=== PATIENT | male | born 1930 | race Caucasian/White ===

== ENCOUNTER → 2016-11-04 | Outpatient (CLI) | payer MEDICARE, OTHER ==
--- NOTE | 2016-11-04 10:57 | CT ---
EXAM DESCRIPTION: CT HEAD ANGIOGRAPHY WITH IV CONTRAST; CT HEAD WITHOUT IV CONTRAST CLINICAL HISTORY: 86 y/o M, Cerebral atherosclerosis; [facility] COMPARISON: None TECHNIQUE: Volumetric non contrasted CT of head was performed. Data was reconstructed for interpretation. Volumetric CT angiogram of the head was performed. The data was reconstructed into 3D rotational MIP images of the intracranial arterial structures. FINDINGS: CT head: There is considerable cerebral atrophy on today's study with prominent extra-axial spaces. No evidence of subdural hematoma. The ventricles are midline and unremarkable. Periventricular white matter disease noted. Old left frontal lobe encephalomalacia from prior infarct. 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 No acute intracranial blood on today's study. The orbits and the globes are unremarkable. Air-fluid levels noted within bilateral maxillary sinuses which can be compatible with acute sinusitis. CT angiogram of the head: No abrupt vascular occlusion on today's exam. Scattered luminal regularity is compatible with mild atherosclerotic disease. This is most pronounced within bilateral cavernous internal carotid arteries. No aneurysm greater than 3- 4 mm on today's exam. The left vertebral artery is dominant. The internal cerebral veins, cortical veins and dural venous sinuses are patent on today's study. 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 No evidence of severe stenosis or abrupt occlusion on today's study. No evidence of aneurysm greater than 3-4 mm in size. Electronically signed by: Travon Nieves MD 11/04/2016 10:55
== END ==
LOC: CT 09:31
PROVIDERS: ATTEND Psychiatry & Neurology Neurology
DX: G20 Parkinson's disease (principal); I67.2 Cerebral atherosclerosis; Z01.812 Encounter for preprocedural laboratory examination

== ENCOUNTER → 2017-09-06 | Outpatient (CLI) | payer MEDICARE, OTHER | END | disposition home or self-care (01) | LOC: GMAH 13:14 | PROVIDERS: ATTEND Family Medicine | DX: Z12.5 Encounter for screening for malignant neoplasm of prostate (principal); E78.2 Mixed hyperlipidemia | CPT/HCPCS: 84443; 84550; G0103 ==

== ENCOUNTER 2018-02-08 16:20 | Inpatient (IN) | payer MEDICARE, OTHER ==
--- NOTE | 2018-02-08 16:35 | HP ---
SUPERVISING PHYSICIAN: Tim Perry MD CHIEF COMPLAINT: Lower extremity swelling. HISTORY OF PRESENT ILLNESS: This is an 87-year-old male patient who came to see his primary care physician, Dr. Bob, today. He has had some swelling in his lower legs. His actually went out of time for several weeks and it is uncertain as the patient's compliance while she was gone, but the lower extremity edema has been going on for several days. He had some shortness of breath associated with it. He was in clinic today. He was a previous patient of Dr. Welch, manager nursing in [place], and no longer sees him. In January, he saw Dr. Mckeon for the first time. His last available echocardiogram was in 2010 and he an ejection fraction at that time of 65%. He had mild left ventricular hypertrophy and left atrial enlargement with underlying atrial flutter. His chest x-ray showed some vascular congestion and pulmonary edema and I was called for admission to the hospital. Past medical history and review of systems is limited due to the patient's inability to answer questions appropriately and there was no family available. Most information was taken from the EMR. PAST MEDICAL HISTORY: 1. Hyperlipidemia. 2. Gastroesophageal reflux disease. 3. Gout. 4. Hypertension. 5. Seasonal allergies. 6. Right knee pain. 7. Atrial fibrillation. 8. Coronary artery disease. 9. Hypothyroidism. 10. Hyperlipidemia. 11. Obstructive sleep apnea. 12. Congestive heart failure of unknown etiology with his last echocardiogram showing an ejection fraction of 65% in 2010. PAST SURGICAL HISTORY: 1. Appendectomy. 2. Pacemaker placement. 3. Coronary artery bypass graft. 4. Right total knee arthroplasty. 5. Left carotid endarterectomy. OUTPATIENT MEDICATIONS: Awaiting verification. ALLERGIES: NO KNOWN DRUG ALLERGIES. SOCIAL HISTORY: He denies tobacco or illicit drug use. He quit smoking in 1965. He drinks approximately 2 drinks of Scotch per day. REVIEW OF SYSTEMS: Limited except as per history of present illness due to the patient's mental status. PHYSICAL EXAMINATION: VITAL SIGNS: Afebrile. Heart rate 62. Blood pressure 164/92. Respiratory rate 20. O2 saturation 96% on room air. GENERAL: This is an 87-year-old male patient who is sitting up in his hospital bed. He has his CPAP in place. HEENT: Normocephalic, atraumatic. Pupils are equal and reactive. Oropharynx is clear. NECK: Supple without mass. There is no discernible jugular venous distention. RESPIRATORY: Bilateral crackles throughout. CHEST: There is equal rise and fall of the chest with inspiration and expiration. CARDIOVASCULAR: Regular rate and rhythm. There is a mild systolic murmur. GASTROINTESTINAL: Abdomen is soft, nondistended, nontender. Bowel sounds are positive. EXTREMITIES: He does have some pitting edema from just below the knee bilaterally extending distally to the feet. Pedal pulses are palpable at +1 to 2. NEUROLOGIC: Awake, alert and he answers some simple yes/no questions easily, but is easily confused. LABORATORY: WBCs 5.3, hemoglobin 10.6, hematocrit 32.1 PT 24.3, INR 2.1, PT-T 36.3. Sodium 131, potassium 4, chloride 97, carbon dioxide 26, BUN 21, creatinine 1.45. Glucose 106, serum osmolality 266, total bilirubin 1.3. Liver enzymes are within normal limits. BNP 716. Urinalysis shows moderate amount of urine blood and 30 to 40 urine RBCs. Chest x-ray shows vascular congestion. All other labs and films have been reviewed via the EMR. ASSESSMENT: 1. Exacerbation of congestive heart failure of unknown etiology. His last echocardiogram was in 2010 and his ejection fraction was 65%. 2. Electrolyte disturbance. 3. Hematuria. 4. Chronic renal insufficiency. 5. Gastroesophageal reflux disease. 6. Coronary artery disease. 7. Obstructive sleep apnea. 8. History of atrial fibrillation. PLAN: We will admit the patient to the hospital. I have initiated congestive heart failure guidelines. I will give him an extra dose of Lasix tonight. I will repeat his lab as well as chest x-ray in the morning. We will need to clarify his home medications as there are several duplicates on the list that we have and those will need to be clarified. We will also monitor the patient closely and follow as needed. Dr. Perry is the collaborating physician and available for consultation. #[id number] [facility]
[2018-02-08] MEDS ORDERED: NITROGLYCERIN 0.4 MG 25 EA TAB SL PRN (17:44)
[2018-02-08] MEDS ORDERED: MORPHINE SULFATE INJ 10 MG/ML VIAL IV PRN (17:44)
[2018-02-08] MEDS ORDERED: ENOXAPARIN SODIUM 40 MG/0.4 ML SYG SUBCU SCH (18:00)
[2018-02-08] MEDS ORDERED: IV SET AND CAP CHANGE INJ INJ SCH (18:00)
[2018-02-08] MEDS ORDERED: PANTOPRAZOLE SODIUM IV 40 MG VIAL IV SCH (18:00)
[2018-02-08] MEDS: FUROSEMIDE INJ 40 MG/4 ML VIAL IV SCH (18:46)
[2018-02-08] MEDS: SODIUM CHLORIDE 0.9% (FLUSH) 10 ML SYG IV PRN (18:47)
[2018-02-08] MEDS: SODIUM CHLORIDE 0.9% (FLUSH) 10 ML SYG IV SCH (20:37)
--- NOTE | 2018-02-09 07:26 | RAD ---
Examination: XR CHEST 2 VIEWS dated 02/09/2018 5:00 AM CDT History: chf Comparison: None Technique: 2 views of the chest Findings: Mild prominence of interstitial markings bilaterally without focal airspace consolidation. No pneumothorax or pleural effusion. Left chest wall cardiac pacer. Mild cardiomegaly. Prior CABG. Impression: Mild pulmonary vascular congestion. Electronically signed by: Thanh Benson MD 02/09/2018 7:25 AM CDT
[2018-02-09] MEDS: FUROSEMIDE INJ 40 MG/4 ML VIAL IV SCH ×2 (08:45→17:19)
[2018-02-09] MEDS: SODIUM CHLORIDE 0.9% (FLUSH) 10 ML SYG IV SCH ×2 (08:46→20:48)
[2018-02-09] MEDS ORDERED: ZOLPIDEM TARTRATE 10 MG TAB PO PRN (13:03)
[2018-02-09] MEDS ORDERED: POTASSIUM CHLORIDE 20 MEQ TAB PO ONE (13:07)
--- NOTE | 2018-02-09 14:50 | PN ---
SUPERVISING PHYSICIAN: Tim Perry MD DATE: 02/09/18 SUBJECTIVE: The patient is sitting up in his hospital bed. He continues complaints of swelling in his lower legs, but is much improved. He is also not as fatigued or short of breath as yesterday. He denies chest pain, nausea, vomiting, diarrhea. OBJECTIVE: VITAL SIGNS: Afebrile. Heart rate 60. Blood pressure 142/76. Respiratory rate 18. O2 saturation 90% on 2 liters nasal cannula. Intake 560 mL, output 3200 mL for a negative output of 2,640 mL. RESPIRATORY: A few scattered crackles across the apices, but much improved since yesterday. Somewhat diminished at the bases. CARDIAC: Regular rate and rhythm. Systolic murmur is noted. GASTROINTESTINAL: Abdomen is soft, nondistended, nontender. Bowel sounds are positive. EXTREMITIES: He has +2 edema from just below the knees down to the feet bilaterally. Skin is not as tight as yesterday. It has improved. NEUROLOGIC: Awake, alert. He does get easily confused with some simple questioning. LABORATORY: WBCs 5, hemoglobin 10.2, hematocrit 32.3. Sodium 133, potassium 3.5, chloride 96, BUN 20, creatinine 1.43, serum osmolality 269.6, magnesium 1.9. Urine culture pending. Chest x-ray shows mild pulmonary vascular congestion. All other labs and films have been reviewed via the EMR. ASSESSMENT: 1. Exacerbation of congestive heart failure of unknown etiology. His last echocardiogram was in 2010 and his ejection fraction was 65%. 2. Electrolyte disturbance. 3. Hematuria. 4. Chronic renal insufficiency. 5. Gastroesophageal reflux disease. 6. Coronary artery disease. 7. Obstructive sleep apnea. 8. History of atrial fibrillation. PLAN: We will continue present supportive care. I have ordered routine lab for in the morning. We will hold on a chest x-ray until later. Encouraged good pulmonary toilet including incentive spirometry. Continue his home medications. He will need an echocardiogram and is presently on a beta helen as well as an ARB and KERVIN. He needs to get up in the chair and ambulate at least 4 times a day. He will sees Dr. Mckeon and I will have the nurses call Dr. Mckeon' office to see the patient in the hospital tomorrow when Dr. Mckeon is in clinic. Hopefully we can government affairs director to p.o. Lasix tomorrow. Otherwise, we will continue to monitor the patient closely and follow as needed. #[id number] [facility]
[2018-02-09] MEDS: PANTOPRAZOLE SODIUM TAB 40 MG PO SCH (17:18)
[2018-02-09] MEDS: SODIUM CHLORIDE 0.9% (FLUSH) 10 ML SYG IV PRN (17:19)
[2018-02-09] MEDS: AMIODARONE HCL 200 MG TAB PO SCH (20:45)
[2018-02-09] MEDS: ALFUZOSIN HCL 10 MG PO SCH (20:45)
[2018-02-09] MEDS: IRBESARTAN 300 MG PO SCH (20:45)
[2018-02-09] MEDS: APIXABAN 2.5 MG TAB PO SCH (20:45)
[2018-02-09] MEDS: PRAMIPEXOLE 0.25 MG TAB PO SCH (20:46)
[2018-02-09] MEDS: MEMANTINE 10 MG TAB PO SCH (20:47)
[2018-02-09] MEDS: FINASTERIDE 5 MG TAB PO SCH (20:47)
[2018-02-09] MEDS: LEVOTHYROXINE SODIUM 0.1 MG TAB PO SCH (20:47)
[2018-02-09] MEDS: DETROL PO SCH (20:49)
[2018-02-09] MEDS: METOPROLOL SUCCINATE XL 50 MG TAB PO SCH (20:52)
[2018-02-09] MEDS ORDERED: ENOXAPARIN SODIUM 40 MG/0.4 ML SYG SUBCU SCH (21:00)
[2018-02-10] MEDS: PANTOPRAZOLE SODIUM TAB 40 MG PO SCH (06:18)
[2018-02-10] MEDS: PRAMIPEXOLE 0.25 MG TAB PO SCH ×2 (08:33→20:26)
[2018-02-10] MEDS: LORATADINE 10 MG TAB PO SCH (08:33)
[2018-02-10] MEDS: LISINOPRIL 10 MG TAB PO SCH (08:34)
[2018-02-10] MEDS: MEMANTINE 10 MG TAB PO SCH ×2 (08:34→20:27)
[2018-02-10] MEDS: POTASSIUM CHLORIDE 20 MEQ TAB PO SCH (08:34)
[2018-02-10] MEDS: APIXABAN 2.5 MG TAB PO SCH ×2 (08:34→20:26)
[2018-02-10] MEDS: ASPIRIN EC 81 MG TAB PO SCH (08:34)
[2018-02-10] MEDS: FUROSEMIDE INJ 40 MG/4 ML VIAL IV SCH (08:35)
[2018-02-10] MEDS: SODIUM CHLORIDE 0.9% (FLUSH) 10 ML SYG IV SCH ×2 (08:36→20:27)
[2018-02-10] MEDS: RIVASTIGMINE TARTRATE 4.5 MG PO SCH (08:42)
[2018-02-10] MEDS ORDERED: FEXOFENADINE HCL 180 MG PO SCH (09:00)
--- NOTE | 2018-02-10 18:45 | PN ---
SUPERVISING PHYSICIAN: Tim Perry MD DATE: 02/10/18 SUBJECTIVE: The patient is sitting up in his chair in his hospital room. He feels much better than he has. He has no shortness of breath. He also feels like his swelling has gone down substantially, especially in his face and his arms. He saw Dr. Mckeon in clinic today and we discussed Dr. Mckeon' findings. OBJECTIVE: VITAL SIGNS: Afebrile. Pulse rate 60. Blood pressure 129/72. Respiratory rate 20. O2 saturation 97% on room air. RESPIRATORY: Essentially clear to auscultation bilaterally. He is diminished at the bases. There is an occasional fine crackle in the apices. CARDIAC: Regular rate and rhythm. EXTREMITIES: He does have some +1 edema to his lower legs. There is +2 pedal edema to his bilateral feet. It is much improved since yesterday. Bilateral pedal pulses are palpable at +2. NEUROLOGIC: Awake, alert and oriented times three. LABORATORY: Sodium 131, potassium 3.8, chloride 96, BUN 20. Creatinine is improved to 1.3. Magnesium 1.9, total bilirubin 1.3. WBCs 5.7, hemoglobin 10.4 , hematocrit 31.6. Preliminary urine culture shows no growth after 24 hours. All other labs and films have been reviewed via the EMR. ASSESSMENT: 1. Exacerbation of congestive heart failure. The patient had an echocardiogram done today at Dr. Mckeon' office. His ejection fraction is 60%. He has some grade 3 to grade 4 diastolic dysfunction. 2. Electrolyte disturbance. 3. Hematuria. 4. Chronic renal insufficiency. 5. Gastroesophageal reflux disease. 6. Coronary artery disease. 7. Obstructive sleep apnea. 8. History of atrial fibrillation. PLAN: We will continue present supportive care. I discussed the patient's condition at length with Dr. Mckeon. He is to continue his present medications. There was a question if he was actually on Norvasc and his Norvasc had not been re-started here in the hospital, so he recommended we not continue the Norvasc. He is to continue on the amiodarone, metoprolol, Avapro, Lasix and Eliquis along with his other medications. He has an appointment with Dr. Mckeon in followup next Tuesday. At this point, I have held his NSAIDs due to his kidney function. That may be a question for Dr. Bob if he resumes those after discharge. I have ordered chest x-ray and lab for in the morning. We will continue to monitor the patient closely and follow as needed. Dr. Perry is the collaborating physician and available for consultation. #[id number] [facility]
[2018-02-10] MEDS: DETROL PO SCH (20:23)
[2018-02-10] MEDS: IRBESARTAN 300 MG PO SCH (20:25)
[2018-02-10] MEDS: GLYCOPYRROLATE PO SCH (20:25)
[2018-02-10] MEDS: ALFUZOSIN HCL 10 MG PO SCH (20:25)
[2018-02-10] MEDS: AMIODARONE HCL 200 MG TAB PO SCH (20:26)
[2018-02-10] MEDS: FINASTERIDE 5 MG TAB PO SCH (20:27)
[2018-02-10] MEDS: LEVOTHYROXINE SODIUM 0.1 MG TAB PO SCH (20:27)
[2018-02-10] MEDS: METOPROLOL SUCCINATE XL 50 MG TAB PO SCH (20:27)
[2018-02-10] MEDS ORDERED: ATORVASTATIN 20 MG TAB PO SCH (21:00)
[2018-02-11] MEDS: PANTOPRAZOLE SODIUM TAB 40 MG PO SCH (06:10)
--- NOTE | 2018-02-11 06:39 | RAD ---
EXAM DESCRIPTION: Chest,2 Views CLINICAL HISTORY: chf COMPARISON: 02/09/2018 FINDINGS: Frontal and lateral views of the chest. Median sternotomy. Atherosclerotic calcification aortic arch. Cardiomegaly. Left-sided pacemaker. Low lung volumes. No acute pneumonic process. Pulmonary vascular congestion. No large effusion. Degenerative change of the spine. No acute osseous abnormalities Upper abdominal soft tissues are unremarkable. IMPRESSION: 1. No significant interval change. Electronically signed by: Ranjan Cleveland 02/11/2018 6:38 AM CDT
[2018-02-11] MEDS: POTASSIUM CHLORIDE 20 MEQ TAB PO SCH (08:16)
[2018-02-11] MEDS ORDERED: FUROSEMIDE 40 MG TAB PO SCH (09:00)
[2018-02-11] MEDS: LISINOPRIL 10 MG TAB PO SCH (09:13)
[2018-02-11] MEDS: MEMANTINE 10 MG TAB PO SCH (09:13)
[2018-02-11] MEDS: ASPIRIN EC 81 MG TAB PO SCH (09:13)
[2018-02-11] MEDS: LORATADINE 10 MG TAB PO SCH (09:14)
[2018-02-11] MEDS: PRAMIPEXOLE 0.25 MG TAB PO SCH (09:14)
[2018-02-11] MEDS: APIXABAN 2.5 MG TAB PO SCH (09:14)
[2018-02-11] MEDS: SODIUM CHLORIDE 0.9% (FLUSH) 10 ML SYG IV SCH (09:15)
[2018-02-11] MEDS: RIVASTIGMINE TARTRATE 4.5 MG PO SCH (09:15)
[2018-02-11] MEDS: GLYCOPYRROLATE PO SCH (09:17)
[2018-02-11 11:51] VITALS: BP 134/78; TEMP 97.4; O2SAT 99
--- NOTE | 2018-02-13 11:51 | DS ---
SUPERVISING PHYSICIAN: Tim Perry MD DISCHARGE DIAGNOSES: 1. Exacerbation of congestive heart failure with an echocardiogram on current admission by Dr. Mckeon' office showing ejection fraction of 60% with a grade 3 to grade grade 4 diastolic dysfunction. 2. Electrolyte imbalance to include hypokalemia and hyponatremia. 3. Hematuria requiring close followup in outpatient setting. 4. Chronic renal insufficiency. 5. Gastroesophageal reflux disease. 6. Coronary artery disease. 7. Obstructive sleep apnea. 8. History of atrial fibrillation.with a controlled ventricular rate on current \ admission. REASON FOR HOSPITALIZATION: Mr. Farrar is an 87 year-old male patient who was seen in the office of Dr. Bob on date of admission with some lower leg swelling. His actually went out of town for several weeks and is not certain the patient was compliant with his medications while she was gone. The lower extremity edema has been going on for several days. He had some shortness of breath associated with it. He was in the clinic and seen previously by Dr. Welch, scientist in [place] who he no longer sees. In January he saw Dr. Mckeon for the first time and his last echocardiogram was in 2010 in which he had an ejection fraction at that time of 65% with a mild left ventricular hypertrophy and left atrial enlargement with underlying atrial flutter. His chest x-ray on admission showed vascular congestion and pulmonary edema. At that point, he was admitted to the hospital directly for exacerbation of congestive heart failure. LABORATORY STUDIES: CBC on admission showed a white count of 5,300, discharge 4 ,800. Hemoglobin and hematocrit were stable at 10.1 and 30.0. RBCs were within normal limits. Platelet count normal at 154,000. Differential showed to be without a left shift. Coagulation studies showed PT of 24.2, INR 2.1 with the patient on Eliquis. PTT was normal. Chemistries showed a hyponatremia initially with sodium of 131, potassium 4.0, BUN 21, creatinine 1.45, calcium 8.9, magnesium 1.9, bilirubin slightly elevated at 1.3. AST, ALT , alkaline phosphatase all within normal limits. BNP was elevated. After treatment and prior to discharge, electrolytes were still showing a significant hyponatremia but improved at 134, potassium was down to 3.3, BUN 20, creatinine 1.26. His osmolality had gone from 266 to 271, calcium 8.6. MICROBIOLOGY: Urine culture showed no growth at 48 hours.] RADIOLOGY: 2-view chest x-ray on the morning after admission and per radiology interpretation showed mild vascular congestion with followup with an additional chest x-ray on 02/11/18 prior to discharge and per radiology interpretation showed no significant interval changes. Please refer to those x-rays for full details. HOSPITAL COURSE: Mr. Farrar is admitted on 02/08 for exacerbation of congestive heart failure. He was put on fluid restriction and diureses with IV Lasix which he had good response to. I&O indicated that he had a negative balance prior to discharge and had dropped his weight initially from 110.1 kg to 106.6 kg. Vital signs showed to be stable with temperature 97.4, pulse 62, blood pressure 134/78, respirations 16, saturation 99% on room air. On admission his 02 saturations were showing 92% on room air. He had some desaturations with some aggressive effort down into the low 90s. He had no clinical complaints, had no chest pains and his edema had resolved down to a trace prior to discharge and he was felt clinically stable enough to continue with outpatient treatment management. He was seen in consultation by Dr. Mckeon who did an echocardiogram as noted above with an ejection fraction of 60 % with a grade 3 to 4 diastolic dysfunction. His medications will continue as previous except there was indication a some point he was on Norvasc and he was told to not take the Norvasc which could be exacerbating his lower extremity edema as well as given his worsening kidney function, Dr. Mckeon decreased his Eliquis dosing from 5 mg twice a day to 2.5 mg twice a day. PLAN: Mr. Farrar was discharged on 02/11/18 to have close clinical followup with his primary care physician, Dr. Bob. He was to call Dr. Bob's office on Tuesday and he also had a followup appointment with Dr. Mckeon on Tuesday after discharge. He was told to stop NSAIDS including Aleve, Advil, ibuprofen until he sees Dr. Bob. He is also to lower his dose of Eliquis from 5 b..i.d. to 2.5 mg. He is to resume all his medications as instructed and return to the hospital should he have any worsening symptoms. Discharge diet was low-salt diet, fluid restrictions, activity to increase as tolerated. Discharge medications: Eliquis 2.5 mg, #30. All new medications resume as previous. Condition on discharge was stable and improved. [id number] [facility]
== END 2018-02-11 15:06 | disposition home or self-care (01) | DRG 291 ==
LOC: MS 16:20
PROVIDERS: ADMIT Nurse Practitioner Acute Care; ATTEND Nurse Practitioner Family
DX: I13.0 Hypertensive heart and chronic kidney disease with heart failure and stage 1 through stage 4 chronic kidney disease, or unspecified chronic kidney disease (principal); I50.33 Acute on chronic diastolic (congestive) heart failure; E87.1 Hypo-osmolality and hyponatremia; E87.6 Hypokalemia; R31.9 Hematuria, unspecified; N18.9 Chronic kidney disease, unspecified; K21.9 Gastro-esophageal reflux disease without esophagitis; I25.10 Atherosclerotic heart disease of native coronary artery without angina pectoris; G47.33 Obstructive sleep apnea (adult) (pediatric); I48.91 Unspecified atrial fibrillation; E78.5 Hyperlipidemia, unspecified; M10.9 Gout, unspecified; J30.9 Allergic rhinitis, unspecified; E03.9 Hypothyroidism, unspecified; Z91.14 Patient's other noncompliance with medication regimen; Z95.1 Presence of aortocoronary bypass graft; Z95.0 Presence of cardiac pacemaker; Z96.651 Presence of right artificial knee joint; Z79.02 Long term (current) use of antithrombotics/antiplatelets; Z87.891 Personal history of nicotine dependence; Z79.899 Other long term (current) drug therapy

== ENCOUNTER → 2018-07-18 | Outpatient (CLI) | payer MEDICARE, OTHER | LOC: GMAH 14:46 | PROVIDERS: ATTEND Family Medicine | DX: I50.9 Heart failure, unspecified (principal) ==

== ENCOUNTER 2019-03-09 09:59 | Observation (INO) | payer MEDICARE, OTHER ==
--- NOTE | 2019-03-09 10:24 | ED.PDOC ---
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 - History of Present Illness Timing/Duration: 1 week Severity: moderate Improving Factors: nothing Worsening Factors: nothing Associated Symptoms: denies symptoms Allergies/Adverse Reactions: Allergies NO KNOWN ALLERGY Allergy (Verified 02/08/18 20:14) Home Medications: Ambulatory Orders Amiodarone HCl [Pacerone] 200 mg PO BEDTIME 06/24/16 Aspirin [Aspirin EC] 81 mg PO DAILY 06/24/16 Finasteride [Proscar] 5 mg PO BEDTIME 06/24/16 Furosemide [Lasix] 20 mg PO DAILY 06/24/16 Ibuprofen 800 mg PO Q8HRS PRN 06/24/16 Metoprolol Succinate [Metoprolol Succinate ER] 50 mg PO BEDTIME 06/24/16 Multiple Vitamins W/ Minerals [Multi For Him 50+] 1 tab PO DAILY 06/24/16 Potassium Chloride [K-Tab] 20 meq PO DAILY 06/24/16 Tolterodine Tartrate ER [Detrol LA] 2 mg PO BEDTIME 06/24/16 Zolpidem Tartrate [Ambien] 10 mg PO BEDTIME PRN 06/24/16 Levothyroxine Sodium [Synthroid] 100 mcg PO BEDTIME 06/29/16 Atorvastatin Calcium [Lipitor] 20 mg PO DAILY 02/08/18 Memantine HCl [Namenda] 10 mg PO DAILY 02/08/18 Pantoprazole Tablet [Protonix] 40 mg PO DAILY 02/08/18 Rivastigmine Tartrate 4.5 mg PO BID 02/08/18 Apixaban [Eliquis] 2.5 mg PO BID #30 tab 02/11/18 Alfuzosin HCl [Uroxatral] 10 mg PO DAILY 03/09/19 Losartan Potassium 100 mg PO DAILY 03/09/19 Meloxicam [Mobic] 7.5 mg PO DAILY 03/09/19 Metolazone 2.5 mg PO DAILY 03/09/19 Sacubitril-Valsartan [Entresto 24-26 mg] 1 tab PO BID 03/09/19 Review of Systems - Review of Systems Constitutional: States: weakness EENTM: States: no symptoms reported Respiratory: States: no symptoms reported Cardiology: States: no symptoms reported Gastrointestinal/Abdominal: States: constipation Genitourinary: States: no symptoms reported Musculoskeletal: States: no symptoms reported Skin: States: no symptoms reported Neurological: States: no symptoms reported Endocrine: States: no symptoms reported Hematologic/Lymphatic: States: no symptoms reported Past Medical History (General) - Patient Medical History Hx Stroke: No Hx Dementia: Yes Hx Asthma: No Hx of COPD: No Hx Congestive Heart Failure: No Hx Pacemaker: Yes Hx Hypertension: Yes Hx Diabetes: No Hx MRSA: No Surgical History: pacemaker - Social History Hx Alcohol Use: - drinks 2 scotch/night Family Medical History - Family History Father Family History: Unknown Physical Exam - Physical Exam General Appearance: Alert, Lethargic Ears, Nose, Throat: hearing grossly normal, normal ENT inspection, normal pharynx Neck: non-tender, full range of motion, supple Respiratory: chest non-tender, lungs clear, normal breath sounds Cardiovascular/Chest: normal peripheral pulses, regular rate, rhythm, no edema Gastrointestinal/Abdominal: normal bowel sounds, non tender, soft, no organomegaly, distended Rectal Exam: normal exam, normal rectal tone Back Exam: normal inspection, no CVA tenderness Extremity: normal range of motion, non-tender, normal inspection, no pedal edema Neurologic: strategy manager II-XII nml as tested, no motor/sensory deficits, alert, normal mood/affect, oriented x 3 Skin Exam: normal color Lymphatic: no adenopathy Progress - Results/Orders Results/Orders: Laboratory Tests 03/09/19 03/09/19 03/09/19 10:00 10:05 10:21 WBC RBC Hgb Hct MCV MCH MCHC RDW Plt Count MPV Absolute Neuts (auto) Absolute Lymphs (auto) Absolute Monos (auto) Absolute Eos (auto) Absolute Basos (auto) Neutrophils % Lymphocytes % Monocytes % Eosinophils % Basophils % PT 15.8 H INR 1.59 H PTT (SP) 32.8 H Sodium Potassium Chloride Carbon Dioxide Anion Gap BUN Creatinine BUN/Creatinine Ratio Random Glucose Serum Osmolality Calcium Total Bilirubin AST ALT Alkaline Phosphatase Serum Total Protein Albumin Globulin Albumin/Globulin Ratio Urine Color Yellow Urine Appearance Clear Urine pH 7.0 Ur Specific [place] 1.015 Urine Protein Negative Urine Glucose (UA) Negative Urine Ketones Negative Urine Blood Negative Urine Nitrite Negative Urine Bilirubin Negative Urine Urobilinogen 1.0 Ur Leukocyte Esterase Negative Urine RBC 0-1 Urine WBC 0-1 Ur Epithelial Cells 0-1 Urine Bacteria 0 Stool Occult Blood Positive 03/09/19 03/09/19 10:26 10:26 WBC 6.4 RBC 3.58 L Hgb 11.0 L Hct 32.8 L MCV 91.5 MCH 30.8 MCHC 33.6 RDW 14.8 H Plt Count 155 MPV 7.3 L Absolute Neuts (auto) 4.10 Absolute Lymphs (auto) 1.30 Absolute Monos (auto) 0.80 Absolute Eos (auto) 0.10 Absolute Basos (auto) 0.00 Neutrophils % 64.0 Lymphocytes % 20.9 Monocytes % 12.8 H Eosinophils % 1.7 Basophils % 0.6 PT INR PTT (SP) Sodium 124 L Potassium 3.4 L Chloride 89 L Carbon Dioxide 24 Anion Gap 14.4 BUN 35 H Creatinine 1.59 H BUN/Creatinine Ratio 22.0 H Random Glucose 112 H Serum Osmolality 258.4 L Calcium 8.8 Total Bilirubin 1.4 H AST 62 H ALT 52 Alkaline Phosphatase 57 Serum Total Protein 6.9 Albumin 3.8 Globulin 3.1 Albumin/Globulin Ratio 1.2 Urine Color Urine Appearance Urine pH Ur Specific [place] Urine Protein Urine Glucose (UA) Urine Ketones Urine Blood Urine Nitrite Urine Bilirubin Urine Urobilinogen Ur Leukocyte Esterase Urine RBC Urine WBC Ur Epithelial Cells Urine Bacteria Stool Occult Blood Departure - Departure Clinical Impression: Acute urinary retention, Occult GI bleeding, CAD (coronary artery disease), Chronic atrial fibrillation, Hyponatremia, Acute kidney injury Time of Disposition: 12:20 Disposition: Admit Patient Condition: Good Departure Forms: ED Discharge - Pt. Copy, Patient Portal Self Enrollment Referrals: Brock Bob MD [Primary Care Provider] - 1-2 Weeks Home Medications: Ambulatory Orders Amiodarone HCl [Pacerone] 200 mg PO BEDTIME 06/24/16 Aspirin [Aspirin EC] 81 mg PO DAILY 06/24/16 Finasteride [Proscar] 5 mg PO BEDTIME 06/24/16 Furosemide [Lasix] 20 mg PO DAILY 06/24/16 Ibuprofen 800 mg PO Q8HRS PRN 06/24/16 Metoprolol Succinate [Metoprolol Succinate ER] 50 mg PO BEDTIME 06/24/16 Multiple Vitamins W/ Minerals [Multi For Him 50+] 1 tab PO DAILY 06/24/16 Potassium Chloride [K-Tab] 20 meq PO DAILY 06/24/16 Tolterodine Tartrate ER [Detrol LA] 2 mg PO BEDTIME 06/24/16 Zolpidem Tartrate [Ambien] 10 mg PO BEDTIME PRN 06/24/16 Levothyroxine Sodium [Synthroid] 100 mcg PO BEDTIME 06/29/16 Atorvastatin Calcium [Lipitor] 20 mg PO DAILY 02/08/18 Memantine HCl [Namenda] 10 mg PO DAILY 02/08/18 Pantoprazole Tablet [Protonix] 40 mg PO DAILY 02/08/18 Rivastigmine Tartrate 4.5 mg PO BID 02/08/18 Apixaban [Eliquis] 2.5 mg PO BID #30 tab 02/11/18 Alfuzosin HCl [Uroxatral] 10 mg PO DAILY 03/09/19 Losartan Potassium 100 mg PO DAILY 03/09/19 Meloxicam [Mobic] 7.5 mg PO DAILY 03/09/19 Metolazone 2.5 mg PO DAILY 03/09/19 Sacubitril-Valsartan [Entresto 24-26 mg] 1 tab PO BID 03/09/19 Comments: DISCUSSED WITH DR ASENCIO WHO WILL TAKE OVER THE MANAGEMENT OF THE PATIENT IN HOSPITAL
--- NOTE | 2019-03-09 10:53 | RAD ---
EXAM: Chest,1 View CLINICAL HISTORY: Congestive heart failure COMPARISON STUDY: February 11, 2018 FINDINGS: Single view of the chest demonstrates an enlarged cardiac silhouette. There is no overt edema or visible central vascular congestion. No large effusion is identified. There is no consolidation. Sternotomy wires are present. The pacemaker stable. IMPRESSION: CARDIOMEGALY WITHOUT ACUTE ABNORMALITY. Electronically signed by: Graham Dominguez MD 03/09/2019 10:51 AM CDT
[2019-03-09] MEDS ORDERED: SODIUM CHLORIDE 0.9% 500ML 500 ML IVS ONE (11:39)
--- NOTE | 2019-03-09 11:41 | CT ---
EXAM DESCRIPTION: Head CLINICAL HISTORY: AMS COMPARISON: Previous CT head November 04, 2016 TECHNIQUE: Noncontrast head CT was performed with routine protocol. FINDINGS: Normal lang-white matter differentiation. Ventricles and sulci are prominent consistent with age-related cerebral volume loss. Prominent extra-axial CSF spaces around the cerebral hemispheres. CSF spaces prominent around the cerebellar hemispheres with cystic area along the posterior superior aspect of the left cerebellar hemisphere measuring 3.6 x 8.1 cm consistent with arachnoid cyst. This previously measured 3.6 x 8.3 cm. No interval growth. No high density hemorrhage, focal edema or shift of the midline. No sulcal effacement. Normal orbital contents. Basilar cisterns appear clear. Intact calvarium with no fracture or lytic lesion. Arteriosclerotic calcification of the intracranial internal carotid arteries and left middle cerebral artery as progressed. Normal aeration of tympanic cavities and mastoid air cells. No fluid levels in the paranasal sinuses. Skull base appears intact. Symmetrical internal auditory canals. Coronal and sagittal reformatted images confirm the findings. IMPRESSION: No acute intracranial pathologic process. This exam was performed according to our departmental dose-optimization program, which includes automated exposure control, adjustment of the mA and/or kV according to patient size and/or use of iterative reconstruction technique. Total DLP equals 967.47 mGycm. Electronically signed by: Bhavesh Valentin MD 03/09/2019 11:39 AM CDT
[2019-03-09] MEDS ORDERED: SODIUM CHLORIDE 0.9% 1000ML 1,000 ML IVS ONE (11:42)
--- NOTE | 2019-03-09 11:44 | CT ---
EXAM DESCRIPTION: Abdomen/Pelvis w/Contrast CLINICAL HISTORY: 88 years Male, ABD DISTENSION NAD PAIN COMPARISON: 24 September 2009 TECHNIQUE: Transaxial images were obtained with intravenous contrast medium without oral contrast media. Sagittal and coronal reconstruction was performed.This exam was performed according to our departmental dose-optimization program, which includes automated exposure control, adjustment of the mA and/or kV according to patient size and/or use of iterative reconstruction technique. FINDINGS: The lung bases are clear. A pacemaker is observed in the heart. The liver and spleen are unremarkable. A gallstone is observed in the gallbladder. No adrenal masses are detected. The pancreas is normal in appearance. Calcific atherosclerotic changes observed in the abdominal aorta without evidence of aneurysmal dilatation. Imaging of the kidneys reveals no evidence of hydronephrosis mass cyst or calcification. Small accessory spleen is observed. Diverticulosis of the colon is observed without evidence of diverticulitis. Marked distention of urinary bladder is observed. No inguinal region abnormality is seen. Degenerative changes are observed in the lumbar spine. IMPRESSION: 1. Cholelithiasis. 2. Uncomplicated diverticulosis of colon. 3. Marked distention of urinary bladder is observed suggesting bladder outlet obstruction. Electronically signed by: Jose Piedra MD 03/09/2019 11:42 AM CDT
--- NOTE | 2019-03-09 12:35 | HP ---
HISTORY OF PRESENT ILLNESS: The patient is an 88-year-old gentleman who lives at home with his who was brought to the clinic early this morning with slightly decreasing mentation over a couple of weeks along with very profound increase in shortness of breath and weakness with minimal exertion. At the clinic visit, the also commented that several times over the last couple of weeks there was a minor amount of blood seen in his underwear and on his sheets while changing. Otherwise, she states he has been about the same as far as his mentation goes, but just is a little bit more quiet in social situations than normal. He was sent to the Emergency Room after that for evaluation for fecal impaction and assessment of rectal bleeding and mentation decline. In the Emergency Room, he was found to be slightly hyponatremic with a minor elevation of BUN and creatinine from his baseline. He was found to be Hemoccult positive on digital rectal examination without any savana blood appreciated. Abdominopelvic CT also noted some diverticulosis without infection. Also noted was moderate bladder distention significant for bladder outlet obstruction. The Emergency Room physician was able to catheterize the patient and retrieve 1800 mL of urine. Urinalysis was clean with no sign of infection. Hospitalist was called for potential admission for observation given the above problems. REVIEW OF SYSTEMS: GENERAL: The patient is lying in bed asleep, but easy to arouse, baseline in mentation. RESPIRATORY: No cough or shortness of breath while resting. CARDIAC: Denies any chest pain or palpitations, does have baseline pedal edema bilaterally. GASTROINTESTINAL: Denies abdominal pain, slight constipation per the . NEUROLOGICAL: Near baseline regarding mentation per the , he denies any headache at this time. SKIN: Nurse noted reddening and skin thinning in bilateral inguinal creases, the was unaware. PAST MEDICAL HISTORY: 1. Congestive heart failure of unknown type. 2. Coronary artery disease. 3. Chronic atrial fibrillation on anticoagulation. 4. Status post pacemaker placement. 5. Hypothyroidism. PAST SURGICAL HISTORY: 1. Pacemaker placement. 2. Right knee arthroplasty. 3. Appendectomy. MEDICATIONS: 1. Amiodarone. 2. Aspirin. 3. Finasteride. 4. Lasix. 5. Metoprolol. 6. Levothyroxine. 7. Atorvastatin. 8. Namenda. 9. Eliquis. 10. Rivastigmine. 11. Metolazone. For remainder of medications, please see the chart. SOCIAL HISTORY: He denies illicit drug use or tobacco use, does drink scotch and club soda, very diluted, a couple of times per week. PHYSICAL EXAMINATION: VITAL SIGNS: Temperature 97.1. Pulse paced rhythm at 60 beats per minute. Blood pressure 120/80. Respiratory rate 16. O2 saturation 97% on room air. GENERAL: The patient is lying in bed sleeping, but easily arouses, no acute distress and in good spirits. RESPIRATORY: Lungs clear to auscultation without bibasilar crackles, no wheezing. CARDIOVASCULAR: Normal rate and rhythm, II/ holosystolic murmur, pulses equal in all extremities at 2+. GASTROINTESTINAL: Soft, nontender to palpation, no masses. SKIN: Reddening of skin in bilateral inguinal areas with skin thinning and satellite lesion indicative of infection, slight moist discharge in the creases from infection with odor. NEUROLOGIC: Alert and oriented to person and place, no focal deficits. LABORATORY: WBC 6.4, hemoglobin 11, hematocrit 32.8, platelet count 155. PT 15.8, INR 1.59, PTT 32.8. Sodium 124, potassium 3.4, chloride 89, CO2 24, BUN 35, creatinine 1.59. Total bilirubin 1.4, AST 62. All others within normal limits. Urinalysis negative for infection. Stool occult blood positive. RADIOLOGY: Abdominopelvic CT with contrast 03/09/19 shows 1) Cholelithiasis, 2) Uncomplicated diverticulosis of colon, 3) Marked distention of urinary bladder suggesting bladder outlet obstruction. Head CT without contrast 03/09/19 shows no acute intracranial process. Chest x-ray 03/09/19 shows cardiomegaly without acute abnormality. ASSESSMENT: 1. Hyponatremia. 2. Hypochloremia. 3. Normocytic anemia. 4. Diverticulosis. 5. Hemoccult stool positive. 6. Diffuse weakness. 7. Constipation versus fecal impaction. 8. Unspecified congestive heart failure. 9. Coronary artery disease. 10. Chronic atrial fibrillation on anticoagulation. 11. Status post pacemaker placement. 12. Chronic hypothyroidism. 13. Chronic hypertension. PLAN: The patient's admission is multifactorial, but I suspect rapid improvement. We will address his hyponatremia and electrolyte abnormalities with normal saline at maintenance rate, given his ability to adequate p.o. intake per the and the patient. Given his complaint of rectal bleeding and very minimal normocytic anemia, I am going to run hemoglobin and hematocrit q.8h. until tomorrow to assess any decline in hemoglobin. After that time, he may be able to undergo a simple enema. In the meantime, we will continue MiraLAX, but dose that medicine b.i.d. He has physical therapy arranged his home health company, [employer]. We will get physical therapy evaluation while here and ask for help in disposition assistance. We will follow his labs in the following days to make sure his electrolyte abnormalities normalize. I assume he will be here for at least one, possibly two midnights. The patient's primary care physician is Dr. Bob. Plan discussed in detail with the patient, and daughter of the patient, all in agreement. #[id number] MTDD
[2019-03-09] MEDS ORDERED: SODIUM CHLORIDE 0.9% (FLUSH) 10 ML SYG IV PRN (13:05)
[2019-03-09] MEDS ORDERED: ALFUZOSIN HCL 10 MG PO SCH (13:15)
[2019-03-09] MEDS ORDERED: metOLazone 2.5 MG TAB PO SCH (13:30)
[2019-03-09] MEDS ORDERED: LOSARTAN POTASSIUM 100 MG TAB PO SCH (13:30)
[2019-03-09] MEDS: MEMANTINE 10 MG TAB PO SCH (15:22)
[2019-03-09] MEDS: APIXABAN 2.5 MG TAB PO SCH ×2 (15:23→20:42)
[2019-03-09] MEDS: SODIUM CHLORIDE 0.9% 1000ML 1,000 ML IVS PRN (16:21)
[2019-03-09] MEDS: ALFUZOSIN HCL 10 MG PO SCH (20:39)
[2019-03-09] MEDS: AMIODARONE HCL 200 MG TAB PO SCH (20:41)
[2019-03-09] MEDS: GLYCOPYRROLATE 2 MG PO SCH (20:43)
[2019-03-09] MEDS: POLYETHYLENE GLYCOL 3350 17 GM PCKT PO SCH (20:44)
[2019-03-09] MEDS: NYSTATIN POWDER 15GM BTTL TOP SCH (20:44)
[2019-03-09] MEDS: FINASTERIDE 5 MG TAB PO SCH (20:45)
[2019-03-09] MEDS: RIVASTIGMINE TARTRATE 4.5 MG PO SCH (20:45)
[2019-03-09] MEDS: SACUBITRIL VALSARTAN PO SCH (20:45)
[2019-03-09] MEDS: METOPROLOL SUCCINATE XL 50 MG TAB PO SCH (20:49)
[2019-03-09] MEDS: LEVOTHYROXINE SODIUM 0.1 MG TAB PO SCH (20:52)
[2019-03-09] MEDS ORDERED: TOLTERODINE TARTRATE ER 4 MG CAP PO SCH (21:00)
[2019-03-10] MEDS: SODIUM CHLORIDE 0.9% 1000ML 1,000 ML IVS PRN ×3 (00:05→21:38)
[2019-03-10] MEDS: IV SET AND CAP CHANGE INJ INJ SCH (06:07)
[2019-03-10] MEDS: metOLazone 2.5 MG TAB PO SCH (06:09)
[2019-03-10] MEDS ORDERED: POTASSIUM CHLORIDE 20 MEQ TAB PO ONE (06:40)
[2019-03-10] MEDS: ASPIRIN (ENTERIC COATED) 81 MG TAB PO SCH (10:39)
[2019-03-10] MEDS: POTASSIUM CHLORIDE 20 MEQ TAB PO SCH (10:39)
[2019-03-10] MEDS: ATORVASTATIN 20 MG TAB PO SCH (10:39)
[2019-03-10] MEDS: PANTOPRAZOLE SODIUM TAB 40 MG PO SCH (10:39)
[2019-03-10] MEDS: MEMANTINE 10 MG TAB PO SCH (10:39)
[2019-03-10] MEDS: APIXABAN 2.5 MG TAB PO SCH ×2 (10:39→20:46)
[2019-03-10] MEDS: FUROSEMIDE 40 MG TAB PO SCH (10:40)
[2019-03-10] MEDS: RIVASTIGMINE TARTRATE 4.5 MG PO SCH (10:41)
[2019-03-10] MEDS: SACUBITRIL VALSARTAN PO SCH ×2 (10:42→20:49)
[2019-03-10] MEDS: GLYCOPYRROLATE 2 MG PO SCH ×2 (10:47→20:45)
[2019-03-10] MEDS: POLYETHYLENE GLYCOL 3350 17 GM PCKT PO SCH (10:48)
[2019-03-10] MEDS: NYSTATIN POWDER 15GM BTTL TOP SCH ×4 (10:48→20:47)
--- NOTE | 2019-03-10 19:38 | PN ---
DATE: 03/10/19 SUPERVISING PHYSICIAN: Jonathan Nichole M.D. SUBJECTIVE: The patient is resting in the bedside chair. Appears to be comfortable. He is still having some intermittent urges to have bowel movements but is not having any real good results. Discussed that I feel like maybe that he is constipated, especially with some large amount of stool in his rectum that is possibly resulting in his urinary retention. I did discuss with him and his that we would work to relieve his constipation and work to get his Adams out. They are in agreement with that. We also did discuss that the does want the patient if he is a good candidate to go to outpatient rehab through [facility]. OBJECTIVE: VITAL SIGNS: Temperature 97.4, pulse 59, blood pressure 96/58, respirations 18, satting 97% on room air. I's and O's show a negative balance of 5862. Weight 103.0 kg. GENERAL: The patient is resting comfortably. Appears to be in no acute distress. CHEST: Lung sounds are clear to auscultation. HEART: Regular rate and rhythm. ABDOMEN: Obese but soft, non- tender. Positive bowel sounds. GENITOURINARY: Adams catheter remains in place with clear yellow urine in the Adams bag with no signs of complications. EXTREMITIES: Without any edema. NEUROLOGIC: He is alert and oriented times three. LABORATORY: White count 5, 600, hemoglobin showing to be stable through the every 8 hours cycle of H&Hs and now is at 10.2 and 30.5, platelet count 130,000. Differential shows to be without a left shift. Chemistries: Sodium is improving slightly, it is up to 128. Potassium is down to 2.9, chloride 94, BUN 29, creatinine 1.3 which is improved from yesterday. ASSESSMENT: 1. Electrolyte imbalance with hyponatremia, hypochloremia and hypokalemia secondary to diuresis with Lasix and Zaroxolyn showing some slight improvement with fluids. 2. Normocytic anemia, but showing to be stable. 3. Diverticulosis without any evidence of diverticulitis. 4. Hemoccult stool positive with stable H&H likely due to constipation. 5. Diffuse weakness exacerbated by #1 showing some slight improvement with therapy and fluids. 6. Constipation versus fecal impaction likely resulting in some mechanical urinary retention from bladder outlet obstruction requiring more aggressive management with laxatives and mechanical disimpaction. 7. Congestive heart failure of unknown etiology, likely a diastolic combined systolic, but showing to be stable with no exacerbation noted. 8. Coronary artery disease. 9. Chronic atrial fibrillation showing to have a controlled ventricular rate on chronic anticoagulation. 10. Status post pacemaker placement. 11. Chronic hypothyroidism on supplementation. 12. Chronic hypertension showing to be stable. PLAN: Will work to remove the large amount of stool seen in his rectum on CT study. Will start with a soap suds enema. If we have good results with this, then will utilize MiraLAX and Milk of Magnesia. Will leave the Adams in for right now until we can get him cleaned out. Once he is showing good bowel movements will remove the Adams and see if he does have any additional retention of urine. Will continue with physical therapy. Will consult with [facility] on Tuesday for rehabilitation efforts. Anticipate the patient will discharge at least on Tuesday or Tuesday. Until then will continue to monitor and treat as needed. #[id number] [facility]
[2019-03-10] MEDS: ALFUZOSIN HCL 10 MG PO SCH (20:45)
[2019-03-10] MEDS: TOLTERODINE TARTRATE ER 4 MG CAP PO SCH (20:46)
[2019-03-10] MEDS: METOPROLOL SUCCINATE XL 50 MG TAB PO SCH (20:46)
[2019-03-10] MEDS: AMIODARONE HCL 200 MG TAB PO SCH (20:46)
[2019-03-10] MEDS: LEVOTHYROXINE SODIUM 0.1 MG TAB PO SCH (20:47)
[2019-03-10] MEDS: FINASTERIDE 5 MG TAB PO SCH (20:49)
[2019-03-11] MEDS ORDERED: ALPRAZolam 0.25 MG TAB PO ONE (00:44)
[2019-03-11] MEDS: metOLazone 2.5 MG TAB PO SCH (06:24)
[2019-03-11] MEDS: SODIUM CHLORIDE 0.9% 1000ML 1,000 ML IVS PRN (06:27)
[2019-03-11] MEDS: MEMANTINE 10 MG TAB PO SCH (09:57)
[2019-03-11] MEDS: MAGNESIUM HYDROXIDE 30 ML UD PO SCH (09:57)
[2019-03-11] MEDS: PANTOPRAZOLE SODIUM TAB 40 MG PO SCH (09:57)
[2019-03-11] MEDS: APIXABAN 2.5 MG TAB PO SCH ×2 (09:57→20:48)
[2019-03-11] MEDS: POTASSIUM CHLORIDE 20 MEQ TAB PO SCH (09:57)
[2019-03-11] MEDS: ATORVASTATIN 20 MG TAB PO SCH (09:57)
[2019-03-11] MEDS: ASPIRIN (ENTERIC COATED) 81 MG TAB PO SCH (09:57)
[2019-03-11] MEDS: SACUBITRIL VALSARTAN PO SCH ×2 (09:58→20:40)
[2019-03-11] MEDS: RIVASTIGMINE TARTRATE 4.5 MG PO SCH (09:58)
[2019-03-11] MEDS: FUROSEMIDE 40 MG TAB PO SCH (09:59)
[2019-03-11] MEDS: GLYCOPYRROLATE 2 MG PO SCH ×2 (09:59→20:41)
[2019-03-11] MEDS: NYSTATIN POWDER 15GM BTTL TOP SCH ×4 (10:00→20:54)
[2019-03-11] MEDS: BISACODYL TAB 5 MG TAB PO SCH (13:01)
--- NOTE | 2019-03-11 13:12 | PN ---
DATE: 03/11/19 SUPERVISING PHYSICIAN: Jonathan Nichole M.D. SUBJECTIVE: The patient has just finished breakfast. He had a little bit of restlessness through the night but did well with just a very tiny dose of Xanax. He actually does not have any recall of being restless and confused through the night. He did have several bowel movements yesterday after the enema and stool softeners. I discussed with him this morning that we will remove his Adams as this seems to be irritating him. He has not had any shortness of breath, chest pains and he remains afebrile. He is in agreement that he wants to go to [facility] for rehab which we will pursue tomorrow. OBJECTIVE: VITAL SIGNS: Temperature 97.9, pulse 60, blood pressure 114/67, respirations 18, satting 97% on room air. I's and O's show a positive balance of 1610 with 4660 in, 3050 out. Weight is 102.6 kg. GENERAL: The patients is sitting in the bedside chair, just finished breakfast. Appears to be in no acute distress. He is alert. CHEST: Sounds are clear to auscultation bilaterally. HEART: Regular rate and rhythm. ABDOMEN: Obese but soft, non- tender. Positive bowel sounds. EXTREMITIES: Without any edema. NEUROLOGIC: He is alert and oriented times three. LABORATORY: Chemistries show sodium 131, potassium 3.3, chloride 97, creatinine is now normalized to 1.24. MICROBIOLOGY: No microbiology specimens. RADIOLOGY: No additional radiographic studies. ASSESSMENT: 1. Constipation versus fecal impaction likely resulting in some mechanical urinary retention from bladder outlet obstruction requiring more aggressive management with laxatives and mechanical disimpaction. Patient having good response to treatment. 2. Electrolyte imbalance with hyponatremia, hypochloremia and hypokalemia secondary to diuresis with Lasix and Zaroxolyn showing some slight improvement with fluids with the patient showing returning to baseline levels with fluids. 3. Normocytic anemia, but showing to be stable. 4. Diverticulosis without any evidence of diverticulitis. 5. Hemoccult stool positive with stable H&H likely due to constipation. 6. Diffuse weakness exacerbated by #1 showing some slight improvement with therapy and fluids. The patient does require ongoing physical therapy and would benefit from inpatient rehab. 7. Congestive heart failure of unknown etiology, likely a diastolic combined systolic, but showing to be stable with no exacerbation noted. 8. Coronary artery disease. 9. Chronic atrial fibrillation showing to have a controlled ventricular rate on chronic anticoagulation. 10. Status post pacemaker placement. 11. Chronic hypothyroidism on supplementation. 12. Chronic hypertension showing to be stable. PLAN: Will go ahead and pull his Adams today as this has just been irritating and see if this improves his need for multiple bowel movements. He has had some success with the laxatives, Milk of Magnesia and MiraLAX. Will watch his output closely and should he show that he is again retaining, will replace the Adams and he will need a followup with urology. Given that he does have CHF and his electrolytes are returning to baseline levels, will go ahead and saline lock him as he is having adequate oral intake. I did discuss with his and himself that he would benefit from aggressive inpatient rehab. They are in agreement to go into [facility]. Will plan to get a consultation in the morning and anticipate discharge possibly later tomorrow afternoon. Until then will continue to monitor and treat as needed. #[id number] [facility]ENTER[facility]mar[facility]it
[2019-03-11] MEDS: SODIUM CHLORIDE 0.9% (FLUSH) 10 ML SYG IV SCH ×2 (13:13→20:53)
[2019-03-11] MEDS ORDERED: FLUCONAZOLE 150 MG TAB PO ONE (16:57)
[2019-03-11] MEDS: TOLTERODINE TARTRATE ER 4 MG CAP PO SCH (20:39)
[2019-03-11] MEDS: ALFUZOSIN HCL 10 MG PO SCH (20:40)
[2019-03-11] MEDS: AMIODARONE HCL 200 MG TAB PO SCH (20:48)
[2019-03-11] MEDS: LEVOTHYROXINE SODIUM 0.1 MG TAB PO SCH (20:48)
[2019-03-11] MEDS: METOPROLOL SUCCINATE XL 50 MG TAB PO SCH (20:48)
[2019-03-11] MEDS: KETOCONAZOLE CREAM 15 GM TUBE TOP SCH (20:48)
[2019-03-11] MEDS: FINASTERIDE 5 MG TAB PO SCH (20:48)
[2019-03-12] MEDS: metOLazone 2.5 MG TAB PO SCH (06:24)
[2019-03-12] MEDS: BISACODYL TAB 5 MG TAB PO SCH (08:13)
[2019-03-12] MEDS: ATORVASTATIN 20 MG TAB PO SCH (08:14)
[2019-03-12] MEDS: FUROSEMIDE 40 MG TAB PO SCH (08:14)
[2019-03-12] MEDS: ASPIRIN (ENTERIC COATED) 81 MG TAB PO SCH (08:14)
[2019-03-12] MEDS: POTASSIUM CHLORIDE 20 MEQ TAB PO SCH (08:15)
[2019-03-12] MEDS: APIXABAN 2.5 MG TAB PO SCH (08:15)
[2019-03-12] MEDS: SODIUM CHLORIDE 0.9% (FLUSH) 10 ML SYG IV SCH (08:15)
[2019-03-12] MEDS: PANTOPRAZOLE SODIUM TAB 40 MG PO SCH (08:15)
[2019-03-12] MEDS: MEMANTINE 10 MG TAB PO SCH (08:15)
[2019-03-12] MEDS: MAGNESIUM HYDROXIDE 30 ML UD PO SCH (08:16)
[2019-03-12] MEDS: RIVASTIGMINE TARTRATE 4.5 MG PO SCH (08:21)
[2019-03-12] MEDS: SACUBITRIL VALSARTAN PO SCH (08:21)
[2019-03-12] MEDS: GLYCOPYRROLATE 2 MG PO SCH (08:22)
[2019-03-12] MEDS: NYSTATIN POWDER 15GM BTTL TOP SCH ×2 (08:27→14:39)
[2019-03-12] MEDS: KETOCONAZOLE CREAM 15 GM TUBE TOP SCH (09:07)
[2019-03-12] MEDS: IV SET AND CAP CHANGE INJ INJ SCH (13:41)
[2019-03-12 14:55] VITALS: BP 122/73; TEMP 97.5; O2SAT 99
--- NOTE | 2019-03-12 15:20 | PN ---
SUPERVISING PHYSICIAN: Thanh Leon MD DATE: 03/12/19 SUBJECTIVE: The patient is relaxing in his bed this morning. He notes he had a good night. He has had good response and no problems with his bladder since he has had the Adams catheter removed. He has had several more bowel movements and has no further complaints. Cherrie Goetz is here for arranged transfer to inpatient facility for rehab. OBJECTIVE: VITAL SIGNS: He remains afebrile. Temperature 96. Pulse 60. Blood pressure 120/73. Respirations 16. Saturation 98% on room air. I&Os show positive balance of 489 with 1490 in, 1001 out. Weight 103.7 kg. GENERAL: The patient is comfortable. He appears to be in no acute distress. He is alert. CHEST: Lungs clear to auscultation. HEART: Regular rate and rhythm. ABDOMEN: Soft, nontender. Positive bowel sounds. EXTREMITIES: Without any edema. NEUROLOGIC: He is alert and oriented times three. LABORATORY: No additional laboratory studies were completed. ASSESSMENT: 1. Constipation versus fecal impaction likely resulting in some mechanical urinary retention from bladder outlet obstruction requiring more aggressive management with laxatives and mechanical disimpaction. Patient having good response to treatment. 2. Electrolyte imbalance with hyponatremia, hypochloremia and hypokalemia, returning to baseline levels with chronic hyponatremia secondary to Lasix and Zaroxolyn, but stable. 3. Normocytic anemia, stable. 4. Diverticulosis without any evidence of diverticulitis. 5. Hemoccult stool positive with stable hemoglobin and hematocrit, likely due to constipation. 6. Diffuse weakness exacerbated by #1, showing some slight improvement with therapy and fluids. The patient does require ongoing physical therapy and would benefit from inpatient rehab. 7. Congestive heart failure of unknown etiology, likely a diastolic combined systolic, but stable with no exacerbation noted. 8. Coronary artery disease. 9. Chronic atrial fibrillation showing to have a controlled ventricular rate on chronic anticoagulation. 10. Status post pacemaker placement. 11. Chronic hypothyroidism on supplementation. 12. Chronic hypertension, stable. PLAN: We will continue with current plan of care today, which is physical therapy until he can be transferred to [facility]. If he does not go today, I will plan to give him another dose of Milk of Magnesia overnight to further attempt to clean out his colon and decrease his constipation as I believe this was the result of his urinary retention. He remains on an oral diet and saline locked. He is doing well with that. His is in agreement with the plan of care. As soon as we do have arrangements, we will be transferred to [facility] via their transport vehicle. Until then, we will continue to monitor and treat as needed. #[id number] MTDD
--- NOTE | 2019-03-13 19:33 | DS ---
SUPERVISING PHYSICIAN: Thanh Leon M.D. ADMISSION DIAGNOSIS: 1. Hyponatremia. 2. Hypochloremia. 3. Normocytic anemia. 4. Diverticulosis. 5. Hemoccult stool positive. 6. Diffuse weakness. 7. Constipation versus fecal impaction. 8. Unspecified congestive heart failure. 9. Coronary artery disease. 10. Chronic atrial fibrillation on anticoagulation. 11. Status post pacemaker placement. 12. Chronic hypothyroidism. 13. Chronic hypertension. DISCHARGE DIAGNOSIS: 1. Constipation versus fecal impaction likely resulting in some mechanical urinary retention from bladder outlet obstruction requiring more aggressive management with laxatives and mechanical disimpaction. Patient having good response to treatment. 2. Electrolyte imbalance with hyponatremia, hypochloremia and hypokalemia, returning to baseline levels with chronic hyponatremia secondary to Lasix and Zaroxolyn, but stable. 3. Normocytic anemia, stable. 4. Diverticulosis without any evidence of diverticulitis. 5. Hemoccult stool positive with stable hemoglobin and hematocrit, likely due to constipation. 6. Diffuse weakness exacerbated by #1, showing some slight improvement with therapy and fluids. The patient does require ongoing physical therapy and would benefit from inpatient rehab. 7. Congestive heart failure of unknown etiology, likely a diastolic combined systolic, but stable with no exacerbation noted. 8. Coronary artery disease. 9. Chronic atrial fibrillation showing to have a controlled ventricular rate on chronic anticoagulation. 10. Status post pacemaker placement. 11. Chronic hypothyroidism on supplementation. 12. Chronic hypertension, stable. REASON FOR HOSPITALIZATION: The patient is an 88-year-old gentleman who lives at home with his who was brought to the clinic early this morning with slightly decreasing mentation over a couple of weeks along with very profound increase in shortness of breath and weakness with minimal exertion. At the clinic visit, the also commented that several times over the last couple of weeks there was a minor amount of blood seen in his underwear and on his sheets while changing. Otherwise, she states he has been about the same as far as his mentation goes, but just is a little bit more quiet in social situations than normal. He was sent to the Emergency Room after that for evaluation for fecal impaction and assessment of rectal bleeding and mentation decline. In the Emergency Room, he was found to be slightly hyponatremic with a minor elevation of BUN and creatinine from his baseline. He was found to be Hemoccult positive on digital rectal examination without any savana blood appreciated. Abdominopelvic CT also noted some diverticulosis without infection. Also noted was moderate bladder distention significant for bladder outlet obstruction. The Emergency Room physician was able to catheterize the patient and retrieve 1800 mL of urine. Urinalysis was clean with no sign of infection. Hospitalist was called for potential admission for observation given the above problems. LABORATORY: White count on admission was 6,400, at discharge was 5,600. He had serial H&Hs drawn, initially was 11.0 and 32.8 respectively and it remained stable. The last one done on 03/10/19 was at 10.2 and 30.5. Platelet counts were within normal limits at 138,000. Differential showed to be without a left shift. Coagulation studies showed a PT of 15.8, PTT of 32.8. Chemistries did show hyponatremia at 124 initially on admission, the last one prior to discharge was showing to be at 131. Potassium 3.3 and carbon dioxide was normal at 26. BUN initially was 35, at discharge was 22. Initial creatinine was 1.59, at discharge was 1.24. Calciums were within normal limits at 8.8. Total bilirubin was slightly elevated at 1.4. AST was slightly elevated at 62. Urinalysis was within normal limits. He did have 1 occult blood that was positive. MICROBIOLOGY: No microbiology specimens were submitted. RADIOLOGY: He had an abdominal/pelvis CT in the E. R. prior to admission which showed cholelithiasis, complicated diverticulosis of the colon and marked distention of the urinary bladder was observed suggesting bladder outlet obstruction. He had a chest x-ray in the E. R. prior to admission and per radiology interpretation showed cardiomegaly without acute abnormalities. He had a CT of the head without contrast and per radiology interpretation showed no acute intracranial pathological processes. HOSPITAL COURSE: Mr. Farrar was admitted initially for urinary retention and concerns for possible GI bleed as he does take Eliquis. He had serial H&Hs drawn which remained stable. In the E. R. initially he had a urinary catheter placed with well over 1800 mL out. After further examination and clinical course, the patient was showing to be severely constipated with a large burden of stool in his rectum. This was relieved with enemas and stool softeners and laxatives. He did have good response to those treatments and after which his catheter was removed after bladder training. In 24 hours he had not had any signs of urinary retention. He was having some extremity weakness, significantly deconditioned, therefore consultation was secured through [facility] for inpatient rehab. On the day of discharge, he was showing to be stable with his hemoglobin and hematocrit, and having bowel movements and no urinary retention, and then was accepted to [facility] for continuation of his rehabilitation efforts. PLAN: Mr. Farrar was discharged on 03/12/19 to go as an inpatient to [facility] in [place]. He was to be transported by the facility's van. He was instructed to see Dr. Bob in 7 to 10 days or as needed and directed. He was to resume a usual diet as tolerated. Activity is as per Physical Therapy. Prescriptions provided at discharge included: 1. Dulcolax 10 mg tablet daily. 2. Ketoconazole cream twice daily to areas of rash. 3. Nystatin powder as needed. All other medications prior to hospitalization were continued. DISPOSITION: The patient was discharged to transfer to [facility] and transported by van. Discharge condition was stable and improving. #[id number] [facility]
== END 2019-03-12 17:19 ==
LOC: ER 09:59 → MS 12:33 → INTOOBSV 12:33
PROVIDERS: ADMIT Family Medicine; ATTEND Nurse Practitioner Family
DX: E87.1 Hypo-osmolality and hyponatremia (principal); E87.8 Other disorders of electrolyte and fluid balance, not elsewhere classified; E87.6 Hypokalemia; R33.8 Other retention of urine; D64.9 Anemia, unspecified; K57.30 Diverticulosis of large intestine without perforation or abscess without bleeding; K92.1 Melena; R53.1 Weakness; I11.0 Hypertensive heart disease with heart failure; I50.9 Heart failure, unspecified; I25.10 Atherosclerotic heart disease of native coronary artery without angina pectoris; I48.2 Chronic atrial fibrillation; E03.9 Hypothyroidism, unspecified; N17.9 Acute kidney failure, unspecified; K80.20 Calculus of gallbladder without cholecystitis without obstruction; Z95.0 Presence of cardiac pacemaker; Z79.01 Long term (current) use of anticoagulants; Z79.82 Long term (current) use of aspirin; Z79.899 Other long term (current) drug therapy
CPT/HCPCS: 96360; 96361 ×2; J7030 ×6; 80048 ×2; 82270; 80053; 85014 ×2; 85018 ×2; 36415 ×3; 81001; 85025 ×2; 85730; 85610; 71045; 70450; 74177; 94760 ×6; 97116 ×3; G8978; G8979; 97162; 99285; G0378

== ENCOUNTER 2019-03-29 00:34 | Inpatient (IN) | payer MEDICARE, OTHER ==
--- NOTE | 2019-03-29 00:56 | ED.PDOC ---
History of Present Illness - General Chief Complaint: Back Pain or Injury Stated Complaint: left arm pain x5 days, increasing Time Seen by Provider: 03/29/19 00:35 Source: patient, family Exam Limitations: clinical condition - dementia - History of Present Illness Initial Comments: Patient presents with left arm and shoulder pain for 5 days. The says that it has progressively gotten worse. Upon arrival, the patient denies any pain in the arm. 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 No other history is available from the patient. According to medical records, he has CAD with a ventricular pacemakers as well as extensive OA. Timing/Duration: other - 5 days Severity: moderate Improving Factors: nothing Worsening Factors: nothing Associated Symptoms: denies symptoms Allergies/Adverse Reactions: Allergies NO KNOWN ALLERGY Allergy (Verified 03/29/19 01:46) Home Medications: Ambulatory Orders Amiodarone HCl [Pacerone] 200 mg PO BEDTIME 06/24/16 Aspirin [Aspirin EC] 81 mg PO DAILY 06/24/16 Finasteride [Proscar] 5 mg PO BEDTIME 06/24/16 Furosemide [Lasix] 20 mg PO DAILY 06/24/16 Metoprolol Succinate [Metoprolol Succinate ER] 50 mg PO BEDTIME 06/24/16 Multiple Vitamins W/ Minerals [Multi For Him 50+] 1 tab PO DAILY 06/24/16 Potassium Chloride [K-Tab] 20 meq PO DAILY 06/24/16 Levothyroxine Sodium [Synthroid] 100 mcg PO BEDTIME 06/29/16 Atorvastatin Calcium [Lipitor] 20 mg PO DAILY 02/08/18 Memantine HCl [Namenda] 10 mg PO DAILY 02/08/18 Pantoprazole Tablet [Protonix] 40 mg PO DAILY 02/08/18 Rivastigmine Tartrate 4.5 mg PO DAILY 02/08/18 Apixaban [Eliquis] 2.5 mg PO BID #30 tab 02/11/18 Glycopyrrolate 2 mg PO BID 03/09/19 Meloxicam [Mobic] 7.5 mg PO DAILY 03/09/19 Metolazone 2.5 mg PO DAILY 03/09/19 Sacubitril-Valsartan [Entresto 24-26 mg] 1 tab PO BID 03/09/19 Bisacodyl [Dulcolax Tab] 10 mg PO DAILY tab 03/12/19 Ketoconazole Cream [Nizoral Cream] 1 applic TOP BID appli 03/12/19 Nystatin Powder 1 applic TOP QID appli 03/12/19 Acetaminophen [Tylenol] 650 mg PO .Q4H PRN 03/29/19 Balsam [place] Oil [Venelex] 1 oin EX BID 03/29/19 Belladonna Alkaloids & Opium [Belladonna/Opium 16.2-30 mg] 1 sup HI BID PRN 03/29/19 Bisacodyl [Dulcolax] 10 mg HI DAILY 03/29/19 Fluticasone Prop 0.05% Nasal [Flonase Nasal [place]] 100 mcg NA DAILY 03/29/19 Lidocaine 2% Gel [Xylocaine 2% GEL] 2 % TOP .Q6H PRN 03/29/19 Loratadine [Claritin] 10 mg PO DAILY 03/29/19 Modafinil [Provigil] 200 mg PO ACBK 03/29/19 Pantoprazole Tablet [Protonix] 40 mg PO ACBK 03/29/19 Polyethylene Glycol 3350 [Miralax] 17 gm PO DAILY 03/29/19 Saline [Nasal Moist] 0.65 % NA .Q3H PRN 03/29/19 Senna/Docusate Tab [Senokot-S] 2 ea PO BID 03/29/19 Senna/Docusate Tab [Senokot-S] 2 ea PO PRN 03/29/19 Simethicone 80 mg PO PRN PRN 03/29/19 Tamsulosin 0.4 mg PO BID 03/29/19 Review of Systems - Review of Systems Constitutional: States: no symptoms reported EENTM: States: no symptoms reported Respiratory: States: no symptoms reported Cardiology: States: no symptoms reported Gastrointestinal/Abdominal: States: no symptoms reported Genitourinary: States: no symptoms reported Musculoskeletal: States: see HPI Skin: States: no symptoms reported Neurological: States: no symptoms reported Endocrine: States: no symptoms reported Hematologic/Lymphatic: States: no symptoms reported Past Medical History (General) - Patient Medical History Hx Seizures: No Hx Stroke: Yes - adrian [id number] Hx Dementia: Yes Hx Asthma: No Hx of COPD: Yes Hx Congestive Heart Failure: No - fatiques easily Hx Pacemaker: Yes Hx Hypertension: Yes Hx Diabetes: No Hx MRSA: No - Social History Hx Alcohol Use: - drinks 2 scotch/night Family Medical History - Family History Father Family History: Unknown Physical Exam - Physical Exam General Appearance: Alert Eye Exam: bilateral normal Ears, Nose, Throat: normal ENT inspection Neck: non-tender, full range of motion, supple Respiratory: lungs clear, normal breath sounds Cardiovascular/Chest: normal peripheral pulses, regular rate, rhythm Gastrointestinal/Abdominal: normal bowel sounds, non tender, soft Back Exam: normal inspection, no CVA tenderness Extremity: normal range of motion, non-tender, normal inspection Neurologic: shipper/receiver II-XII nml as tested, no motor/sensory deficits, alert, normal mood/affect Skin Exam: other - decubitus ulcers on buttocks Lymphatic: no adenopathy Progress - Progress Progress: 03/29/19 01:59 Laboratory Tests 03/29/19 03/29/19 03/29/19 00:52 00:52 00:52 WBC 8.3 RBC 3.64 L Hgb 11.1 L Hct 32.7 L MCV 90.1 MCH 30.6 MCHC 34.0 RDW 15.4 H Plt Count 297 MPV 6.8 L Absolute Neuts (auto) 6.10 Absolute Lymphs (auto) 1.30 Absolute Monos (auto) 0.70 Absolute Eos (auto) 0.10 Absolute Basos (auto) 0.10 Neutrophils % 73.0 Lymphocytes % 16.1 L Monocytes % 8.3 Eosinophils % 1.3 Basophils % 1.3 PT 14.3 H INR 1.44 H PTT (SP) Sodium 120 L Potassium 3.5 L Chloride 90 L Carbon Dioxide 22 Anion Gap 11.5 L BUN 20 H Random Glucose 110 H Serum Osmolality 245.5 L* Calcium 7.8 L Magnesium 1.3 L Total Bilirubin 0.9 AST 168 H ALT 156 H Alkaline Phosphatase 118 Creatine Kinase 52 CK-MB (CK-2) 2.2 CK-MB (CK-2) % Not Reportable Troponin I < 0.02 B-Natriuretic Peptide 442.0 H* Serum Total Protein 6.7 Albumin 3.0 L Globulin 3.7 H Albumin/Globulin Ratio 0.8 L 03/29/19 00:53 WBC RBC Hgb Hct MCV MCH MCHC RDW Plt Count MPV Absolute Neuts (auto) Absolute Lymphs (auto) Absolute Monos (auto) Absolute Eos (auto) Absolute Basos (auto) Neutrophils % Lymphocytes % Monocytes % Eosinophils % Basophils % PT INR PTT (SP) 36.2 H Sodium Potassium Chloride Carbon Dioxide Anion Gap BUN Random Glucose Serum Osmolality Calcium Magnesium Total Bilirubin AST ALT Alkaline Phosphatase Creatine Kinase CK-MB (CK-2) CK-MB (CK-2) % Troponin I B-Natriuretic Peptide Serum Total Protein Albumin Globulin Albumin/Globulin Ratio CXR showed mild edematous infiltrates diffusely. wbc wnl. No fever. Unlikely to be infectious. Probably cardiogenic edema. Troponin negative. EKG showed ventricular paced rhythm. Sodium 120. Mildly elevated LFTs. Patient admitted for hyponatremia and elevated LFTs. Was given Tylenol #3 po x one in the E.D. due to the pain of the decubitus ulcers. Departure - Departure Clinical Impression: Hyponatremia, Elevated LFTs Disposition: Admit Patient Condition: Fair Departure Forms: ED Discharge - Pt. Copy, Patient Portal Self Enrollment Diet: other - as per hospitalist Activity: as per physical therapy Referrals: Brock Bob MD [Primary Care Provider] - 1-2 Weeks Home Medications: Ambulatory Orders Amiodarone HCl [Pacerone] 200 mg PO BEDTIME 06/24/16 Aspirin [Aspirin EC] 81 mg PO DAILY 06/24/16 Finasteride [Proscar] 5 mg PO BEDTIME 06/24/16 Furosemide [Lasix] 20 mg PO DAILY 06/24/16 Metoprolol Succinate [Metoprolol Succinate ER] 50 mg PO BEDTIME 06/24/16 Multiple Vitamins W/ Minerals [Multi For Him 50+] 1 tab PO DAILY 06/24/16 Potassium Chloride [K-Tab] 20 meq PO DAILY 06/24/16 Levothyroxine Sodium [Synthroid] 100 mcg PO BEDTIME 06/29/16 Atorvastatin Calcium [Lipitor] 20 mg PO DAILY 02/08/18 Memantine HCl [Namenda] 10 mg PO DAILY 02/08/18 Pantoprazole Tablet [Protonix] 40 mg PO DAILY 02/08/18 Rivastigmine Tartrate 4.5 mg PO DAILY 02/08/18 Apixaban [Eliquis] 2.5 mg PO BID #30 tab 02/11/18 Glycopyrrolate 2 mg PO BID 03/09/19 Meloxicam [Mobic] 7.5 mg PO DAILY 03/09/19 Metolazone 2.5 mg PO DAILY 03/09/19 Sacubitril-Valsartan [Entresto 24-26 mg] 1 tab PO BID 03/09/19 Bisacodyl [Dulcolax Tab] 10 mg PO DAILY tab 03/12/19 Ketoconazole Cream [Nizoral Cream] 1 applic TOP BID appli 03/12/19 Nystatin Powder 1 applic TOP QID appli 03/12/19 Acetaminophen [Tylenol] 650 mg PO .Q4H PRN 03/29/19 Balsam [place] Oil [Venelex] 1 oin EX BID 03/29/19 Belladonna Alkaloids & Opium [Belladonna/Opium 16.2-30 mg] 1 sup HI BID PRN 03/29/19 Bisacodyl [Dulcolax] 10 mg HI DAILY 03/29/19 Fluticasone Prop 0.05% Nasal [Flonase Nasal [place]] 100 mcg NA DAILY 03/29/19 Lidocaine 2% Gel [Xylocaine 2% GEL] 2 % TOP .Q6H PRN 03/29/19 Loratadine [Claritin] 10 mg PO DAILY 03/29/19 Modafinil [Provigil] 200 mg PO ACBK 03/29/19 Pantoprazole Tablet [Protonix] 40 mg PO ACBK 03/29/19 Polyethylene Glycol 3350 [Miralax] 17 gm PO DAILY 03/29/19 Saline [Nasal Moist] 0.65 % NA .Q3H PRN 03/29/19 Senna/Docusate Tab [Senokot-S] 2 ea PO BID 03/29/19 Senna/Docusate Tab [Senokot-S] 2 ea PO PRN 03/29/19 Simethicone 80 mg PO PRN PRN 03/29/19 Tamsulosin 0.4 mg PO BID 03/29/19 Critical Care Note - Critical Care Note Total Time (mins): 100
--- NOTE | 2019-03-29 01:22 | RAD ---
EXAM: XR Left Shoulder Complete, 2 or More Views CLINICAL HISTORY: The patient is 88 years old and is Male; shoulder pain TECHNIQUE: Two or more views of the left shoulder. COMPARISON: No relevant prior studies available. FINDINGS: BONES/JOINTS: Degenerative change of the acromioclavicular joint with joint space narrowing and spurring is present. The glenohumeral joint is intact. There is no acute fracture. No dislocation. SOFT TISSUES: Unremarkable. IMPRESSION: No acute findings. Electronically signed by: Stephany Sanchez MD 03/29/2019 1:20 AM CDT
--- NOTE | 2019-03-29 01:22 | RAD ---
EXAM: XR Chest, 1 View CLINICAL HISTORY: The patient is 88 years old and is Male; shoulder pain TECHNIQUE: Frontal view of the chest. COMPARISON: Chest radiograph March 09, 2019. FINDINGS: LUNGS: Mild diffuse interstitial opacities are present. There are slightly low lung volumes. PLEURAL SPACE: Unremarkable. No pneumothorax. HEART: The cardiac silhouette is enlarged. MEDIASTINUM: Unremarkable. BONES/JOINTS: Median sternotomy wires and vascular clips are present. TUBES, LINES AND DEVICES: Left-sided pacemaker is present. IMPRESSION: Cardiomegaly with findings suggestive of mild edematous, infectious, or inflammatory process. No lobar consolidation. Electronically signed by: Stephany Sanchez MD 03/29/2019 1:20 AM CDT
[2019-03-29] MEDS ORDERED: SODIUM CHLORIDE 0.9% 1000ML 1,000 ML IVS PRN (01:57)
[2019-03-29] MEDS ORDERED: ACETAMINOPHEN W/COD #3 TAB 1 EA TAB PO ONE (01:57)
[2019-03-29] MEDS ORDERED: NITROGLYCERIN 0.4 MG 25 EA TAB SL PRN (02:02)
[2019-03-29] MEDS ORDERED: SODIUM CHLORIDE 0.9% (FLUSH) 10 ML SYG IV PRN (02:02)
[2019-03-29] MEDS ORDERED: MAGNESIUM SULFATE PREMIX 2GM 2 GM in PREMIX BAG 1 BAG IVPB ONE ×2 (02:07→19:53)
--- NOTE | 2019-03-29 02:11 | HP ---
SUPERVISING PHYSICIAN: Ranjan Chau M.D. CHIEF COMPLAINT: Left arm pain. HISTORY OF PRESENT ILLNESS: Mr. Farrar is an 88 year-old male patient who presented to the Emergency Room earlier this morning for left arm and shoulder pain. The noted that the pain has worsened. He also has chronic pain from decubitus ulcers on his buttocks. He just got out of [facility] this past Tuesday and his reports that he has not been able to sleep or get any position in comfort due to the pain associated with his decubitus on his buttocks. She also notes that he is severely declining in his strength since discharge. Laboratory studies in the E. R. showed he had hyponatremia with sodium 120, osmolality was 245, magnesium 1.3, creatinine 1.17. BNP was elevated at 442. Troponin on initial presentation was less than 0.02 and 6 hours post admission was 0.02. X-ray of his left shoulder showed no acute findings. He had a chest x-ray as well and per radiology interpretation showed cardiomegaly with findings suggestive of mild edematous, infectious or inflammatory process but no lobar consolidation. Given his advanced age, decline in his strength and significant hyponatremia, the patient is going to be admitted now for further treatment and evaluation. He was admitted in stable condition. PAST MEDICAL HISTORY: 1. Congestive heart failure of unknown type. 2. Coronary artery disease. 3. Chronic atrial fibrillation on anticoagulation. 4. Status post pacemaker placement. 5. Hypothyroidism. PAST SURGICAL HISTORY: 1. Pacemaker placement. 2. Right knee arthroplasty. 3. Appendectomy. HOME MEDICATIONS: 1. Flomax 0.4 mg b.i.d. 2. Simethicone 80 mg p.r.n. 3. Senokot S 2 tablets b.i.d. as needed. 4. Entresto 24-26 mg 1 tablet b.i.d. 5. Rivastigmine tartrate 20 mg daily. 6. Potassium chloride 20 mEq daily. 7. MiraLAX 17 grams daily. 8. Protonix 40 mg b.i.d. 9. Nystatin powder as needed topically. 10. Multivitamin 1 tablet daily. 11. Metoprolol succinate 50 mg at bedtime. 12. Metolazone 2.5 mg daily. 13. Namenda 10 mg daily. 14. Meloxicam 7.5 mg daily. 15. Claritin 10 mg daily. 16. Lidocaine gel topically 2% as needed. 17. Synthroid 100 mcg daily. 18. Ketoconazole cream 1 application topically as needed b.i.d. 19. Glycopyrrolate 2 mg b.i.d. 20. Lasix 20 mg daily. 21. Flonase 100 mcg daily. 22. Proscar 5 mg at bedtime. 23. Dulcolax 10 mg daily and as needed. 24. Belladonna/Opium 16.2-30 mg 1 suppository b.i.d. 25. Venelex externally b.i.d. 26. Lipitor 20 mg daily. 27. Aspirin 81 mg daily. 28. Eliquis 2.5 mg b.i.d. 29. Pacerone 200 mg at bedtime. 30. Tylenol 650 mg every 4 hours as needed. ALLERGIES: NO KNOWN DRUG ALLERGIES. FAMILY HISTORY: Noncontributory. SOCIAL HISTORY: The patient denies any illicit drug use or tobacco. He does drink scotch and club soda a couple of times a week. He is retired from the [employer]. Lives in [place] with his . REVIEW OF SYSTEMS: CONSTITUTIONAL: Noted for general malaise, increasing weakness. Denies any fever or chills. Weight loss of almost 20 pounds in the last 2 weeks. HEENT: Negative for any sore throat, ear aches, nasal congestion, vision changes. RESPIRATORY: Negative for coughing, shortness of breath, wheezing. CARDIOVASCULAR: Negative for chest pains, palpitations, tachycardia. GASTROINTESTINAL: Negative for nausea, vomiting, diarrhea, abdominal pains or constipation. GENITOURINARY: Denies any dysuria, hematuria or polyuria, but does have a Adams catheter in place. MUSCULOSKELETAL: As noted in history of present illness, increasing weakness. SKIN: Positive for decubitus to coccyx area as noted in History of Present Illness. PHYSICAL EXAMINATION: VITAL SIGNS: Temperature 98.7, pulse 89, blood pressure 134/78, respirations 18, satting 96% on room air. Admission weight 95.3 kg, that is down from 17 days previously when he weighed 103.7 kg. GENERAL: The patient is alert, resting comfortably. Appears to be in no acute distress. HEENT: Tympanic membranes are clear bilaterally. Oropharynx is pink and moist without any lesions. NECK: Supple, non-tender. Full range of motion. CHEST: Lungs are clear to auscultation, just diminished towards the bases. CARDIOVASCULAR: Regular rate and rhythm with no appreciable murmurs, gallops, or rubs. ABDOMEN: Obese but soft, non-tender. Positive bowel sounds. BACK: Atraumatic with normal inspection, but no CVA tenderness. EXTREMITIES: No clubbing, cyanosis or edema. NEUROLOGIC: Cranial nerves II-XII are grossly intact. He was alert and oriented to date of , but not current date, time or place. SKIN: Stage 2 decubitus to the coccyx area extending with a stage 1 bilaterally to both buttocks with some green drainage noted in the coccyx area. No other lesions or rashes are noted. LABORATORY: White count 8,300, hemoglobin 11.1, hematocrit 32.7, platelet count 297,000. Differential showed to be without a left shift. Coagulation studies showed a PT 14.3, INR 1.44, PTT 36.2, however the patient is on Eliquis. Urinalysis is pending. Chemistries showed sodium 120, potassium 3.5, chloride 90, anion gap 11.5, BUN 20, creatinine 1.17, glucose 110, serum osmolality 245, calcium 7.8, magnesium 1.3. Liver functions showed elevation in AST at 168, ALT of 156. Bilirubin was normal at 0.9. He had 2 sets of troponin at less than 0.02. Normal CK levels at 52 and 56 respectively with BNP elevated at 442. MICROBIOLOGY: Wound culture of the decubitus is pending. RADIOLOGY: X-ray of left shoulder was without any acute findings per radiology interpretation. Chest x-ray showed cardiomegaly with findings suggestive of mild edematous, infectious or inflammatory process but no lobar consolidation per radiology interpretation. 12-lead EKG shows 100% paced rhythm. ASSESSMENT: 1. Severe hyponatremia possibly related to excessive water intake. 2. Congestive heart failure, uncertain etiology, with no echocardiogram available for review with some exacerbation noted with elevated BNP on admission. 3. Stage 2 and stage 1 decubitus to coccyx area buttocks. 4. Urinary infection with long-term indwelling Adams catheter placed prior to hospital admission; cultures pending. 5. Normocytic anemia, chronic. 6. Chronic diverticulosis without any signs or symptoms of diverticulitis. 7. History of coronary artery disease. 8. History of chronic atrial fibrillation on anticoagulation with Eliquis, but currently with a pacemaker with rhythm showing 100% paced. 9. Chronic hypothyroidism. 10. Chronic hypertension. PLAN: Mr. Farrar is going to be admitted for treatment of his hyponatremia. At this point it is unsure if he actually is just suffering from some mild water intoxication or is developing some SIADH. Will go ahead and check a sodium level of the urine. Will put him on normal saline at 75 an hour. Will continue Lasix at 20 mg IV b.i.d. In regards to his congestive heart failure, again with treat with Lasix diuretics and fluid restriction. He will be on DVT prophylaxis per protocol. He is already on Eliquis. Will resume his home medications as appropriate once those have been updated and verified. Will get a physical therapy consultation in the morning. In regards to the decubitus, will do ahead and do wound management and utilize Medihoney at least twice a day with wound care. Instruct nurses to keep the patient rotated every 2 hours to be off his backside throughout. Cultures were collected from the decubitus as well as urine. Will await those results of the decubitus to further target antibiotic therapy. Until then will go ahead and keep him on antibiotics with Rocephin and vancomycin given the patient's age and location of decubitus. Will anticipate his length of stay to be 2 to 3 days. Until he can transition back to outpatient management will continue to monitor and treat as needed. #[id number] [facility]
[2019-03-29] MEDS ORDERED: MAGNESIUM SULFATE PREMIX 2GM 50 ML IVPB ONE ×2 (02:30→20:04)
[2019-03-29] MEDS: KCL 20 MEQ/NS 1,000 ML IVS PRN ×2 (02:36→17:10)
[2019-03-29] MEDS: IV SET AND CAP CHANGE INJ INJ SCH (02:37)
[2019-03-29] MEDS: FUROSEMIDE INJ 20 MG/2 ML VIAL IV SCH ×2 (06:00→17:10)
[2019-03-29] MEDS: ACETAMINOPHEN 325 MG TAB PO PRN (06:49)
[2019-03-29] MEDS: traMADol HCL 50 MG TAB PO PRN (07:37)
[2019-03-29] MEDS: POTASSIUM CHLORIDE 20 MEQ TAB PO SCH ×2 (07:37→17:10)
[2019-03-29] MEDS: SODIUM CHLORIDE 0.9% (FLUSH) 10 ML SYG IV SCH ×2 (08:43→20:37)
[2019-03-29] MEDS ORDERED: MORPHINE SULFATE INJ 10 MG/ML VIAL IV PRN (11:02)
[2019-03-29] MEDS ORDERED: MORPHINE SULFATE INJ 10 MG/ML VIAL IV ONE (11:02)
[2019-03-29] MEDS ORDERED: MELOXICAM 7.5 MG TAB ONE (11:13)
[2019-03-29] MEDS ORDERED: cefTRIAXone SODIUM 1 GM VIAL ONE (11:14)
[2019-03-29] MEDS ORDERED: SODIUM CHL 0.9% 50ML MIN-BAG+ 50 ML IVPB ONE (11:14)
[2019-03-29] MEDS: MELOXICAM 7.5 MG TAB PO SCH (11:16)
[2019-03-29] MEDS: cefTRIAXone SODIUM 1 GM in SODIUM CHL 0.9% 50ML MIN-BAG+ 50 ML IVPB SCH (11:20)
[2019-03-29] MEDS ORDERED: VANCOMYCIN PER PHARMACY INJ SCH (11:30)
[2019-03-29] MEDS ORDERED: VANCOMYCIN HCL INJ 500 MG VIAL ONE (11:36)
[2019-03-29] MEDS ORDERED: VANCOMYCIN HCL INJ 1,000 MG VIAL IVPB ONE (11:36)
[2019-03-29] MEDS ORDERED: SODIUM CHLORIDE 0.9% 250ML 250 ML ONE (11:36)
[2019-03-29] MEDS: VANCOMYCIN HCL INJ 1,000 MG, VANCOMYCIN HCL INJ 500 MG in SODIUM CHLORIDE 0.9% 250ML 25... IVPB SCH (12:06)
[2019-03-29] MEDS ORDERED: PANTOPRAZOLE SODIUM TAB 40 MG PO ONE (19:45)
[2019-03-29] MEDS: SACUBITRIL VALSARTAN PO SCH (20:36)
[2019-03-29] MEDS: METOPROLOL SUCCINATE XL 50 MG TAB PO SCH (20:37)
[2019-03-29] MEDS: AMIODARONE HCL 200 MG TAB PO SCH (20:37)
[2019-03-29] MEDS: FINASTERIDE 5 MG TAB PO SCH (20:37)
[2019-03-29] MEDS: APIXABAN 2.5 MG TAB PO SCH (20:37)
[2019-03-29] MEDS: TAMSULOSIN 0.4 MG CAP PO SCH (20:37)
[2019-03-29] MEDS: LEVOTHYROXINE SODIUM 0.1 MG TAB PO SCH (20:39)
[2019-03-30] MEDS: FUROSEMIDE INJ 20 MG/2 ML VIAL IV SCH ×2 (06:29→17:52)
[2019-03-30] MEDS: PANTOPRAZOLE SODIUM TAB 40 MG PO SCH (06:30)
[2019-03-30] MEDS ORDERED: MODAFINIL 200 MG PO SCH (07:00)
[2019-03-30] MEDS: POTASSIUM CHLORIDE 20 MEQ TAB PO SCH (07:48)
[2019-03-30] MEDS: POLYETHYLENE GLYCOL 3350 17 GM PCKT PO SCH (08:57)
[2019-03-30] MEDS: MULTIPLE VITAMINS W/ MINERALS 1 EA TAB PO SCH (08:58)
[2019-03-30] MEDS: MEMANTINE 10 MG TAB PO SCH (08:58)
[2019-03-30] MEDS: APIXABAN 2.5 MG TAB PO SCH ×2 (08:58→20:30)
[2019-03-30] MEDS: TAMSULOSIN 0.4 MG CAP PO SCH ×2 (08:58→20:30)
[2019-03-30] MEDS: LORATADINE 10 MG TAB PO SCH (08:58)
[2019-03-30] MEDS ORDERED: PANTOPRAZOLE SODIUM TAB 40 MG PO SCH (09:00)
[2019-03-30] MEDS ORDERED: POTASSIUM CHLORIDE 20 MEQ TAB PO SCH (09:00)
[2019-03-30] MEDS: BISACODYL TAB 5 MG TAB PO SCH (09:02)
[2019-03-30] MEDS: ASPIRIN (ENTERIC COATED) 81 MG TAB PO SCH (09:03)
[2019-03-30] MEDS: FLUTICASONE PROP 0.05% NASAL 16 GM BTTL BNAS SCH (09:03)
[2019-03-30] MEDS: MELOXICAM 7.5 MG TAB PO SCH (09:03)
[2019-03-30] MEDS: SODIUM CHLORIDE 0.9% (FLUSH) 10 ML SYG IV SCH ×2 (09:03→20:31)
[2019-03-30] MEDS: SACUBITRIL VALSARTAN PO SCH ×2 (09:04→20:29)
[2019-03-30] MEDS: RIVASTIGMINE TARTRATE 4.5 MG PO SCH (09:04)
[2019-03-30] MEDS: KCL 20 MEQ/NS 1,000 ML IVS PRN (09:59)
[2019-03-30] MEDS ORDERED: cefTRIAXone SODIUM 1 GM VIAL ONE (12:35)
[2019-03-30] MEDS ORDERED: SODIUM CHL 0.9% 50ML MIN-BAG+ 50 ML IVPB ONE (12:35)
[2019-03-30] MEDS: cefTRIAXone SODIUM 1 GM in SODIUM CHL 0.9% 50ML MIN-BAG+ 50 ML IVPB SCH (12:41)
[2019-03-30] MEDS ORDERED: SODIUM CHLORIDE 0.9% 250ML 250 ML ONE (13:19)
[2019-03-30] MEDS ORDERED: VANCOMYCIN HCL INJ 500 MG VIAL ONE (13:19)
[2019-03-30] MEDS ORDERED: VANCOMYCIN HCL INJ 1,000 MG VIAL IVPB ONE (13:19)
[2019-03-30] MEDS: VANCOMYCIN HCL INJ 1,000 MG, VANCOMYCIN HCL INJ 500 MG in SODIUM CHLORIDE 0.9% 250ML 25... IVPB SCH (13:21)
[2019-03-30] MEDS: traMADol HCL 50 MG TAB PO PRN (20:29)
[2019-03-30] MEDS: FINASTERIDE 5 MG TAB PO SCH (20:29)
[2019-03-30] MEDS: LEVOTHYROXINE SODIUM 0.1 MG TAB PO SCH (20:30)
[2019-03-30] MEDS: AMIODARONE HCL 200 MG TAB PO SCH (20:30)
[2019-03-30] MEDS: METOPROLOL SUCCINATE XL 50 MG TAB PO SCH (20:30)
--- NOTE | 2019-03-30 22:35 | PN ---
DATE: 03/30/19 SUPERVISING PHYSICIAN: Ranjan Chau M.D. SUBJECTIVE: The patient actually is out of bed today. He looks much better. He is still having quite a bit of pain in his coccyx area from the decubitus. He has been afebrile. He has had no further complaints. OBJECTIVE: VITAL SIGNS: Temperature 91, pulse 59, blood pressure 108/64, respirations 16, satting 98% on room air. I's and O's show a negative balance of 2070 with 2780 in, 4850 out. Weight 92.9 kg which is down from 95.3 on admission. GENERAL: The patient is resting comfortably in the bedside chair. He is alert. Appears to be in no acute distress. CHEST: Lung sounds are much improved today with increased aeration to both lungs, especially to the bases. No rhonchi or wheezing. HEART: Regular rate and rhythm. ABDOMEN: Obese but soft, non-tender. Positive bowel sounds. EXTREMITIES: Show to be without any edema. NEUROLOGIC: He is alert and oriented times three. LABORATORY: Chemistries show improving sodium, it is up to 127 this morning. Potassium 4.1, creatinine 1.11, magnesium is up to 1.8 from admission of 1.3. MICROBIOLOGY: Urine culture is pending. Decubitus wound culture is pending. RADIOLOGY: No additional radiographic studies today. ASSESSMENT: 1. Severe hyponatremia likely related to excessive water intake, improving with fluid restrictions and general diuresis. 2. Congestive heart failure, uncertain etiology, with no echocardiogram available for review with some exacerbation noted with elevated BNP on admission with the patient showing to be stable. 3. Stage 2 and stage 1 decubitus to coccyx area buttocks with the patient showing improvement with wound management with Medihoney. 4. Urinary infection with long-term indwelling Adams catheter placed prior to hospital admission; cultures pending. 5. Normocytic anemia, chronic. 6. Chronic diverticulosis without any signs or symptoms of diverticulitis. 7. History of coronary artery disease. 8. History of chronic atrial fibrillation on anticoagulation with Eliquis, but currently with a pacemaker with rhythm showing 100% paced. 9. Chronic hypothyroidism. 10. Chronic hypertension. PLAN: Will continue current plan of care at this point with antibiotic coverage with Rocephin and vancomycin. His sodium is responding well to treatment. Will continue with IV fluids and then saline lock him later this afternoon. Plan to restart his medications in the morning, including the Zaroxolyn and follow his labs closely. Will continue with wound management with Barbara and ensure that he is off of his coccyx as much as possible. Will await wound and urine cultures. He is in the process of being accepted to [facility] which should be ready to go by Tuesday. I did discuss plan of care with the patient and the patient's who are both in agreement. Until he can transition back to outpatient management will continue to monitor and treat as needed. #[id number] MTDD
[2019-03-31] MEDS: PANTOPRAZOLE SODIUM TAB 40 MG PO SCH (06:15)
[2019-03-31] MEDS: ASPIRIN (ENTERIC COATED) 81 MG TAB PO SCH (09:18)
[2019-03-31] MEDS: MULTIPLE VITAMINS W/ MINERALS 1 EA TAB PO SCH (09:18)
[2019-03-31] MEDS: MEMANTINE 10 MG TAB PO SCH (09:18)
[2019-03-31] MEDS: LORATADINE 10 MG TAB PO SCH (09:18)
[2019-03-31] MEDS: POLYETHYLENE GLYCOL 3350 17 GM PCKT PO SCH (09:18)
[2019-03-31] MEDS: traMADol HCL 50 MG TAB PO PRN ×3 (09:18→21:55)
[2019-03-31] MEDS: TAMSULOSIN 0.4 MG CAP PO SCH ×2 (09:18→20:42)
[2019-03-31] MEDS: metOLazone 2.5 MG TAB PO SCH (09:18)
[2019-03-31] MEDS: FLUTICASONE PROP 0.05% NASAL 16 GM BTTL BNAS SCH (09:19)
[2019-03-31] MEDS: BISACODYL TAB 5 MG TAB PO SCH (09:19)
[2019-03-31] MEDS: FUROSEMIDE 40 MG TAB PO SCH (09:20)
[2019-03-31] MEDS: POTASSIUM CHLORIDE 20 MEQ TAB PO SCH (09:20)
[2019-03-31] MEDS: RIVASTIGMINE TARTRATE 4.5 MG PO SCH (09:21)
[2019-03-31] MEDS: SACUBITRIL VALSARTAN PO SCH ×2 (09:21→20:42)
[2019-03-31] MEDS: MELOXICAM 7.5 MG TAB PO SCH (09:30)
[2019-03-31] MEDS: APIXABAN 2.5 MG TAB PO SCH ×2 (09:31→20:42)
[2019-03-31] MEDS: SODIUM CHLORIDE 0.9% (FLUSH) 10 ML SYG IV SCH ×2 (09:31→20:42)
[2019-03-31] MEDS ORDERED: cefTRIAXone SODIUM 1 GM VIAL ONE (11:12)
[2019-03-31] MEDS ORDERED: SODIUM CHL 0.9% 50ML MIN-BAG+ 50 ML IVPB ONE (11:12)
[2019-03-31] MEDS: cefTRIAXone SODIUM 1 GM in SODIUM CHL 0.9% 50ML MIN-BAG+ 50 ML IVPB SCH (11:32)
[2019-03-31] MEDS ORDERED: VANCOMYCIN HCL INJ 500 MG VIAL ONE (11:53)
[2019-03-31] MEDS ORDERED: VANCOMYCIN HCL INJ 1,000 MG VIAL IVPB ONE (11:54)
[2019-03-31] MEDS ORDERED: SODIUM CHLORIDE 0.9% 250ML 250 ML ONE (11:54)
[2019-03-31] MEDS: VANCOMYCIN HCL INJ 1,000 MG, VANCOMYCIN HCL INJ 500 MG in SODIUM CHLORIDE 0.9% 250ML 25... IVPB SCH (12:02)
--- NOTE | 2019-03-31 19:40 | PN ---
DATE: 03/31/19 SUPERVISING PHYSICIAN: Ranjan Chau M.D. SUBJECTIVE: The patient actually is feeling fairly well today. He does note that his rear end is still hurting and I have offered him some pain medicine other than Tramadol, but he is having a birthday constitution party so he wanted to hold off on any additional pain medications until after that point. He has been saline locked and he is having adequate intake, and has no further complaints. He has not had any diarrhea, constipation, shortness of breath or chest pains. OBJECTIVE: VITAL SIGNS: Temperature 98.3, pulse 86, blood pressure 111/69, respirations 16, satting 96% on room air. I's and O's show a negative balance of -1220 with 2230 in and 3550 out. Weight is 91.5 kg. GENERAL: The patient appears to be comfortable with no acute distress. He is alert. CHEST: Lung sounds are clear today bilaterally without any rhonchi, wheezing or rales. HEART: Regular rate and rhythm. ABDOMEN: Obese but soft, non-tender. Positive bowel sounds. EXTREMITIES: Without any edema. NEUROLOGIC: He is alert and oriented times three. LABORATORY STUDIES: Chemistries show still improving sodium but hyponatremic at 128 compared to admission of 120. Potassium is normalized at 3.7. All other electrolytes remain in normal limits. BUN 18, creatinine 1.08. MICROBIOLOGY: Urine culture is pending. Wound culture showed a Staph species but is still pending for final sensitivity and identification. RADIOLOGY: No additional radiographic studies today. ASSESSMENT: 1. Severe hyponatremia likely related to excessive water intake, improving with fluid restrictions and general diuresis. 2. Congestive heart failure, uncertain etiology, with no echocardiogram available for review with some exacerbation noted with elevated BNP on admission with the patient showing to be stable. 3. Stage 2 and stage 1 decubitus to coccyx area buttocks with the patient showing improvement with wound management with Medihoney. 4. Urinary infection with long-term indwelling Adams catheter placed prior to hospital admission; cultures pending. 5. Normocytic anemia, chronic. 6. Chronic diverticulosis without any signs or symptoms of diverticulitis. 7. History of coronary artery disease. 8. History of chronic atrial fibrillation on anticoagulation with Eliquis, but currently with a pacemaker with rhythm showing 100% paced. 9. Chronic hypothyroidism. 10. Chronic hypertension. PLAN: I have saline locked him now for 24 hours. He is on his regular medications including his Lasix and his Zaroxolyn and potassium. Will continue with Rocephin and vancomycin until we get final culture back which we should tomorrow or Tuesday. I will recheck a UA in the AM and if still indicating bacteria or WBCs will have his Adams catheter exchanged. I have encouraged him to get up to the chair as much as possible and when he is in bed that he needs to be off of his rear end to prevent any worsening of his decubitus on his buttocks and coccyx area. Again, he has been accepted to [facility] which he should be able to discharge by Tuesday. Until then will continue to monitor and treat as needed. #[id number] MTDD
[2019-03-31] MEDS: FINASTERIDE 5 MG TAB PO SCH (20:42)
[2019-03-31] MEDS: METOPROLOL SUCCINATE XL 50 MG TAB PO SCH (20:42)
[2019-03-31] MEDS: LEVOTHYROXINE SODIUM 0.1 MG TAB PO SCH (20:42)
[2019-03-31] MEDS: AMIODARONE HCL 200 MG TAB PO SCH (20:42)
[2019-03-31] MEDS: ACETAMINOPHEN 325 MG TAB PO PRN (23:57)
[2019-04-01] MEDS: IV SET AND CAP CHANGE INJ INJ SCH (02:26)
[2019-04-01] MEDS: traMADol HCL 50 MG TAB PO PRN (04:15)
[2019-04-01] MEDS: PANTOPRAZOLE SODIUM TAB 40 MG PO SCH (06:05)
[2019-04-01] MEDS: metOLazone 2.5 MG TAB PO SCH (08:58)
[2019-04-01] MEDS: POLYETHYLENE GLYCOL 3350 17 GM PCKT PO SCH (09:59)
[2019-04-01] MEDS: POTASSIUM CHLORIDE 20 MEQ TAB PO SCH (10:00)
[2019-04-01] MEDS: ASPIRIN (ENTERIC COATED) 81 MG TAB PO SCH (10:00)
[2019-04-01] MEDS: MELOXICAM 7.5 MG TAB PO SCH (10:00)
[2019-04-01] MEDS: TAMSULOSIN 0.4 MG CAP PO SCH ×2 (10:00→20:04)
[2019-04-01] MEDS: MULTIPLE VITAMINS W/ MINERALS 1 EA TAB PO SCH (10:00)
[2019-04-01] MEDS: BISACODYL TAB 5 MG TAB PO SCH (10:00)
[2019-04-01] MEDS: MEMANTINE 10 MG TAB PO SCH (10:01)
[2019-04-01] MEDS: FUROSEMIDE 40 MG TAB PO SCH (10:01)
[2019-04-01] MEDS: LORATADINE 10 MG TAB PO SCH (10:01)
[2019-04-01] MEDS: SODIUM CHLORIDE 0.9% (FLUSH) 10 ML SYG IV SCH ×2 (10:03→20:04)
[2019-04-01] MEDS: FLUTICASONE PROP 0.05% NASAL 16 GM BTTL BNAS SCH (10:08)
[2019-04-01] MEDS: RIVASTIGMINE TARTRATE 4.5 MG PO SCH (10:10)
[2019-04-01] MEDS: APIXABAN 2.5 MG TAB PO SCH ×2 (10:10→20:04)
[2019-04-01] MEDS: SACUBITRIL VALSARTAN PO SCH ×2 (10:11→20:04)
[2019-04-01] MEDS ORDERED: VANCOMYCIN HCL INJ 500 MG VIAL ONE (12:29)
[2019-04-01] MEDS ORDERED: SODIUM CHLORIDE 0.9% 250ML 250 ML ONE (12:29)
[2019-04-01] MEDS ORDERED: SODIUM CHL 0.9% 50ML MIN-BAG+ 50 ML IVPB ONE (12:29)
[2019-04-01] MEDS ORDERED: cefTRIAXone SODIUM 1 GM VIAL ONE (12:29)
[2019-04-01] MEDS ORDERED: VANCOMYCIN HCL INJ 1,000 MG VIAL IVPB ONE (12:30)
[2019-04-01] MEDS: VANCOMYCIN HCL INJ 1,000 MG, VANCOMYCIN HCL INJ 500 MG in SODIUM CHLORIDE 0.9% 250ML 25... IVPB SCH (12:32)
[2019-04-01] MEDS: cefTRIAXone SODIUM 1 GM in SODIUM CHL 0.9% 50ML MIN-BAG+ 50 ML IVPB SCH (12:32)
--- NOTE | 2019-04-01 12:59 | PN ---
DATE: 04/01/19 SUPERVISING PHYSICIAN: Ranjan Chau M.D. SUBJECTIVE: The patient notes that he is feeling much better today. He was able to actually celebrate his birthday yesterday and had numerous guests throughout the day. He reports that he is sleeping better now. He has had no chest pains, shortness of breath, diarrhea or constipation issues. He does continue to have some pain associated with the decubitus, but notes that it is improving a little bit. OBJECTIVE: VITAL SIGNS: Temperature 97.7, pulse 91, blood pressure 106/70, respirations 16, satting 97% on room air. I's and O's show a negative balance of 650 with 1100 in, 1750 out. Weight is 91.2 kg. GENERAL: The patient is eating breakfast. Appears to be in no acute distress. He is alert. CHEST: Lung sounds were clear throughout bilaterally. HEART: Regular rate and rhythm. ABDOMEN: Obese but soft. EXTREMITIES: Without any edema. NEUROLOGIC: He is alert and oriented times three. LABORATORY: Chemistries today show a stable sodium although on the low end but improved from admission from 120 to 128. BUN 19, creatinine 0.96, calcium 8.6. Repeat urine today showed no bacteria. No epithelial cells. No WBCs. No RBCs. The dipstick was all negative. MICROBIOLOGY: Urine culture is pending. Final culture of wound for sensitivity is pending showing a Staph species awaiting final culture results. ASSESSMENT: 1. Severe hyponatremia likely related to excessive water intake, improving with fluid restrictions and general diuresis. Patient showing good response to his normal medications and diuretics. 2. Congestive heart failure, uncertain etiology, with no echocardiogram available for review with some exacerbation noted with elevated BNP on admission with the patient showing to be stable. 3. Stage 2 and stage 1 decubitus to coccyx area buttocks with the patient showing improvement with wound management with Medihoney. 4. Urinary infection with repeat urinalysis showing urine to be clean. Possibly initial sample was contaminated from collection from urinary bag, but will continue with antibiotic coverage. 5. Normocytic anemia, chronic. 6. Chronic diverticulosis without any signs or symptoms of diverticulitis. 7. History of coronary artery disease. 8. History of chronic atrial fibrillation on anticoagulation with Eliquis, but currently with a pacemaker with rhythm showing 100% paced. 9. Chronic hypothyroidism. 10. Chronic hypertension. PLAN: Will continue with current plan of care with vancomycin and Rocephin, awaiting final culture results. I did get a urine on him that is clean. I do not see any reason to exchange his Adams. I think the specimen initially was collected from the bag, but those cultures are still pending. There is a wound culture from the decubitus that is pending which did show Staph aureus, I believe, but I do not have the sensitivity completed on that yet. Once those come back certainly we can deescalate his antibiotic coverage. He is continuing to go from bed to chair. He is having some good results of healing of the decubitus with Medihoney and staying off the rear as much as possible, and rotating the patient in the bed every 2 hours when he is lying down. He has been accepted to [facility]. The is aware of the current plan of care and anticipating that he will discharge to [facility] in the morning. Until then will continue to monitor and treat as needed. #[id number] [facility]
[2019-04-01] MEDS: MAGNESIUM HYDROXIDE 30 ML UD PO SCH ×2 (20:00→23:08)
[2019-04-01] MEDS: FINASTERIDE 5 MG TAB PO SCH (20:04)
[2019-04-01] MEDS: METOPROLOL SUCCINATE XL 50 MG TAB PO SCH (20:04)
[2019-04-01] MEDS: AMIODARONE HCL 200 MG TAB PO SCH (20:04)
[2019-04-01] MEDS: LEVOTHYROXINE SODIUM 0.1 MG TAB PO SCH (20:04)
[2019-04-02 06:30] VITALS: BP 101/69; TEMP 97.8; O2SAT 99
[2019-04-02] MEDS: PANTOPRAZOLE SODIUM TAB 40 MG PO SCH (07:08)
[2019-04-02] MEDS: metOLazone 2.5 MG TAB PO SCH (08:25)
[2019-04-02] MEDS: LORATADINE 10 MG TAB PO SCH (08:49)
[2019-04-02] MEDS: ASPIRIN (ENTERIC COATED) 81 MG TAB PO SCH (08:49)
[2019-04-02] MEDS: BISACODYL TAB 5 MG TAB PO SCH (08:49)
[2019-04-02] MEDS: FUROSEMIDE 40 MG TAB PO SCH (08:50)
[2019-04-02] MEDS: APIXABAN 2.5 MG TAB PO SCH (08:50)
[2019-04-02] MEDS: TAMSULOSIN 0.4 MG CAP PO SCH (08:51)
[2019-04-02] MEDS: POTASSIUM CHLORIDE 20 MEQ TAB PO SCH (08:52)
[2019-04-02] MEDS: FLUTICASONE PROP 0.05% NASAL 16 GM BTTL BNAS SCH (08:52)
[2019-04-02] MEDS: POLYETHYLENE GLYCOL 3350 17 GM PCKT PO SCH (09:15)
[2019-04-02] MEDS: MELOXICAM 7.5 MG TAB PO SCH (09:15)
[2019-04-02] MEDS: MULTIPLE VITAMINS W/ MINERALS 1 EA TAB PO SCH (09:18)
[2019-04-02] MEDS: SACUBITRIL VALSARTAN PO SCH (09:19)
[2019-04-02] MEDS: MEMANTINE 10 MG TAB PO SCH (09:19)
[2019-04-02] MEDS: RIVASTIGMINE TARTRATE 4.5 MG PO SCH (09:19)
--- NOTE | 2019-04-05 21:04 | DS ---
SUPERVISING PHYSICIAN: Thanh Leon M.D. DISCHARGE DIAGNOSIS: 1. Severe hyponatremia likely related to excessive water intake, improving with fluid restrictions and general diuresis. Patient showing good response to his normal medications and diuretics. 2. Congestive heart failure, uncertain etiology, with no echocardiogram available for review with some exacerbation noted with elevated BNP on admission with the patient showing to be stable. 3. Stage 2 and stage 1 decubitus to coccyx area buttocks with the patient showing improvement with wound management with Medihoney. 4. Urinary infection with repeat urinalysis showing urine to be clean. Possibly initial sample was contaminated from collection from urinary bag, but will continue with antibiotic coverage. 5. Normocytic anemia, chronic. 6. Chronic diverticulosis without any signs or symptoms of diverticulitis. 7. History of coronary artery disease. 8. History of chronic atrial fibrillation on anticoagulation with Eliquis, but currently with a pacemaker with rhythm showing 100% paced. 9. Chronic hypothyroidism. 10. Chronic hypertension. HISTORY OF PRESENT ILLNESS: This is an 89 year-old male patient came to the Emergency Room on the morning of admission for left arm and shoulder pain. His noted that his pain has worsened over the last 2 days. He also has chronic pain from his decubitus ulcer on his buttocks. He just got out of [facility] the prior Tuesday. His said that he has not been able to sleep or get into any position of comfort due to the pain associated with his decubitus on his buttocks. He has been severely declining in his strength since discharge. His initial vital signs showed temperature 96.5, heart rate 93, blood pressure 157/93, respiratory rate 20, O2 sat 94% on room air. Laboratory studies showed hyponatremia with sodium 120, osmolality was 245, magnesium 1.3, creatinine 1.17. BNP was elevated at 442. Troponin was 0.02 and 6 hours post admission was 0.02. X-ray of his left shoulder showed no acute findings. He had a chest x-ray as well and it showed cardiomegaly with suggestion of mild edematous, infectious or inflammatory process but no lobar consolidation. Given his advanced age, decline in his strength and significant hyponatremia, the patient was admitted for further treatment and evaluation. HOSPITAL COURSE: Initially there were some concerns if he was suffering from some mild water intoxication, but his sodium level on his urine was checked. He was also on some normal saline as well as Lasix IV. He was treated with diuretics as well as fluid restriction. He was on DVT prophylaxis per his Eliquis that he was on as a home medication. His home medications were restarted. Wound care was done to the decubitus ulcer twice daily as well as frequent turning. Cultures on the decubitus were done as well as his urine. He was started on Rocephin and vancomycin. He showed slow improvement each day. Physical Therapy was consulted. He actually started getting out of bed. He continued to have quite a bit of pain in his coccyx area. He did have a Adams catheter and an additional urinalysis was obtained and it was within normal limits. His sodium slowly improved. His IV fluids were discontinued. His labs were followed closely. His wound was treated with Medihoney. He was given Tramadol for pain. The initial wound culture showed a Staph species and urine culture initially showed a Strep species. His family decided that he would be discharged to [facility] upon completion of his Acute Care stay. He continued on Rocephin and vancomycin. He received 5 days of vancomycin therapy and he can be discharged today in stable condition to [facility]. LABORATORY: CBC was mostly unremarkable except he did show a slight anemia with hemoglobin 11.1 and hematocrit 32.7. Coagulation studies were unremarkable. Initial sodium was 120 and today it was 128. Potassium remained stable between 3.8 and 4.1. Chloride remains slightly low but it is 94 today. BUN 18, creatinine improved to 0.96, serum osmolality was 259.3, magnesium 1.8. Wound culture showed a light growth of Staphylococcus aureus. It was sensitive to vancomycin as well as Bactrim. Urine culture showed Strep species with urine culture still pending. RADIOLOGY: Reported as per the History of Present Illness. DISCHARGE PLAN: The patient will be discharged to [facility] in stable condition. He is to resume his usual diet and increase his activity as tolerated. He will have Physical Therapy consult at [facility]. Wound care is to be continued twice daily with Medihoney as previously started. He is to resume his home medications with the addition of Cefdinir for 7 days and Bactrim for 7 days. I will also send him home on some Tramadol for pain. He will need a followup with his primary care provider, Dr. Bob, within 1 to 2 weeks. At that time it is recommended to review his urine culture. He did have a second UA which was negative. The original urine culture may have been a contaminant from the Adams bag. It is recommended that the urine culture be followed. He is to return to the hospital or call Dr. Bob's office for any problems or complications. DISCHARGE MEDICATIONS: 1. Amiodarone. 2. Aspirin. 3. Multivitamin. 4. Potassium chloride. 5. Crestor. 6. Metoprolol. 7. Furosemide. 8. Levothyroxine. 9. Pantoprazole. 10. Namenda. 11. Atorvastatin. 12. Rivastigmine. 13. Eliquis. 14. Metolazone. 15. Entresto. 16. Mobic. 17. Glycopyrrolate. 18. Dulcolax. 19. Nizoral cream. 20. Nystatin powder. 21. Saline nasal spray. 22. Simethicone. 23. MiraLAX. 24. Provigil. 25. Loratadine. 26. Lidocaine gel. 27. Bisacodyl. 28. Fluticasone nasal. 29. Senokot. 30. Belladonna/opium. 31. Balsam [place]. 32. Acetaminophen. 33. Tamsulosin. 34. Cefdinir. 35. Sulfa. 36. Bactrim. 37. Tramadol. #[id number] MTDD
== END 2019-04-02 10:05 | DRG 641 ==
LOC: ER 00:34 → MS 02:10 → OBSVTOIN 02:10
PROVIDERS: ADMIT Nurse Practitioner Family; ATTEND Nurse Practitioner Acute Care
DX: E87.1 Hypo-osmolality and hyponatremia (principal); N39.0 Urinary tract infection, site not specified; L89.152 Pressure ulcer of sacral region, stage 2; B95.61 Methicillin susceptible Staphylococcus aureus infection as the cause of diseases classified elsewhere; I11.0 Hypertensive heart disease with heart failure; I50.9 Heart failure, unspecified; G89.29 Other chronic pain; D64.9 Anemia, unspecified; K57.30 Diverticulosis of large intestine without perforation or abscess without bleeding; I48.2 Chronic atrial fibrillation; E03.9 Hypothyroidism, unspecified; I25.10 Atherosclerotic heart disease of native coronary artery without angina pectoris; E66.9 Obesity, unspecified; Z95.0 Presence of cardiac pacemaker; Z79.02 Long term (current) use of antithrombotics/antiplatelets; Z96.651 Presence of right artificial knee joint; Z79.1 Long term (current) use of non-steroidal anti-inflammatories (NSAID); Z79.82 Long term (current) use of aspirin; Z79.899 Other long term (current) drug therapy; Z86.73 Personal history of transient ischemic attack (TIA), and cerebral infarction without residual deficits; Z68.31 Body mass index [BMI] 31.0-31.9, adult

== ENCOUNTER 2019-04-29 10:36 | Observation (INO) | payer MEDICARE, OTHER ==
--- NOTE | 2019-04-29 11:22 | RAD ---
EXAM: XR Chest, 1 View CLINICAL HISTORY: 89 years old and is Male; AMS TECHNIQUE: Frontal view of the chest. COMPARISON: 03/29/2019. FINDINGS: Limitations: None. Lungs: Interstitial changes have almost completely resolved. Pleural space: Unremarkable. No pneumothorax. Heart: Stable cardiomegaly. Mediastinum: Unremarkable. Bones/joints: Unremarkable. Tubes, lines and devices: Cardiac pacing wires unchanged. IMPRESSION: Interstitial changes have almost completely resolved. Electronically signed by: Maryjo Cantu MD 04/29/2019 11:20 AM CDT
[2019-04-29] MEDS ORDERED: SODIUM CHLORIDE 0.9% 1000ML 1,000 ML IVS ONE (11:26)
--- NOTE | 2019-04-29 11:26 | ED.PDOC ---
History of Present Illness - General Chief Complaint: General Stated Complaint: Change in mental status Time Seen by Provider: 04/29/19 10:55 Source: patient, family Exam Limitations: other - dementia - History of Present Illness Initial Comments: Patient presents from [place] with AMS. He has been restless and confused more than his baseline. He has a history of a CABG but his family says that he never has had an AMI. The patient does not offer any particular complaints and jokingly says that he is here to "play softball". Timing/Duration: 24 hours Severity: moderate Improving Factors: nothing Worsening Factors: nothing Associated Symptoms: other - as in HPI Allergies/Adverse Reactions: Allergies NO KNOWN ALLERGY Allergy (Verified 03/29/19 01:46) Home Medications: Ambulatory Orders Amiodarone HCl [Pacerone] 200 mg PO BEDTIME 06/24/16 Aspirin [Aspirin EC] 81 mg PO DAILY 06/24/16 Finasteride [Proscar] 5 mg PO BEDTIME 06/24/16 Furosemide [Lasix] 20 mg PO DAILY 06/24/16 Metoprolol Succinate [Metoprolol Succinate ER] 50 mg PO BEDTIME 06/24/16 Multiple Vitamins W/ Minerals [Multi For Him 50+] 1 tab PO DAILY 06/24/16 Potassium Chloride [K-Tab] 20 meq PO DAILY 06/24/16 Levothyroxine Sodium [Synthroid] 100 mcg PO BEDTIME 06/29/16 Atorvastatin Calcium [Lipitor] 20 mg PO DAILY 02/08/18 Memantine HCl [Namenda] 10 mg PO DAILY 02/08/18 Pantoprazole Tablet [Protonix] 40 mg PO DAILY 02/08/18 Rivastigmine Tartrate 4.5 mg PO DAILY 02/08/18 Apixaban [Eliquis] 2.5 mg PO BID #30 tab 02/11/18 Glycopyrrolate 2 mg PO BID 03/09/19 Meloxicam [Mobic] 7.5 mg PO DAILY 03/09/19 Metolazone 2.5 mg PO DAILY 03/09/19 Sacubitril-Valsartan [Entresto 24-26 mg] 1 tab PO BID 03/09/19 Bisacodyl [Dulcolax Tab] 10 mg PO DAILY tab 03/12/19 Ketoconazole Cream [Nizoral Cream] 1 applic TOP BID appli 03/12/19 Nystatin Powder 1 applic TOP QID appli 03/12/19 Acetaminophen [Tylenol] 650 mg PO .Q4H PRN 03/29/19 Balsam Breanne-Baldwin Oil [Venelex] 1 oin EX BID 03/29/19 Belladonna Alkaloids & Opium [Belladonna/Opium 16.2-30 mg] 1 sup GA BID PRN 03/29/19 Bisacodyl [Dulcolax] 10 mg GA DAILY 03/29/19 Fluticasone Prop 0.05% Nasal [Flonase Nasal [place]] 100 mcg NA DAILY 03/29/19 Lidocaine 2% Gel [Xylocaine 2% GEL] 2 % TOP .Q6H PRN 03/29/19 Loratadine [Claritin] 10 mg PO DAILY 03/29/19 Modafinil [Provigil] 200 mg PO ACBK 03/29/19 Pantoprazole Tablet [Protonix] 40 mg PO ACBK 03/29/19 Polyethylene Glycol 3350 [Miralax] 17 gm PO DAILY 03/29/19 Saline [Nasal Moist] 0.65 % NA .Q3H PRN 03/29/19 Senna/Docusate Tab [Senokot-S] 2 ea PO BID 03/29/19 Senna/Docusate Tab [Senokot-S] 2 ea PO PRN 03/29/19 Simethicone 80 mg PO PRN PRN 03/29/19 Tamsulosin 0.4 mg PO BID 03/29/19 Cefdinir 300 mg PO BID #14 capsule 04/02/19 Sulfa/Trimeth 800/160 (Ds) Tab [Bactrim DS] 1 tablet PO BID #14 tab 04/02/19 Tramadol HCl 50 mg PO Q4H PRN #30 tab 04/02/19 Review of Systems - Review of Systems Constitutional: States: no symptoms reported EENTM: States: no symptoms reported Respiratory: States: no symptoms reported Past Medical History (General) - Patient Medical History Hx Seizures: No Hx Stroke: No Hx Dementia: Yes Hx Asthma: No Hx of COPD: Yes Hx Cardiac Disorders: Yes - A fib Hx Congestive Heart Failure: Yes Hx Pacemaker: Yes Hx Hypertension: Yes Hx Thyroid Disease: Yes Hx Diabetes: No Hx Gastroesophageal Reflux: Yes Hx MRSA: No Surgical History: appendectomy, coronary bypass surgery, pacemaker, other - Vaccination History Hx Tetanus, Diphtheria Vaccination: Yes Hx Influenza Vaccination: Yes - 2018 Hx Pneumococcal Vaccination: Yes - Social History Hx Tobacco Use: No Hx Alcohol Use: No - Activities of Daily Living Detention/Assisted Living (if applicable):: [facility] Family Medical History - Family History Father Family History: Unknown Physical Exam - Physical Exam General Appearance: Alert Eye Exam: bilateral normal Ears, Nose, Throat: normal ENT inspection Neck: non-tender, full range of motion, supple Respiratory: lungs clear, normal breath sounds Cardiovascular/Chest: regular rate, rhythm, other - 1+ non-pitting edema bilateral LE Gastrointestinal/Abdominal: normal bowel sounds, non tender, soft Back Exam: normal inspection, no CVA tenderness Extremity: normal range of motion, non-tender, normal inspection Neurologic: no motor/sensory deficits, other - alert to person only Skin Exam: normal color Lymphatic: no adenopathy Progress - Progress Progress: 04/29/19 14:54 Laboratory Tests 04/29/19 04/29/19 04/29/19 11:23 11:26 11:28 WBC RBC Hgb Hct MCV MCH MCHC RDW Plt Count MPV Absolute Neuts (auto) Absolute Lymphs (auto) Absolute Monos (auto) Absolute Eos (auto) Absolute Basos (auto) Neutrophils % Lymphocytes % Monocytes % Eosinophils % Basophils % Sodium Potassium Chloride Carbon Dioxide Anion Gap BUN Creatinine BUN/Creatinine Ratio Random Glucose Serum Osmolality Calcium Phosphorus Magnesium Total Bilirubin AST ALT Alkaline Phosphatase Creatine Kinase 84 CK-MB (CK-2) 1.5 CK-MB (CK-2) % Not Reportable Troponin I 0.04 B-Natriuretic Peptide 1330.0 H* Serum Total Protein Albumin Globulin Albumin/Globulin Ratio TSH Thyroxine (T4) Urine Color Yellow Urine Appearance Clear Urine pH 7.0 Ur Specific [place] 1.020 Urine Protein 30 Urine Glucose (UA) Negative Urine Ketones Negative Urine Blood Large H Urine Nitrite Negative Urine Bilirubin Negative Urine Urobilinogen 1.0 Ur Leukocyte Esterase Small H Urine RBC Tntc H Urine WBC 3-5 H Ur Epithelial Cells 0 Urine Bacteria 1+ 04/29/19 04/29/19 04/29/19 11:38 11:38 11:38 WBC 10.8 RBC 3.92 L Hgb 12.2 L Hct 36.4 L MCV 92.7 MCH 31.1 H MCHC 33.6 RDW 16.5 H Plt Count 201 MPV 7.2 L Absolute Neuts (auto) 7.80 H Absolute Lymphs (auto) 1.70 Absolute Monos (auto) 1.20 H Absolute Eos (auto) 0.00 Absolute Basos (auto) 0.10 Neutrophils % 72.1 Lymphocytes % 16.2 L Monocytes % 10.7 H Eosinophils % 0.3 L Basophils % 0.7 Sodium 133 L Potassium 2.8 L Chloride 95 L Carbon Dioxide 27 Anion Gap 13.8 BUN 23 H Creatinine 1.23 BUN/Creatinine Ratio 18.7 Random Glucose 109 H Serum Osmolality 270.6 L Calcium 8.8 Phosphorus 2.9 Magnesium 1.5 L Total Bilirubin 1.1 H AST 41 ALT 34 Alkaline Phosphatase 82 Creatine Kinase CK-MB (CK-2) CK-MB (CK-2) % Troponin I B-Natriuretic Peptide Serum Total Protein 7.3 Albumin 3.1 L Globulin 4.2 H Albumin/Globulin Ratio 0.7 L TSH Thyroxine (T4) Urine Color Urine Appearance Urine pH Ur Specific [place] Urine Protein Urine Glucose (UA) Urine Ketones Urine Blood Urine Nitrite Urine Bilirubin Urine Urobilinogen Ur Leukocyte Esterase Urine RBC Urine WBC Ur Epithelial Cells Urine Bacteria 04/29/19 13:12 WBC RBC Hgb Hct MCV MCH MCHC RDW Plt Count MPV Absolute Neuts (auto) Absolute Lymphs (auto) Absolute Monos (auto) Absolute Eos (auto) Absolute Basos (auto) Neutrophils % Lymphocytes % Monocytes % Eosinophils % Basophils % Sodium Potassium Chloride Carbon Dioxide Anion Gap BUN Creatinine BUN/Creatinine Ratio Random Glucose Serum Osmolality Calcium Phosphorus Magnesium Total Bilirubin AST ALT Alkaline Phosphatase Creatine Kinase CK-MB (CK-2) CK-MB (CK-2) % Troponin I B-Natriuretic Peptide Serum Total Protein Albumin Globulin Albumin/Globulin Ratio TSH 1.71 Thyroxine (T4) 11.30 Urine Color Urine Appearance Urine pH Ur Specific [place] Urine Protein Urine Glucose (UA) Urine Ketones Urine Blood Urine Nitrite Urine Bilirubin Urine Urobilinogen Ur Leukocyte Esterase Urine RBC Urine WBC Ur Epithelial Cells Urine Bacteria Rate was 121 with wide complexes. BNP 1330. I spoke with Dr. Welch who is from his cardiology group and it was suggested to try amiodarone 150 mg IV x one since this was probably an exacerbation of atrial flutter. This was done and the patient's HR went to 60, with electronic pacemaker. Dr. Welch called a pacemaker event crew technician to come evaluate the patient's pacemaker. Potassium was 2.8 so the patient was started on potassium chloride 40 meq IV in the E.D. Magnesium was 1.5 so he was given magnesium chloride 2 grams in the E.D. Patient was stable. He likely has acute delirium on chronic dementia or his dementia has simply worsened. There was hematuria but no evidence of UTI. Patient admitted for observation by Kalin Gilbert. Departure - Departure Clinical Impression: Dementia, CHF (congestive heart failure) Disposition: Admit Patient Condition: Good Departure Forms: ED Discharge - Pt. Copy, Patient Portal Self Enrollment Diet: other - as per hospitalist Activity: other - as per hospitalist Referrals: Brock Bob MD [Primary Care Provider] - 1-2 Weeks Home Medications: Ambulatory Orders Amiodarone HCl [Pacerone] 200 mg PO BEDTIME 06/24/16 Aspirin [Aspirin EC] 81 mg PO DAILY 06/24/16 Finasteride [Proscar] 5 mg PO BEDTIME 06/24/16 Furosemide [Lasix] 20 mg PO DAILY 06/24/16 Metoprolol Succinate [Metoprolol Succinate ER] 50 mg PO BEDTIME 06/24/16 Multiple Vitamins W/ Minerals [Multi For Him 50+] 1 tab PO DAILY 06/24/16 Potassium Chloride [K-Tab] 20 meq PO DAILY 06/24/16 Levothyroxine Sodium [Synthroid] 100 mcg PO BEDTIME 06/29/16 Atorvastatin Calcium [Lipitor] 20 mg PO DAILY 02/08/18 Memantine HCl [Namenda] 10 mg PO DAILY 02/08/18 Pantoprazole Tablet [Protonix] 40 mg PO DAILY 02/08/18 Rivastigmine Tartrate 4.5 mg PO DAILY 02/08/18 Apixaban [Eliquis] 2.5 mg PO BID #30 tab 02/11/18 Glycopyrrolate 2 mg PO BID 03/09/19 Meloxicam [Mobic] 7.5 mg PO DAILY 03/09/19 Metolazone 2.5 mg PO DAILY 03/09/19 Sacubitril-Valsartan [Entresto 24-26 mg] 1 tab PO BID 03/09/19 Bisacodyl [Dulcolax Tab] 10 mg PO DAILY tab 03/12/19 Ketoconazole Cream [Nizoral Cream] 1 applic TOP BID appli 03/12/19 Nystatin Powder 1 applic TOP QID appli 03/12/19 Acetaminophen [Tylenol] 650 mg PO .Q4H PRN 03/29/19 Balsam Breanne-Baldwin Oil [Venelex] 1 oin EX BID 03/29/19 Belladonna Alkaloids & Opium [Belladonna/Opium 16.2-30 mg] 1 sup GA BID PRN 03/29/19 Bisacodyl [Dulcolax] 10 mg GA DAILY 03/29/19 Fluticasone Prop 0.05% Nasal [Flonase Nasal [place]] 100 mcg NA DAILY 03/29/19 Lidocaine 2% Gel [Xylocaine 2% GEL] 2 % TOP .Q6H PRN 03/29/19 Loratadine [Claritin] 10 mg PO DAILY 03/29/19 Modafinil [Provigil] 200 mg PO ACBK 03/29/19 Pantoprazole Tablet [Protonix] 40 mg PO ACBK 03/29/19 Polyethylene Glycol 3350 [Miralax] 17 gm PO DAILY 03/29/19 Saline [Nasal Moist] 0.65 % NA .Q3H PRN 03/29/19 Senna/Docusate Tab [Senokot-S] 2 ea PO BID 03/29/19 Senna/Docusate Tab [Senokot-S] 2 ea PO PRN 03/29/19 Simethicone 80 mg PO PRN PRN 03/29/19 Tamsulosin 0.4 mg PO BID 03/29/19 Cefdinir 300 mg PO BID #14 capsule 04/02/19 Sulfa/Trimeth 800/160 (Ds) Tab [Bactrim DS] 1 tablet PO BID #14 tab 04/02/19 Tramadol HCl 50 mg PO Q4H PRN #30 tab 04/02/19 Critical Care Note - Critical Care Note Total Time (mins): 120
[2019-04-29] MEDS ORDERED: POTASSIUM CHLORIDE INJ 40 MEQ 40 MEQ in SODIUM CHLORIDE 0.9% 250ML 250 ML IVPB ONE (12:03)
[2019-04-29] MEDS ORDERED: SODIUM CHLORIDE 0.9% 250ML 250 ML ONE (12:05)
[2019-04-29] MEDS ORDERED: POTASSIUM CHLORIDE 40mEq 20ML VIAL ONE (12:05)
[2019-04-29] MEDS ORDERED: AMIODARONE IV (LOAD) 150 MG in DEXTROSE 5% 100ML 100 ML IVPB ONE (12:35)
[2019-04-29] MEDS ORDERED: AMIODARONE HCL 150 MG/3 ML VIAL IVPB ONE (12:49)
[2019-04-29] MEDS ORDERED: DEXTROSE 5% 100ML 100 ML IVPB ONE (12:49)
[2019-04-29] MEDS ORDERED: MAGNESIUM SULFATE PREMIX 2GM 2 GM in PREMIX BAG 1 BAG IVPB ONE (14:14)
[2019-04-29] MEDS ORDERED: MAGNESIUM SULFATE PREMIX 2GM 50 ML IVPB ONE (15:54)
--- NOTE | 2019-04-29 17:15 | HP ---
SUPERVISING PHYSICIAN: Jonathan Nichole MD CHIEF COMPLAINT: Acute mental status change. HISTORY OF PRESENT ILLNESS: Mr. Farrar is a resident of [facility], 89 years of age, male patient. He was referred to the Emergency Room today due to some restlessness and confused state which is reported more than his baseline. On admission to the Emergency Room, the patient was without any significant complaints other than he thought he was there to play some softball. 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 Initially in the Emergency Room, it was noted his heart rate was in the 120s, irregular with a blood pressure 89/65. Dr. Reddy called Dr. Welch, controls design engineer, and discussed the case who recommended the patient be given some amiodarone and a pacemaker check would be completed in the Emergency Room today. After administered of amiodarone, the patient's heart rate slowed into the 60s and became regular but paced. His laboratory studies showed a urinalysis with 1+ bacteria with 3 to 5 WBCs, large amount of blood, small amount of leukocyte esterase with chronic indwelling Adams catheter. It was also noted on labs that he had a significantly low potassium of 2.8 as well as magnesium of 1.5. He does have a history of chronic hyponatremia and has been in the hospital previously in the last several months for complications due to low sodium and does take Lasix. Sodium today was at 133. His reported that yesterday he was up well over 20 times complaining of he had to go to the bathroom to pee and was pulling on his Adams catheter. Urine culture was collected and after he was stabilized, Dr. Reddy requested the patient be admitted for ongoing treatment of hypokalemia, hypomagnesemia and underlying urinary tract infection resulting in some acute mental status changes. It was also noted that he did have an elevated BNP of 1330, but his chest x-ray per radiologic interpretation showed interstitial changes that had almost completely resolved compared to films done on 03/29/19. The patient was not in any acute respiratory distress. Lungs sounds were essentially clear. It was felt that possibly the BNP was related to his tachycardic event. He was given 2 grams of magnesium, 40 mEq of potassium and 1 liter of fluids in the Emergency Room. The patient was stable and to be placed in Observation for further evaluation and treatment of acute mental status change and urinary tract infection. PAST MEDICAL HISTORY: 1. Congestive heart failure of uncertain etiology. 2. Coronary artery disease. 3. Chronic atrial fibrillation on anticoagulation. 4. Status post pacemaker implantation. 5. Hypothyroidism. 6. Chronic coccyx decubitus ulcer, Stage 2. PAST SURGICAL HISTORY: 1. Pacemaker implantation. 2. Right knee arthroscopy. 3. Appendectomy. HOME MEDICATIONS: 1. Tramadol 50 mg q.4h. as needed for pain. 2. Flomax 0.4 mg b.i.d. 3. Bactrim 1 tablet b.i.d. 4. Simethicone 80 mg as needed. 5. Senokot-S 2 tablets b.i.d. and 2 tablets as needed p.r.n. 6. Saline Moist 0.65% inhaled both nostrils q.3h. as needed. 7. Entresto 24-26 1 tablet p.o. b.i.d. 8. Rivastigmine 4.5 mg daily. 9. Potassium 20 mEq daily. 10. MiraLAX 17 grams daily. 11. Protonix 40 mg before breakfast. 12. Nystatin as needed q.i.d. 13. Multivitamin 1 tablet daily. 14. Provigil 200 mg at breakfast. 15. Metoprolol succinate 50 mg at bedtime. 16. Metolazone 2.5 mg daily. 17. Namenda 2 mg daily. 18. Mobic 750 mg daily. 19. Claritin 10 mg daily. 20. Lidocaine gel as needed q.6h. 21. Synthroid 100 mcg at bedtime. 22. Nizoral cream 1 topically as needed b.i.d. 23. Glycopyrrolate 2 mg b.i.d. 24. Lasix 20 mg daily. 25. Flonase 100 mcg daily. 26. Proscar 5 mg at bedtime. 27. Dulcolax 10 mg daily. 28. Belladonna/opium 1.62-30 mg 1 suppository p.r.n. 29. Venelex as needed. 30. Lipitor 20 mg daily. 31. Aspirin 81 mg daily. 32. Eliquis 2.5 mg b.i.d. 33. Amiodarone 200 mg at bedtime. 34. Tylenol 650 mg q.6h. as needed. ALLERGIES: NO KNOWN DRUG ALLERGIES. FAMILY HISTORY: Noncontributory. SOCIAL HISTORY: The patient denies illicit drug use or tobacco. He does drink scotch and club soda previously in the past, usually a couple of times a week. He is retired from the [employer]. He lives in [place] with his , currently at [facility]. REVIEW OF SYSTEMS: CONSTITUTIONAL: Negative for any fevers, chills or general malaise. HEENT: Negative for sore throats, earaches, nasal congestion, headaches. RESPIRATORY: Denies any shortness of breath, wheezing, coughing, productive cough. CARDIOVASCULAR: Negative for chest pain, palpitations or syncopal episodes. GASTROINTESTINAL: Negative for nausea, vomiting, diarrhea, constipation or abdominal pain. GENITOURINARY: Chronic Adams in place. NEUROLOGIC: As noted in history of present illness, acute confusional state for the last 24 hours, questionable Sundowner's. No reported seizures, ataxia. SKIN: Chronic decubitus ulcer to the coccyx area. No other lesions or rashes reported. PHYSICAL EXAMINATION: VITAL SIGNS: In the Emergency Room initially, temperature 98.3, pulse 118 to 120, blood pressure 89/65, respirations 20, saturation 93% on room air. After treatment with medications, amiodarone, he had better controlled heart rate. Heart rate was down to 60, blood pressure 101/66, O2 saturation 93% on room air. GENERAL: On examination on the Medical/Surgical Floor, the patient is visiting with his and eating a sandwich. He appears to be in no acute distress. He was alert and not obviously confused and per , back to baseline metal status. HEENT: Tympanic membranes clear bilaterally. Oropharynx is pink, moist without any lesions. NECK: Supple, nontender with full range of motion. No jugular venous distention noted. RESPIRATORY: Lungs clear to auscultation bilaterally without any rhonchi, wheezes or rales. CARDIOVASCULAR: Regular rate and rhythm without any appreciable murmurs, gallops, or rubs. ABDOMEN: Obese, soft, nontender. Positive bowel sounds. EXTREMITIES: Trace edema bilaterally to lower extremities. No cyanosis or clubbing. BACK: Without any CVA or vertebral tenderness. SKIN: Stage 2 decubitus ulcer to the coccyx measuring 1 x 1 x 1 cm with no obvious drainage. NEUROLOGIC: The patient is alert and oriented to himself, his , but no location or time. Facial features are symmetrical. Extraocular movements are within normal limits. There is no nystagmus noted. Cranial nerves II-XII are grossly intact. SKIN: [place], warm and dry. LABORATORY: White count 10,800, hemoglobin 12.2, hematocrit 36.4, platelet count 201,000. Differential shows a slight left shift. Chemistries show electrolytes with sodium 133, potassium 3.8, BUN 23, creatinine 1.23, glucose 109, calcium 8.8, magnesium 1.5, phosphorous 2.9, bilirubin elevated at 1.8. All other liver functions were within normal limits. T4 and T3 were both normal. BNP elevated at 1330. Urinalysis from Adams catheter showed large amount of blood, small amount of leukocyte esterase, too numerous to count RBCs, 3 to 5 WBCs, 0 epithelials, 1+ bacteria. MICROBIOLOGY: Urine culture pending. RADIOLOGY: Chest x-ray in the Emergency Room, single-view, per radiologic interpretation showed interstitial changes almost resolved compared to images on 03/29/19. ASSESSMENT: 1. Acute on chronic congestive heart failure without current echocardiogram available for review with elevated BNP on admission, possibly exacerbated by underlying atrial fibrillation/atrial flutter. 2. Acute mental status change, probably due to underlying urinary tract infection. 3. Urinary tract infection secondary to chronic indwelling Adams catheter prior to admission, requiring Adams catheter replacement with cultures pending. 4. Electrolyte imbalance with hyponatremia, hypomagnesemia, probably contributing to #1, requiring parenteral replacement. 5. Chronic dementia. 6. 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 7. Coronary artery disease. 8. Chronic atrial fibrillation on anticoagulation. 9. Status post pacemaker implantation. 10. Hypothyroidism on supplementation with normal TSH. PLAN: The patient is going to be placed in Observation tonight with medications resumed once those have been updated and verified. We will start him on some Rocephin for the underlying urinary tract infection, replace his Adams catheter and await culture results. He is well-hydrated, so we will hold off on any IV fluids at this point. We will anticipate length of stay to be at least 1 to 2 days. He will be on DVT prophylaxis per protocol with Eliquis. We will plan to repeat labs in the morning and replace magnesium and potassium as needed. We will hopefully anticipate discharging back to [facility] later tomorrow or at least by Tuesday. Until the patient can transition to outpatient management, we will continue to monitor and treat as needed. #[id number] MTDD
[2019-04-29] MEDS ORDERED: ALUM & MAG HYDROX-SIMETHICONE 30 ML UD PO PRN (18:51)
[2019-04-29] MEDS ORDERED: ACETAMINOPHEN 325 MG TAB PO PRN (18:51)
[2019-04-29] MEDS ORDERED: ONDANSETRON INJ 4 MG/2 ML VIAL IV PRN (18:51)
[2019-04-29] MEDS ORDERED: MAGNESIUM HYDROXIDE 30 ML UD PO PRN (18:51)
[2019-04-29] MEDS ORDERED: SODIUM CHLORIDE 0.9% (FLUSH) 10 ML SYG IV PRN (18:51)
[2019-04-29] MEDS ORDERED: IV SET AND CAP CHANGE INJ INJ SCH (19:00)
[2019-04-29] MEDS ORDERED: TAMSULOSIN 0.4 MG CAP ONE (22:50)
[2019-04-29] MEDS: SENNA/DOCUSATE TAB 1 EA TAB PO SCH (22:54)
[2019-04-29] MEDS: TAMSULOSIN 0.4 MG PO SCH (22:54)
[2019-04-29] MEDS: SACUBITRIL VALSARTAN PO SCH (22:55)
[2019-04-29] MEDS: APIXABAN 2.5 MG TAB PO SCH (22:55)
[2019-04-30 06:44] VITALS: TEMP 98.5
[2019-04-30] MEDS ORDERED: METOPROLOL TARTRATE 25 MG TAB ONE (07:53)
[2019-04-30] MEDS ORDERED: SITagliptin 50 MG TAB PO ONE (07:53)
[2019-04-30] MEDS ORDERED: SODIUM CHL 0.9% 50ML MIN-BAG+ 50 ML IVPB ONE (07:53)
[2019-04-30] MEDS ORDERED: ENOXAPARIN SODIUM 40 MG/0.4 ML SYG SUBCU ONE (07:54)
[2019-04-30] MEDS ORDERED: cefTRIAXone SODIUM 1 GM VIAL ONE (07:54)
[2019-04-30] MEDS ORDERED: CALCIUM CARBONATE-VITAMIN D 500 MG TAB ONE (07:54)
[2019-04-30] MEDS ORDERED: amLODIPine BESYLATE 5 MG TAB ONE (07:54)
[2019-04-30 08:09] VITALS: O2SAT 98
[2019-04-30] MEDS: SENNA/DOCUSATE TAB 1 EA TAB PO SCH (08:27)
[2019-04-30] MEDS ORDERED: MELOXICAM 7.5 MG TAB PO SCH (09:00)
[2019-04-30] MEDS ORDERED: ASPIRIN (ENTERIC COATED) 81 MG TAB PO SCH (09:00)
[2019-04-30] MEDS ORDERED: PANTOPRAZOLE SODIUM TAB 40 MG PO SCH (09:00)
[2019-04-30] MEDS ORDERED: PRO STAT AWC PO SCH (09:00)
[2019-04-30] MEDS ORDERED: ATORVASTATIN 20 MG TAB PO SCH (09:00)
[2019-04-30] MEDS ORDERED: LORATADINE 10 MG TAB PO SCH (09:00)
[2019-04-30] MEDS ORDERED: ASCORBIC ACID 500 MG TAB PO SCH (09:00)
[2019-04-30] MEDS ORDERED: MULTIPLE VITAMINS W/ MINERALS 1 EA TAB PO SCH (09:00)
[2019-04-30] MEDS ORDERED: [UNRECOGNIZED DRUG - OTHER] TOP SCH (09:00)
[2019-04-30] MEDS ORDERED: LACTOBACILLUS 1 TAB PO SCH (09:00)
[2019-04-30] MEDS ORDERED: KETOCONAZOLE CREAM 15 GM TUBE TOP SCH (09:00)
[2019-04-30] MEDS ORDERED: ZINC 50 MG CAPSULE PO SCH (09:00)
[2019-04-30] MEDS ORDERED: FUROSEMIDE 40 MG TAB PO SCH (09:00)
[2019-04-30] MEDS ORDERED: metOLazone 2.5 MG TAB PO SCH (09:00)
[2019-04-30] MEDS ORDERED: POTASSIUM CHLORIDE 20 MEQ TAB PO SCH (09:00)
[2019-04-30] MEDS ORDERED: POLYETHYLENE GLYCOL 3350 17 GM PCKT PO SCH (09:00)
[2019-04-30] MEDS ORDERED: TAMSULOSIN 0.4 MG CAP PO SCH (09:45)
[2019-04-30 10:24] VITALS: BP 118/74
[2019-04-30] MEDS: TAMSULOSIN 0.4 MG PO SCH (10:45)
[2019-04-30] MEDS: APIXABAN 2.5 MG TAB PO SCH (10:54)
[2019-04-30] MEDS: SACUBITRIL VALSARTAN PO SCH (10:58)
[2019-04-30] MEDS ORDERED: cefTRIAXone SODIUM 1 GM in SODIUM CHL 0.9% 50ML MIN-BAG+ 50 ML IVPB SCH (11:00)
[2019-04-30] MEDS ORDERED: CIPROFLOXACIN 500 MG TAB PO ONE (11:28)
[2019-04-30] MEDS ORDERED: FINASTERIDE 5 MG TAB PO SCH (21:00)
[2019-04-30] MEDS ORDERED: METOPROLOL SUCCINATE XL 50 MG TAB PO SCH (21:00)
[2019-04-30] MEDS ORDERED: LEVOTHYROXINE SODIUM 0.1 MG TAB PO SCH (21:00)
[2019-04-30] MEDS ORDERED: AMIODARONE HCL 200 MG TAB PO SCH (21:00)
[2019-05-01] MEDS ORDERED: PANTOPRAZOLE SODIUM TAB 40 MG PO SCH (06:30)
--- NOTE | 2019-05-01 11:00 | DS ---
SUPERVISING PHYSICIAN: Thanh Leon MD ADMISSION DIAGNOSIS: 1. Acute on chronic congestive heart failure without current echocardiogram available for review with elevated BNP on admission, possibly exacerbated by underlying atrial fibrillation/atrial flutter. 2. Acute mental status change, probably due to underlying urinary tract infection. 3. Urinary tract infection secondary to chronic indwelling Adams catheter prior to admission, requiring Adams catheter replacement with cultures pending. 4. Electrolyte imbalance with hyponatremia, hypomagnesemia, probably contributing to #1, requiring parenteral replacement. 5. Chronic dementia. 6. 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 7. Coronary artery disease. 8. Chronic atrial fibrillation on anticoagulation. 9. Status post pacemaker implantation. 10. Hypothyroidism on supplementation with normal TSH. DISCHARGE DIAGNOSIS: 1. Urinary tract infection secondary to chronic indwelling Adams catheter in place prior to admission with Adams catheter replaced and cultures pending at time of discharge with the patient on ciprofloxacin at discharge with preliminary report showing a gram negative bacilli. 2. Acute mental status change, probably due to #1 with the patient returning to baseline levels prior to discharge. 3. Electrolyte imbalance with hyponatremia, hypomagnesemia, requiring replacement and returning to baseline levels prior to discharge. 4. Gross hematuria secondary to Eliquis and recent Adams catheter replacement with no signs of complication. 5. Atrial fibrillation with rapid ventricular response requiring amiodarone and pacemaker check in the Emergency Room with the patient being stable prior to admission and at discharge. 6. Chronic dementia. 7. 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 8. Coronary artery disease. 9. Chronic atrial fibrillation on anticoagulation. 10. Status post pacemaker implantation. 11. Hypothyroidism on supplementation with normal TSH. REASON FOR HOSPITALIZATION: Mr. Farrar is a resident of [facility], 89 years of age, male patient. He was referred to the Emergency Room today due to some restlessness and confused state which is reported more than his baseline. On admission to the Emergency Room, the patient was without any significant complaints other than he thought he was there to play some softball. 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 Initially in the Emergency Room, it was noted his heart rate was in the 120s, irregular with a blood pressure 89/65. Dr. Reddy called Dr. Welch, mannequin decorator, and discussed the case who recommended the patient be given some amiodarone and a pacemaker check would be completed in the Emergency Room today. After administered of amiodarone, the patient's heart rate slowed into the 60s and became regular but paced. His laboratory studies showed a urinalysis with 1+ bacteria with 3 to 5 WBCs, large amount of blood, small amount of leukocyte esterase with chronic indwelling Adams catheter. It was also noted on labs that he had a significantly low potassium of 2.8 as well as magnesium of 1.5. He does have a history of chronic hyponatremia and has been in the hospital previously in the last several months for complications due to low sodium and does take Lasix. Sodium today was at 133. His reported that yesterday he was up well over 20 times complaining of he had to go to the bathroom to pee and was pulling on his Adams catheter. Urine culture was collected and after he was stabilized, Dr. Reddy requested the patient be admitted for ongoing treatment of hypokalemia, hypomagnesemia and underlying urinary tract infection resulting in some acute mental status changes. It was also noted that he did have an elevated BNP of 1330, but his chest x-ray per radiologic interpretation showed interstitial changes that had almost completely resolved compared to films done on 03/29/19. The patient was not in any acute respiratory distress. Lungs sounds were essentially clear. It was felt that possibly the BNP was related to his tachycardic event. He was given 2 grams of magnesium, 40 mEq of potassium and 1 liter of fluids in the Emergency Room. The patient was stable and to be placed in Observation for further evaluation and treatment of acute mental status change and urinary tract infection. LABORATORY: CBC on admission showed white count 10,800. Prior to discharge, it was 8,100. Hemoglobin 11.1, hematocrit 13.9 at discharge. Platelet count 118,000. Differential was without a left shift. Chemistries on admission showed sodium 133. Prior to discharge, it had normalized to 135. Potassium was 2.8 on admission and at discharge was 3.1. BUN 22, creatinine 1.12 at discharge. Magnesium 1.5. After replacement and at discharge, it was 1.8. He did have a BNP that was elevated at 1330 and showing no chronic signs of exacerbation of congestive heart failure. TSH and T4 levels were normal. Urinalysis did show a large amount of blood, small amount of leukocyte esterase with too numerous to count RBCs, 3 to 5 WBCs, no epithelials and 1+ bacteria from Adams catheter specimen that was chronically in place prior to admission. MICROBIOLOGY: Urine culture pending with preliminary showing greater than 100 colony count gram negative bacilli. RADIOLOGY: Chest x-ray per radiologic interpretation showed interstitial changes almost completely resolved compared to imaging on 03/29/19. HOSPITAL COURSE: Mr. Farrar was admitted from the Emergency Room for initiation of treatment of urinary tract infection secondary to previously placed indwelling Adams catheter. The Adams catheter was replaced with a new catheter. He was initiated on antibiotic therapy in the Emergency Room with Rocephin and continued through hospitalization. Prior to discharge, he was transitioned to oral ciprofloxacin. The patient was back to baseline mental status according to his . The patient was actually ambulating in the hallways without any difficulty utilizing a walker and was at baseline physical levels. It was felt that the patient had clinically improved well enough overnight that he could continue with outpatient management with oral antibiotic therapy. PLAN: Mr. Farrar was discharged on 04/30/19 and returned back to [facility]. He was to resume his previous medications as prior to hospitalization and told to return to the hospital should he have any worsening symptoms. He will be seen in followup by Dr. Nichole at the custodial within the next 5 to 7 days. Diet at discharge was normal diet as tolerated. Activities per physical therapy. Wound management as per physical therapy. MEDICATIONS AT DISCHARGE: 1. Ciprofloxacin 500 mg twice daily for 7 days. We will await final culture results and adjust antibiotics as needed. DISPOSITION: The patient was [facility] to [facility] facility. CONDITION AT DISCHARGE: The patient was stable and improved. #[id number] [facility]
[2019-05-01] MEDS ORDERED: ATORVASTATIN 20 MG TAB PO SCH (21:00)
== END 2019-04-30 15:00 | disposition home or self-care (01) ==
LOC: ER 10:36 → INTOOBSV 17:14 → MS 17:14
PROVIDERS: ADMIT Nurse Practitioner Family; ATTEND Nurse Practitioner Family
DX: T83.511A Infection and inflammatory reaction due to indwelling urethral catheter, initial encounter (principal); N39.0 Urinary tract infection, site not specified; B96.89 Other specified bacterial agents as the cause of diseases classified elsewhere; R41.82 Altered mental status, unspecified; E87.1 Hypo-osmolality and hyponatremia; E83.42 Hypomagnesemia; E87.8 Other disorders of electrolyte and fluid balance, not elsewhere classified; E87.6 Hypokalemia; R31.0 Gross hematuria; I48.2 Chronic atrial fibrillation; F03.90 Unspecified dementia, unspecified severity, without behavioral disturbance, psychotic disturbance, mood disturbance, and anxiety; L89.152 Pressure ulcer of sacral region, stage 2; I25.10 Atherosclerotic heart disease of native coronary artery without angina pectoris; E03.9 Hypothyroidism, unspecified; I11.0 Hypertensive heart disease with heart failure; I50.9 Heart failure, unspecified; K21.9 Gastro-esophageal reflux disease without esophagitis; Z79.01 Long term (current) use of anticoagulants; Z79.890 Hormone replacement therapy; Z79.1 Long term (current) use of non-steroidal anti-inflammatories (NSAID); Z79.82 Long term (current) use of aspirin; Z79.891 Long term (current) use of opiate analgesic; Z79.899 Other long term (current) drug therapy; Z95.0 Presence of cardiac pacemaker; Z95.1 Presence of aortocoronary bypass graft; Z90.49 Acquired absence of other specified parts of digestive tract
CPT/HCPCS: 96361; 96366; 96367; 96365; 96375; J0282; J7060; J3480; J7030; J7050 ×2; J3475; 80048; 82553; 80053; 87086; 36415 ×4; 87077; 87186; 81001; 85025 ×2; 82550; 83735 ×2; 84100; 84443; 84436; 84484; 83880; 71045; 94760 ×2; 99285; 93005 ×2; G0378

== ENCOUNTER 2019-05-23 18:52 | Emergency (ER) | payer MEDICARE, OTHER ==
--- NOTE | 2019-05-23 19:53 | RAD ---
EXAM: XR Abdomen 2 Views With XR Chest CLINICAL HISTORY: jerking mvt, edema, known uti TECHNIQUE: Frontal view of the chest, frontal view of the abdomen/pelvis and upright or decubitus view of the abdomen. COMPARISON: No relevant prior studies available. FINDINGS: Limitations: None. Lungs: Chronic appearing interstitial scarring noted. Pleural space: Unremarkable. No pneumothorax. Heart: Cardiomegaly. Mediastinum: Unremarkable. Intraperitoneal space: No free air. Gastrointestinal tract: Moderate amount of stool throughout the colon. There is aeration of small bowel without distention. Organs: Gallstone. Bones/joints: Degenerative changes present in the spine. Vasculature: Atherosclerotic calcification present. Tubes, lines and devices: Cardiac pacing wires in the right atrium and ventricle are intact. IMPRESSION: 1. Nonspecific, nonobstructive intestinal gas pattern. 2. Cholelithiasis. Electronically signed by: Maryjo Cantu MD 05/23/2019 7:52 PM CDT
[2019-05-23] MEDS ORDERED: FUROSEMIDE 40 MG TAB PO ONE (20:39)
[2019-05-23] MEDS ORDERED: MAGNESIUM HYDROXIDE 30 ML UD PO ONE (20:39)
[2019-05-23 20:52] VITALS: TEMP 99.2
--- NOTE | 2019-05-23 21:21 | ED.PDOC ---
History of Present Illness - General Chief Complaint: Problem Stated Complaint: Current UTI, low grade temp and shaking Time Seen by Provider: 05/23/19 19:01 Source: patient Exam Limitations: no limitations - History of Present Illness Initial Comments: the patient is an 89-year-old male presenting to the emergency room secondary to concerns over a few jerking episodes this afternoon. No altered mental status. No evidence of pain with these episodes. He is also been having some constipation and he has been having some increased swelling in his bilateral lower extremities. No shortness of breath or chest pain. The patient was changed over to Bactrim yesterday from ciprofloxacin based on culture results. He does have a chronic indwelling catheter. This makes him have the sensation that he needs to. All the time. He has had issues with constipation and impaction in the past. He appears to be resting comfortably currently. No further jerking episodes have occurred since his arrival here. Timing/Duration: 4-6 hours Severity: mild Improving Factors: nothing Worsening Factors: nothing Associated Symptoms: denies symptoms Allergies/Adverse Reactions: Allergies NO KNOWN ALLERGY Allergy (Verified 05/23/19 19:16) Home Medications: Ambulatory Orders Amiodarone HCl [Pacerone] 200 mg PO BEDTIME 06/24/16 Aspirin [Aspirin EC] 81 mg PO DAILY 06/24/16 Finasteride [Proscar] 5 mg PO BEDTIME 06/24/16 Furosemide [Lasix] 20 mg PO DAILY 06/24/16 Metoprolol Succinate [Metoprolol Succinate ER] 50 mg PO BEDTIME 06/24/16 Multiple Vitamins W/ Minerals [Multi For Him 50+] 1 tab PO DAILY 06/24/16 Potassium Chloride [K-Tab] 20 meq PO DAILY 06/24/16 Levothyroxine Sodium [Synthroid] 100 mcg PO BEDTIME 06/29/16 Atorvastatin Calcium [Lipitor] 20 mg PO DAILY 02/08/18 Pantoprazole Tablet [Protonix] 40 mg PO DAILY 02/08/18 Apixaban [Eliquis] 2.5 mg PO BID #30 tab 02/11/18 Meloxicam [Mobic] 7.5 mg PO DAILY 03/09/19 Metolazone 2.5 mg PO DAILY 03/09/19 Sacubitril-Valsartan [Entresto 24-26 mg] 1 tab PO BID 03/09/19 Acetaminophen [Tylenol] 650 mg PO .Q4H PRN 03/29/19 Belladonna Alkaloids & Opium [Belladonna/Opium 16.2-30 mg] 1 sup ME BID PRN 03/29/19 Bisacodyl [Dulcolax] 10 mg PO Q12HR PRN 03/29/19 Loratadine [Claritin] 10 mg PO DAILY 03/29/19 Polyethylene Glycol 3350 [Miralax] 17 gm PO DAILY 03/29/19 Saline [Nasal Moist] 0.65 % NA .Q3H PRN 03/29/19 Senna/Docusate Tab [Senokot-S] 2 ea PO BID 03/29/19 Senna/Docusate Tab [Senokot-S] 2 ea PO PRN PRN 03/29/19 Simethicone 80 mg PO PRN PRN 03/29/19 Tamsulosin 0.4 mg PO BID 03/29/19 Tramadol HCl 50 mg PO Q4H PRN #30 tab 04/02/19 Ascorbic Acid [Sm Vitamin C 500 mg] 1 chw PO DAILY 04/29/19 Ketoconazole Cream [Nizoral Cream] 2 % TOP BID 04/29/19 Lactobacillus [Acidophilus] 2 cap PO BID 04/29/19 Magnesium Hydroxide [Milk Of Magnesia] 30 ml PO PRN PRN 04/29/19 Nystatin-Triamcin Cream 10,000 unit TOP TID 04/29/19 Pro-Stat Awc 30 ml PO DAILY 04/29/19 Zinc Sulfate 220 mg PO DAILY 04/29/19 Ciprofloxacin [Cipro] 500 mg PO BID #14 tab 04/30/19 Review of Systems - Review of Systems Constitutional: States: no symptoms reported EENTM: States: no symptoms reported Respiratory: States: no symptoms reported Cardiology: States: no symptoms reported Gastrointestinal/Abdominal: States: see HPI Genitourinary: States: see HPI Musculoskeletal: States: no symptoms reported Skin: States: no symptoms reported - the patient does have a healing decubitus ulcer. Neurological: States: see HPI Endocrine: States: no symptoms reported All other Systems: No Change from Baseline Past Medical History (General) - Patient Medical History Hx Seizures: No Hx Stroke: Yes Hx Dementia: Yes Hx Asthma: No Hx of COPD: Yes Hx Cardiac Disorders: Yes Hx Congestive Heart Failure: Yes Hx Pacemaker: Yes Hx Hypertension: Yes Hx Thyroid Disease: Yes Hx Diabetes: No Hx Gastroesophageal Reflux: Yes Hx Cancer: No Hx MRSA: No Surgical History: coronary bypass surgery, pacemaker, other - Vaccination History Hx Tetanus, Diphtheria Vaccination: Yes Hx Influenza Vaccination: Yes Hx Pneumococcal Vaccination: Yes - Social History Hx Tobacco Use: Yes Hx Alcohol Use: Yes Hx Substance Use: No Hx Substance Use Treatment: No Hx Depression: No - Female History Patient is a Female of Child Bearing Age (10 -59 yrs old): No Patient : No Family Medical History - Family History Father Family History: Unknown Living Status: Physical Exam - Physical Exam General Appearance: Alert, Comfortable, No apparent distress Eye Exam: bilateral normal Ears, Nose, Throat: hearing grossly normal, normal ENT inspection Neck: full range of motion, supple Respiratory: lungs clear, normal breath sounds, no respiratory distress, no accessory muscle use Cardiovascular/Chest: normal peripheral pulses, regular rate, rhythm, other - 2+ edema bilateral lower extremities. 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 He has not really had these since his arrival here. It is possible that this may be a side effect of the Bactrim. However given the multidrug resistance of the pathogen giving him a urinary tract infection, he should continue the Bactrim for a full 10 day course for full eradication as other medication options are extremely limited and early discontinuation may simply lead to additional resistance. He does appear to have a mild CHF exacerbation given the peripheral edema. He was given a dose of Lasix here tonight. This does need to be followed as an outpatient. Additionally he does have significant constipation and was given a dose of milk of magnesia here. He is going to be written for GoLYTELY to be taken tomorrow or the next day in order to get cleaned out before he has a full fecal impaction episode complicating his care. Continue care for his decubitus ulcer. Adams catheter should be changed out at the facility a few days. Keep follow-up with facility doctor before the weekend. ER warnings were given. - Results/Orders Results/Orders: Laboratory Tests 05/23/19 05/23/19 05/23/19 19:55 19:55 20:10 WBC 6.5 RBC 3.84 L Hgb 12.3 L Hct 35.7 L MCV 93.1 MCH 32.1 H MCHC 34.5 RDW 16.3 H Plt Count 159 MPV 7.3 L Absolute Neuts (auto) 3.80 Absolute Lymphs (auto) 1.40 Absolute Monos (auto) 0.90 H Absolute Eos (auto) 0.30 Absolute Basos (auto) 0.10 Neutrophils % 58.6 Lymphocytes % 21.7 Monocytes % 13.9 H Eosinophils % 4.9 Basophils % 0.9 Sodium 132 L Potassium 3.6 Chloride 96 L Carbon Dioxide 26 Anion Gap 13.6 BUN 23 H Creatinine 1.28 BUN/Creatinine Ratio 18.0 Random Glucose 103 Serum Osmolality 268.5 L Calcium 8.7 Magnesium 1.7 L Total Bilirubin 0.7 AST 44 H ALT 31 Alkaline Phosphatase 80 Creatine Kinase 74 CK-MB (CK-2) 1.4 CK-MB (CK-2) % Not Reportable Troponin I < 0.02 B-Natriuretic Peptide 763.0 H* Serum Total Protein 7.2 Albumin 3.4 Globulin 3.8 H Albumin/Globulin Ratio 0.9 L TSH 1.39 Urine Color Yellow Urine Appearance Cloudy Urine pH 7.0 Ur Specific [place] 1.020 Urine Protein Trace Urine Glucose (UA) Negative Urine Ketones Negative Urine Blood Moderate H Urine Nitrite Negative Urine Bilirubin Negative Urine Urobilinogen 0.2 Ur Leukocyte Esterase Small H Urine RBC >50 H Urine WBC 10-20 H Ur Epithelial Cells 0 Amorphous Sediment Trace Urine Bacteria Rare acute abdominal series shows constipation but no overt fluid overload. Departure - Departure Clinical Impression: Peripheral edema Catheter-associated urinary tract infection Qualifiers: Indwelling urinary catheter type: indwelling urethral catheter Encounter type: subsequent encounter Qualified Code(s): T83.511D - Infection and inflammatory reaction due to indwelling urethral catheter, subsequent encounter; N39.0 - Urinary tract infection, site not specified Constipation Qualifiers: Constipation type: drug induced constipation Qualified Code(s): K59.03 - Drug induced constipation Disposition: Discharge to SNF Condition: Fair Departure Forms: ED Discharge - Pt. Copy, Patient Portal Self Enrollment Instructions: DI for Urinary Tract Infection (UTI) Diet: other - high-fiber diet Activity: increase activity as tolerated Referrals: Jonathan Nichole MD [Primary Care Provider] - 1-5 Days Home Medications: Ambulatory Orders Amiodarone HCl [Pacerone] 200 mg PO BEDTIME 06/24/16 Aspirin [Aspirin EC] 81 mg PO DAILY 06/24/16 Finasteride [Proscar] 5 mg PO BEDTIME 06/24/16 Furosemide [Lasix] 20 mg PO DAILY 06/24/16 Metoprolol Succinate [Metoprolol Succinate ER] 50 mg PO BEDTIME 06/24/16 Multiple Vitamins W/ Minerals [Multi For Him 50+] 1 tab PO DAILY 06/24/16 Potassium Chloride [K-Tab] 20 meq PO DAILY 06/24/16 Levothyroxine Sodium [Synthroid] 100 mcg PO BEDTIME 06/29/16 Atorvastatin Calcium [Lipitor] 20 mg PO DAILY 02/08/18 Pantoprazole Tablet [Protonix] 40 mg PO DAILY 02/08/18 Apixaban [Eliquis] 2.5 mg PO BID #30 tab 02/11/18 Meloxicam [Mobic] 7.5 mg PO DAILY 03/09/19 Metolazone 2.5 mg PO DAILY 03/09/19 Sacubitril-Valsartan [Entresto 24-26 mg] 1 tab PO BID 03/09/19 Acetaminophen [Tylenol] 650 mg PO .Q4H PRN 03/29/19 Belladonna Alkaloids & Opium [Belladonna/Opium 16.2-30 mg] 1 sup ME BID PRN 03/29/19 Bisacodyl [Dulcolax] 10 mg PO Q12HR PRN 03/29/19 Loratadine [Claritin] 10 mg PO DAILY 03/29/19 Polyethylene Glycol 3350 [Miralax] 17 gm PO DAILY 03/29/19 Saline [Nasal Moist] 0.65 % NA .Q3H PRN 03/29/19 Senna/Docusate Tab [Senokot-S] 2 ea PO BID 03/29/19 Senna/Docusate Tab [Senokot-S] 2 ea PO PRN PRN 03/29/19 Simethicone 80 mg PO PRN PRN 03/29/19 Tamsulosin 0.4 mg PO BID 03/29/19 Tramadol HCl 50 mg PO Q4H PRN #30 tab 04/02/19 Ascorbic Acid [Sm Vitamin C 500 mg] 1 chw PO DAILY 04/29/19 Ketoconazole Cream [Nizoral Cream] 2 % TOP BID 04/29/19 Lactobacillus [Acidophilus] 2 cap PO BID 04/29/19 Magnesium Hydroxide [Milk Of Magnesia] 30 ml PO PRN PRN 04/29/19 Nystatin-Triamcin Cream 10,000 unit TOP TID 04/29/19 Pro-Stat Awc 30 ml PO DAILY 04/29/19 Zinc Sulfate 220 mg PO DAILY 04/29/19 Ciprofloxacin [Cipro] 500 mg PO BID #14 tab 04/30/19 Additional Instructions: the patient is an 89-year-old male presenting to the emergency room secondary to what appears to be transient clonic episodes. He has not really had these since his arrival here. It is possible that this may be a side effect of the Bactrim. However given the multidrug resistance of the pathogen giving him a urinary tract infection, he should continue the Bactrim for a full 10 day course for full eradication as other medication options are extremely limited and early discontinuation may simply lead to additional resistance. He does appear to have a mild CHF exacerbation given the peripheral edema. He was given a dose of Lasix here tonight. This does need to be followed as an outpatient. Additionally he does have significant constipation and was given a dose of milk of magnesia here. He is going to be written for GoLYTELY to be taken tomorrow or the next day in order to get cleaned out before he has a full fecal impaction episode complicating his care. Continue care for his decubitus ulcer. Adams catheter should be changed out at the facility a few days. Keep follow-up with facility doctor before the weekend. ER warnings were given.
[2019-05-23 21:41] VITALS: BP 105/55; O2SAT 97
== END 2019-05-23 21:40 ==
LOC: ER 18:52
DX: T83.511D Infection and inflammatory reaction due to indwelling urethral catheter, subsequent encounter (principal); N39.0 Urinary tract infection, site not specified; K59.03 Drug induced constipation; R60.0 Localized edema; F03.90 Unspecified dementia, unspecified severity, without behavioral disturbance, psychotic disturbance, mood disturbance, and anxiety; J44.9 Chronic obstructive pulmonary disease, unspecified; I50.9 Heart failure, unspecified; I11.0 Hypertensive heart disease with heart failure; E07.9 Disorder of thyroid, unspecified; K21.9 Gastro-esophageal reflux disease without esophagitis; Z95.0 Presence of cardiac pacemaker; Z86.73 Personal history of transient ischemic attack (TIA), and cerebral infarction without residual deficits; Z79.899 Other long term (current) drug therapy; Z87.891 Personal history of nicotine dependence; Z79.82 Long term (current) use of aspirin

== ENCOUNTER → 2019-05-28 | Outpatient (CLI) | payer MEDICARE, OTHER | LOC: GOCC 10:50 | PROVIDERS: ATTEND Family Medicine | DX: R30.0 Dysuria (principal); R41.82 Altered mental status, unspecified ==

== ENCOUNTER 2019-05-30 13:40 | Emergency (ER) | payer MEDICARE, OTHER ==
--- NOTE | 2019-05-30 14:41 | ED.PDOC ---
History of Present Illness - General Chief Complaint: Problem Time Seen by Provider: 05/30/19 14:34 Source: family Additional Information: 89 YEAR OLD MALE WITH HISTORY OF DEMENTIA MULLEN CATHETER FOR URINARY RETENTION BROUGHT TO THE ED FOR EVALUATION OF URINARY URGENCY HE FEELS HE NEEDS TO VOID HE WAS GIVEN A TRIAL WITHOUT CATHETER 3 DAYS AGO THAT FAILED THEREFORE HE HAD A MULLEN PLACED AGAIN THERE IS ALSO HISTORY OF HIM TUGGING THE MULLEN BUT NO REPORT OF HEMATURIA AT THE PRESENT TIME HE IS ON BACTRIM FOR A RECENT UTI PHYSICAL EXAM HE IS NOT IN ANY DISTRESS MULLEN IN PLACE DRAINAGE IS CLEAR NO GROSS HEMATURIA NOTED ABDOMEN IS SOFT NON TENDER NO FLANK TENDERNESS - History of Present Illness Timing/Duration: intermittent Quality: mild Onset Location: unknown Radiation: none Sexual intercourse history: not active Improving Factors: nothing Worsening Factors: nothing Associated Symptoms: denies symptoms Allergies/Adverse Reactions: Allergies NO KNOWN ALLERGY Allergy (Verified 05/23/19 19:16) Home Medications: Ambulatory Orders Amiodarone HCl [Pacerone] 200 mg PO BEDTIME 06/24/16 Aspirin [Aspirin EC] 81 mg PO DAILY 06/24/16 Finasteride [Proscar] 5 mg PO BEDTIME 06/24/16 Furosemide [Lasix] 20 mg PO DAILY 06/24/16 Metoprolol Succinate [Metoprolol Succinate ER] 50 mg PO BEDTIME 06/24/16 Multiple Vitamins W/ Minerals [Multi For Him 50+] 1 tab PO DAILY 06/24/16 Potassium Chloride [K-Tab] 20 meq PO DAILY 06/24/16 Levothyroxine Sodium [Synthroid] 100 mcg PO BEDTIME 06/29/16 Atorvastatin Calcium [Lipitor] 20 mg PO DAILY 02/08/18 Pantoprazole Tablet [Protonix] 40 mg PO DAILY 02/08/18 Apixaban [Eliquis] 2.5 mg PO BID #30 tab 02/11/18 Meloxicam [Mobic] 7.5 mg PO DAILY 03/09/19 Metolazone 2.5 mg PO DAILY 03/09/19 Sacubitril-Valsartan [Entresto 24-26 mg] 1 tab PO BID 03/09/19 Acetaminophen [Tylenol] 650 mg PO .Q4H PRN 03/29/19 Belladonna Alkaloids & Opium [Belladonna/Opium 16.2-30 mg] 1 sup [place] BID PRN 03/29/19 Bisacodyl [Dulcolax] 10 mg PO Q12HR PRN 03/29/19 Loratadine [Claritin] 10 mg PO DAILY 03/29/19 Polyethylene Glycol 3350 [Miralax] 17 gm PO DAILY 03/29/19 Saline [Nasal Moist] 0.65 % NA .Q3H PRN 03/29/19 Senna/Docusate Tab [Senokot-S] 2 ea PO BID 03/29/19 Senna/Docusate Tab [Senokot-S] 2 ea PO PRN PRN 03/29/19 Simethicone 80 mg PO PRN PRN 03/29/19 Tamsulosin 0.4 mg PO BID 03/29/19 Tramadol HCl 50 mg PO Q4H PRN #30 tab 04/02/19 Ascorbic Acid [Sm Vitamin C 500 mg] 1 chw PO DAILY 04/29/19 Ketoconazole Cream [Nizoral Cream] 2 % TOP BID 04/29/19 Lactobacillus [Acidophilus] 2 cap PO BID 04/29/19 Magnesium Hydroxide [Milk Of Magnesia] 30 ml PO PRN PRN 04/29/19 Nystatin-Triamcin Cream 10,000 unit TOP TID 04/29/19 Pro-Stat Awc 30 ml PO DAILY 04/29/19 Zinc Sulfate 220 mg PO DAILY 04/29/19 Ciprofloxacin [Cipro] 500 mg PO BID #14 tab 04/30/19 Review of Systems - Review of Systems Constitutional: States: no symptoms reported EENTM: States: no symptoms reported Cardiology: States: no symptoms reported Gastrointestinal/Abdominal: States: no symptoms reported Genitourinary: States: no symptoms reported Musculoskeletal: States: no symptoms reported Skin: States: no symptoms reported Neurological: States: no symptoms reported Endocrine: States: no symptoms reported Hematologic/Lymphatic: States: no symptoms reported Past Medical History (General) - Patient Medical History Hx Seizures: No Hx Stroke: Yes Hx Dementia: Yes Hx Asthma: No Hx of COPD: Yes Hx Cardiac Disorders: Yes Hx Congestive Heart Failure: Yes Hx Pacemaker: Yes Hx Hypertension: Yes Hx Thyroid Disease: Yes Hx Diabetes: No Hx Gastroesophageal Reflux: Yes Hx Cancer: No Hx MRSA: No - Vaccination History Hx Tetanus, Diphtheria Vaccination: Yes Hx Influenza Vaccination: Yes Hx Pneumococcal Vaccination: Yes - Social History Hx Tobacco Use: Yes Hx Alcohol Use: Yes Hx Substance Use: No Hx Substance Use Treatment: No Hx Depression: No - Female History Patient : No Family Medical History - Family History Father Family History: Unknown Living Status: Physical Exam - Physical Exam General Appearance: Alert Eyes, Ears, Nose, Throat Exam: PERRL/EOMI, normal ENT inspection, TMs normal, pharynx normal Neck: non-tender, full range of motion, supple Cardiovascular/Respiratory: regular rate, rhythm, no M/R/G, normal peripheral pulses Gastrointestinal/Abdominal: normal bowel sounds, non tender, soft, no organomegaly, no pulsatile mass Male Genital Exam: normal genitalia, no hernia Back Exam: normal inspection, no CVA tenderness, no vertebral tenderness Progress - Results/Orders Results/Orders: MULLEN WAS REPLACED WITH 16 FR BY THE RN WITHOUT DIFFICULTY HE HAD GOOD URINE FLOW THROUGH THE CATHETER HE IS ON BACTRIM FOR RECENT UTI WILL ADVICE TO CONTINUE AND FINISH THE COURSE OF ANTIBIOTICS Departure - Departure Clinical Impression: Dementia, Acute urinary retention, Urinary tract infection Time of Disposition: 14:45 Disposition: Discharge to Home or Self Care Condition: Good Departure Forms: ED Discharge - Pt. Copy, Patient Portal Self Enrollment Diet: resume usual diet Referrals: Jonathan Nichole MD [Primary Care Provider] - 1-2 Weeks Home Medications: Ambulatory Orders Amiodarone HCl [Pacerone] 200 mg PO BEDTIME 06/24/16 Aspirin [Aspirin EC] 81 mg PO DAILY 06/24/16 Finasteride [Proscar] 5 mg PO BEDTIME 06/24/16 Furosemide [Lasix] 20 mg PO DAILY 06/24/16 Metoprolol Succinate [Metoprolol Succinate ER] 50 mg PO BEDTIME 06/24/16 Multiple Vitamins W/ Minerals [Multi For Him 50+] 1 tab PO DAILY 06/24/16 Potassium Chloride [K-Tab] 20 meq PO DAILY 06/24/16 Levothyroxine Sodium [Synthroid] 100 mcg PO BEDTIME 06/29/16 Atorvastatin Calcium [Lipitor] 20 mg PO DAILY 02/08/18 Pantoprazole Tablet [Protonix] 40 mg PO DAILY 02/08/18 Apixaban [Eliquis] 2.5 mg PO BID #30 tab 02/11/18 Meloxicam [Mobic] 7.5 mg PO DAILY 03/09/19 Metolazone 2.5 mg PO DAILY 03/09/19 Sacubitril-Valsartan [Entresto 24-26 mg] 1 tab PO BID 03/09/19 Acetaminophen [Tylenol] 650 mg PO .Q4H PRN 03/29/19 Belladonna Alkaloids & Opium [Belladonna/Opium 16.2-30 mg] 1 sup [place] BID PRN 03/29/19 Bisacodyl [Dulcolax] 10 mg PO Q12HR PRN 03/29/19 Loratadine [Claritin] 10 mg PO DAILY 03/29/19 Polyethylene Glycol 3350 [Miralax] 17 gm PO DAILY 03/29/19 Saline [Nasal Moist] 0.65 % NA .Q3H PRN 03/29/19 Senna/Docusate Tab [Senokot-S] 2 ea PO BID 03/29/19 Senna/Docusate Tab [Senokot-S] 2 ea PO PRN PRN 03/29/19 Simethicone 80 mg PO PRN PRN 03/29/19 Tamsulosin 0.4 mg PO BID 03/29/19 Tramadol HCl 50 mg PO Q4H PRN #30 tab 04/02/19 Ascorbic Acid [Sm Vitamin C 500 mg] 1 chw PO DAILY 04/29/19 Ketoconazole Cream [Nizoral Cream] 2 % TOP BID 04/29/19 Lactobacillus [Acidophilus] 2 cap PO BID 04/29/19 Magnesium Hydroxide [Milk Of Magnesia] 30 ml PO PRN PRN 04/29/19 Nystatin-Triamcin Cream 10,000 unit TOP TID 04/29/19 Pro-Stat Awc 30 ml PO DAILY 04/29/19 Zinc Sulfate 220 mg PO DAILY 04/29/19 Ciprofloxacin [Cipro] 500 mg PO BID #14 tab 04/30/19
[2019-05-30 16:37] VITALS: TEMP 97
[2019-05-30 17:00] VITALS: BP 124/66; O2SAT 98
== END 2019-05-30 15:15 | disposition home or self-care (01) ==
LOC: ER 13:40
DX: N39.0 Urinary tract infection, site not specified (principal); R33.9 Retention of urine, unspecified; F03.90 Unspecified dementia, unspecified severity, without behavioral disturbance, psychotic disturbance, mood disturbance, and anxiety; J44.9 Chronic obstructive pulmonary disease, unspecified; I50.9 Heart failure, unspecified; K21.9 Gastro-esophageal reflux disease without esophagitis; E07.9 Disorder of thyroid, unspecified; I11.0 Hypertensive heart disease with heart failure; Z95.0 Presence of cardiac pacemaker; Z86.73 Personal history of transient ischemic attack (TIA), and cerebral infarction without residual deficits; Z87.891 Personal history of nicotine dependence; Z79.899 Other long term (current) drug therapy; Z79.82 Long term (current) use of aspirin; Z79.01 Long term (current) use of anticoagulants

== ENCOUNTER 2019-07-26 18:41 | Emergency (ER) | payer MEDICARE, OTHER | END 2019-07-26 19:25 | disposition left against medical advice (07) | LOC: ER 18:41 | DX: Z46.6 Encounter for fitting and adjustment of urinary device (principal); Z53.21 Procedure and treatment not carried out due to patient leaving prior to being seen by health care provider ==

== ENCOUNTER 2019-07-29 12:37 | Emergency (ER) | payer MEDICARE, OTHER ==
[2019-07-29] MEDS ORDERED: CEFEPIME 2 GM VIAL ONE (14:41)
[2019-07-29] MEDS ORDERED: SODIUM CHL 0.9% 50ML MIN-BAG+ 50 ML IVPB ONE (14:42)
[2019-07-29] MEDS: FUROSEMIDE INJ 40 MG/4 ML VIAL IV ONE (14:57)
[2019-07-29] MEDS: CEFEPIME 2 GM in SODIUM CHL 0.9% 50ML MIN-BAG+ 50 ML IVPB ONE (14:59)
[2019-07-29] MEDS: POTASSIUM CHLORIDE ELIXIR 20 MEQ/15 ML UD PO ONE (15:02)
--- NOTE | 2019-07-29 15:14 | CT ---
EXAM: CT Abdomen and Pelvis Without Intravenous Contrast CLINICAL HISTORY: The patient is 89 years old and is Male; fever, edema, perez removed 2 d ago, uti TECHNIQUE: Axial computed tomography images of the abdomen and pelvis without intravenous contrast. Sagittal and coronal reformatted images were created and reviewed. This CT exam was performed using one or more of the following dose reduction techniques: automated exposure control, adjustment of the mA and/or kV according to patient size, and/or use of iterative reconstruction technique. COMPARISON: CT abdomen pelvis from 03/09/2019 FINDINGS: LUNG BASES: Minimal dependent atelectasis in the lung bases. PLEURAL SPACE: Trace bilateral pleural effusions. ABDOMEN: LIVER: Unremarkable. No obvious liver masses appreciated on this non-contrast exam. GALLBLADDER AND BILE DUCTS: The gallbladder is partially contracted. Cholelithiasis is noted. No significant gallbladder wall thickening appreciated given gallbladder contraction. No biliary ductal dilatation visualized. PANCREAS: Unremarkable. No ductal dilation. SPLEEN: Unremarkable. No splenomegaly. ADRENALS: Unremarkable. No adrenal nodules or masses identified. KIDNEYS AND URETERS: There is bilateral perinephric stranding which is slightly increased compared to the prior exam. Punctate foci of calcification in the left kidney are suggestive of vascular calcifications. There is no hydronephrosis. No ureteral stones visualized. STOMACH AND BOWEL: Small duodenal diverticulum. No evidence of bowel obstruction. No significant bowel wall thickening. Colonic diverticulosis is noted, without significant associated inflammatory changes to suggest diverticulitis. Mild stranding visualized adjacent portion of the sigmoid colon is favored to represent extension of perinephric stranding. PELVIS: APPENDIX: No findings to suggest acute appendicitis. BLADDER: There is urinary bladder wall thickening with mild adjacent stranding. This is suspicious for cystitis. No bladder stones. REPRODUCTIVE: Calcifications visualized in the region of the prostate. ABDOMEN and PELVIS: INTRAPERITONEAL SPACE: No free air. No abscess. BONES/JOINTS: Degenerative changes of the spine. No acute fracture. No dislocation. SOFT TISSUES: Small fat-containing umbilical hernia. There is mild subcutaneous stranding within the anterior abdominal wall at the level of the umbilicus. Small fat-containing right inguinal hernia. There is also mild subcutaneous stranding about the bilateral hips. VASCULATURE: Atherosclerotic calcifications are noted. No aortic aneurysm. LYMPH NODES: No significant lymph node enlargement. IMPRESSION: 1. Urinary bladder wall thickening with mild adjacent stranding. This is suspicious for cystitis. No bladder stones. 2. Slight interval increase in bilateral perinephric stranding. There is no hydronephrosis. Pyelonephritis is not excluded on this exam. 3. Colonic diverticulosis without definite evidence of diverticulitis. Electronically signed by: Anahi Villegas MD 07/29/2019 3:13 PM CDT
[2019-07-29] MEDS: IBUPROFEN 200 MG TAB PO ONE (15:22)
[2019-07-29] MEDS ORDERED: levoFLOXacin 500MG IV 100 ML IVPB ONE (15:37)
[2019-07-29] MEDS: levoFLOXacin 500MG IV 500 MG in PREMIX BAG 1 BAG IVPB ONE (15:44)
[2019-07-29] MEDS ORDERED: LIDOCAINE HCL 2% (MOUTH-THROAT) 15 ML UD ONE (15:45)
[2019-07-29] MEDS ORDERED: LIDOCAINE 2 % GEL 5 ML TUBE TOP ONE ×2 (16:05→16:16)
--- NOTE | 2019-07-29 16:36 | ED.PDOC ---
History of Present Illness - General Chief Complaint: Blood Pressure Problem Stated Complaint: low BP,fever Time Seen by Provider: 07/29/19 13:04 Source: patient - History of Present Illness Initial Comments: The patient is a 89-year-old male presenting to the emergency room by EMS secondary to fever up to 103 and recorded low blood pressures with systolics in the 80s at the [facility] this morning. The patient is also having increased swelling the last couple of days. Symptoms seem to have started or been triggered byhis Adams catheter being unable to be replaced a couple of days ago. It was time for a scheduled Adams catheter changed. They were unable to replace the one that came out. We have tried several times here to place Adams catheter and also been unable to get one placed. The patient is having some urine output but not very much. Weights have gone up significantly over the last 2 days in spite of continued diuretic use. He is not short of breath. He is alert and in his baseline mental status. He does have some suprapubic discomfort palpation. He is not hypotensive upon arrival here but is febrile even after the Tylenol given at the [facility]. It is reported that his urologist is Dr. Salazar. Timing/Duration: 24 hours Severity: moderate Improving Factors: nothing Worsening Factors: nothing Associated Symptoms: fever/chills, loss of appetite Allergies/Adverse Reactions: Allergies NO KNOWN ALLERGY Allergy (Verified 05/23/19 19:16) Home Medications: Ambulatory Orders Amiodarone HCl [Pacerone] 200 mg PO BEDTIME 06/24/16 Aspirin [Aspirin EC] 81 mg PO DAILY 06/24/16 Finasteride [Proscar] 5 mg PO BEDTIME 06/24/16 Furosemide [Lasix] 20 mg PO DAILY 06/24/16 Metoprolol Succinate [Metoprolol Succinate ER] 50 mg PO BEDTIME 06/24/16 Multiple Vitamins W/ Minerals [Multi For Him 50+] 1 tab PO DAILY 06/24/16 Potassium Chloride [K-Tab] 20 meq PO DAILY 06/24/16 Levothyroxine Sodium [Synthroid] 100 mcg PO BEDTIME 06/29/16 Atorvastatin Calcium [Lipitor] 20 mg PO DAILY 02/08/18 Pantoprazole Tablet [Protonix] 40 mg PO DAILY 02/08/18 Apixaban [Eliquis] 2.5 mg PO BID #30 tab 02/11/18 Meloxicam [Mobic] 7.5 mg PO DAILY 03/09/19 Metolazone 2.5 mg PO DAILY 03/09/19 Sacubitril-Valsartan [Entresto 24-26 mg] 1 tab PO BID 03/09/19 Acetaminophen [Tylenol] 650 mg PO .Q4H PRN 03/29/19 Belladonna Alkaloids & Opium [Belladonna/Opium 16.2-30 mg] 1 sup [place] BID PRN 03/29/19 Bisacodyl [Dulcolax] 10 mg PO Q12HR PRN 03/29/19 Loratadine [Claritin] 10 mg PO DAILY 03/29/19 Polyethylene Glycol 3350 [Miralax] 17 gm PO DAILY 03/29/19 Saline [Nasal Moist] 0.65 % NA .Q3H PRN 03/29/19 Senna/Docusate Tab [Senokot-S] 2 ea PO BID 03/29/19 Senna/Docusate Tab [Senokot-S] 2 ea PO PRN PRN 03/29/19 Simethicone 80 mg PO PRN PRN 03/29/19 Tamsulosin 0.4 mg PO BID 03/29/19 Tramadol HCl 50 mg PO Q4H PRN #30 tab 04/02/19 Ascorbic Acid [Sm Vitamin C 500 mg] 1 chw PO DAILY 04/29/19 Ketoconazole Cream [Nizoral Cream] 2 % TOP BID 04/29/19 Lactobacillus [Acidophilus] 2 cap PO BID 04/29/19 Magnesium Hydroxide [Milk Of Magnesia] 30 ml PO PRN PRN 04/29/19 Nystatin-Triamcin Cream 10,000 unit TOP TID 04/29/19 Pro-Stat Awc 30 ml PO DAILY 04/29/19 Zinc Sulfate 220 mg PO DAILY 04/29/19 Ciprofloxacin [Cipro] 500 mg PO BID #14 tab 04/30/19 Review of Systems - Review of Systems Constitutional: States: fever, malaise EENTM: States: no symptoms reported Respiratory: States: no symptoms reported Cardiology: States: no symptoms reported Gastrointestinal/Abdominal: States: abdominal pain Genitourinary: States: dysuria, other - Difficulty urinating Musculoskeletal: States: no symptoms reported Skin: States: no symptoms reported Neurological: States: see HPI - Chronic changes Endocrine: States: no symptoms reported All other Systems: No Change from Baseline Past Medical History (General) - Patient Medical History Hx Seizures: No Hx Stroke: No Hx Dementia: Yes Hx Asthma: No Hx of COPD: Yes Hx Cardiac Disorders: Yes - Pacemaker,Atrial fib Hx Congestive Heart Failure: Yes Hx Pacemaker: Yes Hx Hypertension: Yes Hx Thyroid Disease: Yes Hx Diabetes: No Hx Gastroesophageal Reflux: Yes Hx Renal Disease: - Urinary retention Hx Cancer: No Hx MRSA: No Surgical History: coronary bypass surgery, pacemaker - Vaccination History Hx Tetanus, Diphtheria Vaccination: Yes Hx Influenza Vaccination: - unknown Hx Pneumococcal Vaccination: Yes - Social History Hx Tobacco Use: No Hx Alcohol Use: Yes Hx Substance Use: No Hx Substance Use Treatment: No Hx Depression: No - Female History Patient : No Family Medical History - Family History Father Family History: Unknown Living Status: Physical Exam - Physical Exam General Appearance: Alert, No apparent distress Eye Exam: bilateral normal Ears, Nose, Throat: hearing grossly normal - Chronic bilateral decreased hearing loss, normal pharynx Neck: full range of motion, supple Respiratory: lungs clear, normal breath sounds, no respiratory distress, no accessory muscle use Cardiovascular/Chest: normal peripheral pulses, other - Regular rate, +3 edema to bilateral lower extremities. Peripheral Pulses: radial,right: 2+, radial,left: 2+ Gastrointestinal/Abdominal: non tender - Mild suprapubic discomfort, soft Back Exam: no CVA tenderness, no vertebral tenderness Extremity: normal range of motion, no calf tenderness, normal capillary refill, pedal edema Neurologic: treasury assistant II-XII nml as tested, alert, normal mood/affect, other - The patient does have chronic dementia but appears to be at his baseline mental status according to his . Skin Exam: normal color Comments: Vital Signs - 24 hr 07/29/19 07/29/19 07/29/19 13:21 14:47 15:00 Temperature 100.9 F H 101.1 F H Pulse Rate [ 94 H 95 H Right Brachial] Respiratory 20 20 16 Rate Blood Pressure 123/76 113/68 [Right Arm] O2 Sat by Pulse 95 95 Oximetry Progress - Progress Progress: 07/29/19 16:38 The patient is an 89-year-old male presenting to the emergency room secondary to [facility]. He has not been hypotensive since his arrival here. He does appear to have some septicemia likely coming from the urinary tract infection. He is being placed on Levaquin and cefepime here. Blood cultures have been performed. Urine cultures are being performed. He has received 1 dose of Lasix for the CHF exacerbation but urine output has not picked up dramatically. The patient does appear to at least have a significant urinary outflow limitation, likely making the urinary tract infection worse as well as a CHF exacerbation worse. We have tried to place a Adams catheter here and failed. I'm not performing further attempts due to the fact that the patient is on Eliquis and already has a little bit of bleeding from the attempt that we did. The patient is being transferred for urology evaluation to get his ladder draining better. This will hopefully allow for easier treatment of the CHF exacerbation and the septicemia. Acceptance for transfer is greatly appreciated. he does have some mild hypokalemia and has received a dose of potassium. He also has some mild hyponatremia that will need to be followed. giovani pride [phone] - Results/Orders Results/Orders: CT scan abdomen and pelvis shows bilateral perinephric stranding as well as some stranding around the bladder. See report for details. Chest x-ray report is still pending however I see no evidence of any overt infiltrate or pneumothorax or mass on the chest x-ray. Laboratory Tests 07/29/19 07/29/19 07/29/19 13:30 13:30 13:30 WBC 14.6 H RBC 3.77 L Hgb 11.7 L Hct 34.6 L MCV 92.0 MCH 31.2 H MCHC 33.9 RDW 14.2 Plt Count 200 MPV 7.4 Absolute Neuts (auto) 11.30 H Absolute Lymphs (auto) 1.50 Absolute Monos (auto) 1.60 H Absolute Eos (auto) 0.00 Absolute Basos (auto) 0.10 Neutrophils % 77.2 Lymphocytes % 10.5 L Monocytes % 11.2 H Eosinophils % 0.2 L Basophils % 0.9 PT 15.0 H INR 1.51 H PTT (SP) 28.5 Sodium 128 L Potassium 3.1 L Chloride 91 L Carbon Dioxide 24 Anion Gap 16.1 BUN 15 Creatinine 1.27 BUN/Creatinine Ratio 11.8 Random Glucose 105 Serum Osmolality 258.3 L Lactic Acid Calcium 8.8 Total Bilirubin 1.2 H AST 38 ALT 22 Alkaline Phosphatase 71 Creatine Kinase 74 CK-MB (CK-2) 1.0 CK-MB (CK-2) % Not Reportable Troponin I 0.02 B-Natriuretic Peptide 1030.0 H* Serum Total Protein 7.6 Albumin 3.5 Globulin 4.1 H Albumin/Globulin Ratio 0.9 L Amylase 49 Urine Color Urine Appearance Urine pH Ur Specific [place] Urine Protein Urine Glucose (UA) Urine Ketones Urine Blood Urine Nitrite Urine Bilirubin Urine Urobilinogen Ur Leukocyte Esterase Urine RBC Urine WBC Ur Epithelial Cells Urine Bacteria 07/29/19 07/29/19 13:30 14:10 WBC RBC Hgb Hct MCV MCH MCHC RDW Plt Count MPV Absolute Neuts (auto) Absolute Lymphs (auto) Absolute Monos (auto) Absolute Eos (auto) Absolute Basos (auto) Neutrophils % Lymphocytes % Monocytes % Eosinophils % Basophils % PT INR PTT (SP) Sodium Potassium Chloride Carbon Dioxide Anion Gap BUN Creatinine BUN/Creatinine Ratio Random Glucose Serum Osmolality Lactic Acid 1.5 Calcium Total Bilirubin AST ALT Alkaline Phosphatase Creatine Kinase CK-MB (CK-2) CK-MB (CK-2) % Troponin I B-Natriuretic Peptide Serum Total Protein Albumin Globulin Albumin/Globulin Ratio Amylase Urine Color Red Urine Appearance Cloudy Urine pH 6.0 Ur Specific [place] 1.025 Urine Protein 100 H Urine Glucose (UA) Negative Urine Ketones Trace Urine Blood Large H Urine Nitrite Negative Urine Bilirubin Small H Urine Urobilinogen 1.0 Ur Leukocyte Esterase Small H Urine RBC Tntc H Urine WBC Obscured by rbc's H Ur Epithelial Cells Obscured by rbc's Urine Bacteria 2+ H Departure - Departure Clinical Impression: Septicemia, Pyelonephritis, Hyponatremia, Hypokalemia CHF exacerbation Qualifiers: Heart failure type: combined systolic and diastolic Qualified Code(s): I50.43 - Acute on chronic combined systolic (congestive) and diastolic (congestive) heart failure Disposition: Transfer to Hospital Condition: Serious Departure Forms: ED Discharge - Pt. Copy, Patient Portal Self Enrollment Referrals: Jonathan Nichole MD [Primary Care Provider] - 1-2 Weeks Home Medications: Ambulatory Orders Amiodarone HCl [Pacerone] 200 mg PO BEDTIME 06/24/16 Aspirin [Aspirin EC] 81 mg PO DAILY 06/24/16 Finasteride [Proscar] 5 mg PO BEDTIME 06/24/16 Furosemide [Lasix] 20 mg PO DAILY 06/24/16 Metoprolol Succinate [Metoprolol Succinate ER] 50 mg PO BEDTIME 06/24/16 Multiple Vitamins W/ Minerals [Multi For Him 50+] 1 tab PO DAILY 06/24/16 Potassium Chloride [K-Tab] 20 meq PO DAILY 06/24/16 Levothyroxine Sodium [Synthroid] 100 mcg PO BEDTIME 06/29/16 Atorvastatin Calcium [Lipitor] 20 mg PO DAILY 02/08/18 Pantoprazole Tablet [Protonix] 40 mg PO DAILY 02/08/18 Apixaban [Eliquis] 2.5 mg PO BID #30 tab 02/11/18 Meloxicam [Mobic] 7.5 mg PO DAILY 03/09/19 Metolazone 2.5 mg PO DAILY 03/09/19 Sacubitril-Valsartan [Entresto 24-26 mg] 1 tab PO BID 03/09/19 Acetaminophen [Tylenol] 650 mg PO .Q4H PRN 03/29/19 Belladonna Alkaloids & Opium [Belladonna/Opium 16.2-30 mg] 1 sup [place] BID PRN 03/29/19 Bisacodyl [Dulcolax] 10 mg PO Q12HR PRN 03/29/19 Loratadine [Claritin] 10 mg PO DAILY 03/29/19 Polyethylene Glycol 3350 [Miralax] 17 gm PO DAILY 03/29/19 Saline [Nasal Moist] 0.65 % NA .Q3H PRN 03/29/19 Senna/Docusate Tab [Senokot-S] 2 ea PO BID 03/29/19 Senna/Docusate Tab [Senokot-S] 2 ea PO PRN PRN 03/29/19 Simethicone 80 mg PO PRN PRN 03/29/19 Tamsulosin 0.4 mg PO BID 03/29/19 Tramadol HCl 50 mg PO Q4H PRN #30 tab 04/02/19 Ascorbic Acid [Sm Vitamin C 500 mg] 1 chw PO DAILY 04/29/19 Ketoconazole Cream [Nizoral Cream] 2 % TOP BID 04/29/19 Lactobacillus [Acidophilus] 2 cap PO BID 04/29/19 Magnesium Hydroxide [Milk Of Magnesia] 30 ml PO PRN PRN 04/29/19 Nystatin-Triamcin Cream 10,000 unit TOP TID 04/29/19 Pro-Stat Awc 30 ml PO DAILY 04/29/19 Zinc Sulfate 220 mg PO DAILY 04/29/19 Ciprofloxacin [Cipro] 500 mg PO BID #14 tab 04/30/19 Transfer to Outside Facility - Transfer Information Decision to Transfer Date: 07/29/19 Decision to Transfer Time: 16:20 Reason for Transfer: required specialist not available Accepting Provider:: dr chavez Accepting Facility: [facility]
[2019-07-29 17:23] VITALS: BP 121/77; TEMP 100.3; O2SAT 97
== END 2019-07-29 17:34 | disposition short-term general hospital (02) ==
LOC: ER 12:37
DX: A41.9 Sepsis, unspecified organism (principal); N12 Tubulo-interstitial nephritis, not specified as acute or chronic; I50.43 Acute on chronic combined systolic (congestive) and diastolic (congestive) heart failure; E87.1 Hypo-osmolality and hyponatremia; E87.6 Hypokalemia; F03.90 Unspecified dementia, unspecified severity, without behavioral disturbance, psychotic disturbance, mood disturbance, and anxiety; J44.9 Chronic obstructive pulmonary disease, unspecified; I48.91 Unspecified atrial fibrillation; I11.0 Hypertensive heart disease with heart failure; E07.9 Disorder of thyroid, unspecified; K21.9 Gastro-esophageal reflux disease without esophagitis; Z79.01 Long term (current) use of anticoagulants; Z95.0 Presence of cardiac pacemaker; Z95.1 Presence of aortocoronary bypass graft; Z79.899 Other long term (current) drug therapy; Z79.82 Long term (current) use of aspirin
CPT/HCPCS: 36415; 74019; 74176; 80053; 81001; 82150; 82550; 82553; 83605; 83880; 84484; 85025; 85610; 85730; 87040; 87077; 87086; 87186; 87502; J0692; J1940; J1956; J7050

== ENCOUNTER → 2019-08-17 | Outpatient (CLI) | payer MEDICARE, OTHER | LOC: GOCC 23:49 | PROVIDERS: ATTEND Family Medicine | DX: R82.998 Other abnormal findings in urine (principal); R30.0 Dysuria ==

== ENCOUNTER 2019-08-27 16:45 | Emergency (ER) | payer MEDICARE, OTHER ==
--- NOTE | 2019-08-27 17:39 | RAD ---
EXAM DESCRIPTION: Chest,1 View CLINICAL HISTORY: edema COMPARISON: 29 April 2019 TECHNIQUE: AP portable chest FINDINGS: The lungs are clear. The heart is within range of normal. The patient is poststernotomy. A pacemaker with atrial and ventricular leads is seen in place. IMPRESSION: Unremarkable portable chest Electronically signed by: Jose Piedra MD 08/27/2019 5:38 PM [facility]
[2019-08-27] MEDS ORDERED: SPIRONOLACTONE 25 MG TAB PO ONE (18:03)
--- NOTE | 2019-08-27 18:10 | ED.PDOC ---
History of Present Illness - General Chief Complaint: General Stated Complaint: BLE swelling Time Seen by Provider: 08/27/19 16:56 Source: patient, family Exam Limitations: no limitations - the patient does have mild dementia - History of Present Illness Initial Comments: the patient is a 89-year-old male presenting to the emergency room secondary to increasing edema from yesterday, as well as some blood in his urine. He does have a chronic indwelling Adams catheter. It is draining well. It does appear to be blood tinged. He does take a potent blood thinner. He is feeling fine otherwise. He is not short of breath. He was up the better part of the night feeling like he was needing to urinate due to the blood in the urine. Again he does have an indwelling catheter. He is pleasant and cooperative. He does have moderate dementia. The information is coming from his . No evidence of overt infection. His primary care doctor just adjusted his water pill yesterday. Timing/Duration: unsure, 24 hours Severity: mild Improving Factors: nothing Worsening Factors: nothing Associated Symptoms: denies symptoms Allergies/Adverse Reactions: Allergies NO KNOWN ALLERGY Allergy (Verified 08/27/19 17:16) Home Medications: Ambulatory Orders Amiodarone HCl [Pacerone] 200 mg PO BEDTIME 06/24/16 Aspirin [Aspirin EC] 81 mg PO DAILY 06/24/16 Finasteride [Proscar] 5 mg PO BEDTIME 06/24/16 Furosemide [Lasix] 20 mg PO DAILY 06/24/16 Metoprolol Succinate [Metoprolol Succinate ER] 50 mg PO BEDTIME 06/24/16 Multiple Vitamins W/ Minerals [Multi For Him 50+] 1 tab PO DAILY 06/24/16 Potassium Chloride [K-Tab] 20 meq PO DAILY 06/24/16 Levothyroxine Sodium [Synthroid] 100 mcg PO BEDTIME 06/29/16 Atorvastatin Calcium [Lipitor] 20 mg PO DAILY 02/08/18 Pantoprazole Tablet [Protonix] 40 mg PO DAILY 02/08/18 Apixaban [Eliquis] 2.5 mg PO BID #30 tab 02/11/18 Acetaminophen [Tylenol] 650 mg PO .Q4H PRN 03/29/19 Bisacodyl [Dulcolax] 10 mg PO Q12HR PRN 03/29/19 Loratadine [Claritin] 10 mg PO DAILY 03/29/19 Polyethylene Glycol 3350 [Miralax] 17 gm PO DAILY 03/29/19 Senna/Docusate Tab [Senokot-S] 2 ea PO BID 03/29/19 Senna/Docusate Tab [Senokot-S] 2 ea PO PRN PRN 03/29/19 Simethicone 80 mg PO PRN PRN 03/29/19 Tamsulosin [Flomax] 0.4 mg PO BID #0 03/29/19 Lactobacillus [Acidophilus] 2 cap PO BID 04/29/19 Magnesium Hydroxide [Milk Of Magnesia] 30 ml PO PRN PRN 04/29/19 Nystatin-Triamcin Cream 10,000 unit TOP TID 04/29/19 Pro-Stat Awc 30 ml PO DAILY 04/29/19 Buspirone HCl 5 mg PO DAILY 08/27/19 Lubiprostone [Amitiza] 24 mcg PO DAILY 08/27/19 Magnesium 400 mg PO DAILY 08/27/19 Ondansetron HCl [Zofran] 4 mg PO Q4H PRN 08/27/19 Sacubitril-Valsartan [Entresto 49-51 mg] 1 tab PO BID 08/27/19 Spironolactone 25 mg PO DAILY #5 tab 08/27/19 Sulfamethoxazole-Trimethoprim [Bactrim Ds 800-160 mg] 1 tab PO BID 08/27/19 Review of Systems - Review of Systems Constitutional: States: no symptoms reported EENTM: States: no symptoms reported Respiratory: States: no symptoms reported Cardiology: States: no symptoms reported Gastrointestinal/Abdominal: States: no symptoms reported Genitourinary: States: see HPI Musculoskeletal: States: no symptoms reported Skin: States: see HPI Neurological: States: no symptoms reported Endocrine: States: no symptoms reported All other Systems: No Change from Baseline Past Medical History (General) - Patient Medical History Hx Seizures: No Hx Stroke: No Hx Dementia: Yes Hx Asthma: No Hx of COPD: Yes Hx Cardiac Disorders: Yes - ASHD, a fib Hx Congestive Heart Failure: Yes Hx Pacemaker: Yes Hx Hypertension: Yes Hx Thyroid Disease: Yes - Hypothyroidism Hx Diabetes: No Hx Gastroesophageal Reflux: - Hx diverticulitis Hx Renal Disease: - Urinary retention Hx Cancer: No Hx MRSA: No - Vaccination History Hx Tetanus, Diphtheria Vaccination: Yes Hx Influenza Vaccination: - unknown Hx Pneumococcal Vaccination: Yes - Social History Hx Tobacco Use: No Hx Alcohol Use: Yes Hx Substance Use: No Hx Substance Use Treatment: No Hx Depression: No - Activities of Daily Living Alf/Assisted Living (if applicable):: Felice Morton - Female History Patient : No Family Medical History - Family History Father Family History: Unknown Living Status: Physical Exam - Physical Exam General Appearance: Alert, Comfortable, No apparent distress Eye Exam: bilateral normal Ears, Nose, Throat: hearing grossly normal, normal ENT inspection Neck: full range of motion, supple Respiratory: lungs clear, normal breath sounds, no respiratory distress, no accessory muscle use Cardiovascular/Chest: normal peripheral pulses, other - regular rate. 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 the patient needs to hold his Eliquis for the next 4 days due to the bleeding. I would also recommend that the patient use compression stockings or Kin wraps to help control the edema on top of the diuretics. He is being placed in Kin wraps tonight but these need to be adjusted every 6 hours or so. He has been given 1 dose of spironolactone tonight and I'm going to write him for 5 days of spironolactone 25 mg daily. He needs to follow back up with his primary care doctor towards the end of the week. he is not having any respiratory difficulties. Edema is most likely due to being up going to the bathroom most of the night. ER warnings were given. 08/27/19 18:14 giovani pride [phone] - Results/Orders Results/Orders: chest x-ray was essentially clear of acute pathology. EKG shows a fairly regular rate at 93 bpm. It does appear to have a ventricular pacing spike. His EKG is consistent with previous EKGs. No obvious evidence of any acute ST elevation myocardial infarction compared to previous EKGs. Laboratory Tests 08/27/19 08/27/19 08/27/19 17:18 17:18 17:30 WBC 5.1 RBC 3.61 L Hgb 10.8 L Hct 33.1 L MCV 91.6 MCH 30.0 MCHC 32.7 L RDW 14.4 Plt Count 180 MPV 7.1 L Absolute Neuts (auto) 2.80 Absolute Lymphs (auto) 1.20 Absolute Monos (auto) 0.70 Absolute Eos (auto) 0.30 Absolute Basos (auto) 0.10 Neutrophils % 53.7 Lymphocytes % 24.3 Monocytes % 14.5 H Eosinophils % 6.3 H Basophils % 1.2 Sodium 129 L Potassium 4.2 Chloride 98 L Carbon Dioxide 23 Anion Gap 12.2 BUN 14 Creatinine 1.33 H BUN/Creatinine Ratio 10.5 Random Glucose 101 Serum Osmolality 259.6 L Calcium 8.9 Magnesium 1.8 Total Bilirubin 0.6 AST 32 ALT 20 Alkaline Phosphatase 62 Creatine Kinase 123 CK-MB (CK-2) 2.9 CK-MB (CK-2) % Not Reportable Troponin I < 0.02 B-Natriuretic Peptide 891.0 H* Serum Total Protein 7.2 Albumin 3.5 Globulin 3.7 H Albumin/Globulin Ratio 0.9 L TSH 1.58 Urine Color Red Urine Appearance Cloudy Urine pH 7.0 Ur Specific [place] 1.020 Urine Protein 100 H Urine Glucose (UA) Negative Urine Ketones Negative Urine Blood Large H Urine Nitrite Negative Urine Bilirubin Negative Urine Urobilinogen 1.0 Ur Leukocyte Esterase Trace H Urine RBC Tntc H Urine WBC Obscured by rbc's H Ur Epithelial Cells Obscured by rbc's Urine Bacteria Obscured by rbc's H Departure - Departure Clinical Impression: Dependent edema Hematuria Qualifiers: Hematuria type: gross Qualified Code(s): R31.0 - Gross hematuria Disposition: Discharge to SNF Condition: Fair Departure Forms: ED Discharge - Pt. Copy, Patient Portal Self Enrollment Diet: low salt diet Activity: increase activity as tolerated Referrals: Jonathan Nichole MD [Primary Care Provider] - 1-5 Days Prescriptions: Spironolactone 25 mg PO DAILY #5 tab Home Medications: Ambulatory Orders Amiodarone HCl [Pacerone] 200 mg PO BEDTIME 06/24/16 Aspirin [Aspirin EC] 81 mg PO DAILY 06/24/16 Finasteride [Proscar] 5 mg PO BEDTIME 06/24/16 Furosemide [Lasix] 20 mg PO DAILY 06/24/16 Metoprolol Succinate [Metoprolol Succinate ER] 50 mg PO BEDTIME 06/24/16 Multiple Vitamins W/ Minerals [Multi For Him 50+] 1 tab PO DAILY 06/24/16 Potassium Chloride [K-Tab] 20 meq PO DAILY 06/24/16 Levothyroxine Sodium [Synthroid] 100 mcg PO BEDTIME 06/29/16 Atorvastatin Calcium [Lipitor] 20 mg PO DAILY 02/08/18 Pantoprazole Tablet [Protonix] 40 mg PO DAILY 02/08/18 Apixaban [Eliquis] 2.5 mg PO BID #30 tab 02/11/18 Acetaminophen [Tylenol] 650 mg PO .Q4H PRN 03/29/19 Bisacodyl [Dulcolax] 10 mg PO Q12HR PRN 03/29/19 Loratadine [Claritin] 10 mg PO DAILY 03/29/19 Polyethylene Glycol 3350 [Miralax] 17 gm PO DAILY 03/29/19 Senna/Docusate Tab [Senokot-S] 2 ea PO BID 03/29/19 Senna/Docusate Tab [Senokot-S] 2 ea PO PRN PRN 03/29/19 Simethicone 80 mg PO PRN PRN 03/29/19 Tamsulosin [Flomax] 0.4 mg PO BID #0 03/29/19 Lactobacillus [Acidophilus] 2 cap PO BID 04/29/19 Magnesium Hydroxide [Milk Of Magnesia] 30 ml PO PRN PRN 04/29/19 Nystatin-Triamcin Cream 10,000 unit TOP TID 04/29/19 Pro-Stat Awc 30 ml PO DAILY 04/29/19 Buspirone HCl 5 mg PO DAILY 08/27/19 Lubiprostone [Amitiza] 24 mcg PO DAILY 08/27/19 Magnesium 400 mg PO DAILY 08/27/19 Ondansetron HCl [Zofran] 4 mg PO Q4H PRN 08/27/19 Sacubitril-Valsartan [Entresto 49-51 mg] 1 tab PO BID 08/27/19 Spironolactone 25 mg PO DAILY #5 tab 08/27/19 Sulfamethoxazole-Trimethoprim [Bactrim Ds 800-160 mg] 1 tab PO BID 08/27/19 Additional Instructions: the patient's a 89-year-old male presenting to emergency room secondary to increased edema as well as some hematuria in his Adams catheter. the patient needs to hold his Eliquis for the next 4 days due to the bleeding. I would also recommend that the patient use compression stockings or Kin wraps to help control the edema on top of the diuretics. He is being placed in Kin wraps tonight but these need to be adjusted every 6 hours or so. He has been given 1 dose of spironolactone tonight and I'm going to write him for 5 days of spironolactone 25 mg daily. He needs to follow back up with his primary care doctor towards the end of the week. he is not having any respiratory diffic ulties. Edema is most likely due to being up going to the bathroom most of the night. ER warnings were given.
[2019-08-27 18:29] VITALS: BP 137/80; TEMP 97.2; O2SAT 100
== END 2019-08-27 18:28 ==
LOC: ER 16:45
DX: R60.0 Localized edema (principal); R31.0 Gross hematuria; F03.90 Unspecified dementia, unspecified severity, without behavioral disturbance, psychotic disturbance, mood disturbance, and anxiety; J44.9 Chronic obstructive pulmonary disease, unspecified; I25.10 Atherosclerotic heart disease of native coronary artery without angina pectoris; I48.91 Unspecified atrial fibrillation; I50.9 Heart failure, unspecified; E03.9 Hypothyroidism, unspecified; I11.0 Hypertensive heart disease with heart failure; Z95.0 Presence of cardiac pacemaker; Z79.01 Long term (current) use of anticoagulants; Z79.899 Other long term (current) drug therapy; Z79.82 Long term (current) use of aspirin

== ENCOUNTER → 2019-10-11 | Outpatient (CLI) | payer MEDICARE, OTHER | LOC: GOCC 08:43 | PROVIDERS: ATTEND Family Medicine | DX: N39.0 Urinary tract infection, site not specified (principal); N31.9 Neuromuscular dysfunction of bladder, unspecified ==

== ENCOUNTER → 2019-11-02 | Outpatient (CLI) | payer MEDICARE, OTHER ==
--- NOTE | 2019-11-05 12:10 | RAD ---
EXAM DESCRIPTION: Chest,2 Views: CR/ CLINICAL HISTORY: 89 years Male abnormal sputum COMPARISON: Portable chest x-ray August 2019. TECHNIQUE: Two views. PA and Lateral. FINDINGS: Lungs: Moderate expansion. Perihilar peribronchial wall cuffing. Bilateral interstitial markings. No consolidation. Stable appearance compared to the prior study. Pleural spaces: No effusion or pneumothorax bilaterally. Heart: Mild cardiomegaly but unchanged. Numerous surgical clips. Pulmonary Vascularity: Not increased. Mediastinum: Sternotomy wires. Aorta: Atherosclerotic changes. Pacemaker stable position upper anterior lateral left chest. Bony Thorax/Spine: No acute bony thoracic abnormalities. Apparent compression deformity of the superior endplate of the T9 vertebra. IMPRESSION: Chronic decreased volume with interstitial markings and perihilar peribronchial wall cuffing. Consider chronic bronchitis without hyperinflation, emphysema and pulmonary fibrosis. Stable since August 2018. Pacemaker and pacing lead stable. Electronically signed by: Yonas Tai MD 11/05/2019 12:09 PM SITE MONITOR
== END ==
LOC: LAB.O 15:21
PROVIDERS: ATTEND Family Medicine
DX: R09.3 Abnormal sputum (principal); R91.8 Other nonspecific abnormal finding of lung field; Z95.0 Presence of cardiac pacemaker

== ENCOUNTER 2019-12-02 | Inpatient (IN) | payer MEDICARE, OTHER | END 2019-12-06 17:57 | DRG 292 | PROVIDERS: ADMIT Nurse Practitioner Family | DX: I11.0 Hypertensive heart disease with heart failure (principal); I48.20 Chronic atrial fibrillation, unspecified; N17.9 Acute kidney failure, unspecified; I50.43 Acute on chronic combined systolic (congestive) and diastolic (congestive) heart failure; I25.10 Atherosclerotic heart disease of native coronary artery without angina pectoris; D63.8 Anemia in other chronic diseases classified elsewhere; F03.90 Unspecified dementia, unspecified severity, without behavioral disturbance, psychotic disturbance, mood disturbance, and anxiety; E03.9 Hypothyroidism, unspecified; E66.9 Obesity, unspecified; Z79.01 Long term (current) use of anticoagulants; Z95.0 Presence of cardiac pacemaker; Z96.651 Presence of right artificial knee joint; Z79.82 Long term (current) use of aspirin; Z68.34 Body mass index [BMI] 34.0-34.9, adult ==

== ENCOUNTER 2020-02-05 20:35 | Emergency (ER) | payer MEDICARE, OTHER ==
[2020-02-05 21:20] VITALS: O2SAT 97
[2020-02-05] MEDS ORDERED: POTASSIUM CHLORIDE ELIXIR 20 MEQ/15 ML UD PO ONE (21:31)
[2020-02-05] MEDS ORDERED: SPIRONOLACTONE 25 MG TAB PO ONE (21:32)
--- NOTE | 2020-02-05 22:07 | ED.PDOC ---
History of Present Illness - General Chief Complaint: General Stated Complaint: low potassium Time Seen by Provider: 02/05/20 20:45 Source: patient Exam Limitations: clinical condition - History of Present Illness Initial Comments: The patient is an 89-year-old male presented emergency room secondary to having been found to have a low potassium at a check at the custodial. Potassium was around 3. It was rechecked here and found to be 2.9. As far as I can tell the patient is asymptomatic. He is in atrial fibrillation but that is not a new thing. Blood pressures are fine. No evidence of any muscle spasms. He does have dementia but no evidence of any symptoms from a low potassium. He does take Lasix which is likely source of the low potassium. He does have some peripheral edema but no evidence of difficulty with breathing. The edema is apparently longstanding. Timing/Duration: unsure Severity: mild Improving Factors: nothing Worsening Factors: nothing Associated Symptoms: denies symptoms Allergies/Adverse Reactions: Allergies NO KNOWN ALLERGY Allergy (Verified 08/27/19 17:16) Home Medications: Ambulatory Orders Amiodarone HCl [Pacerone] 200 mg PO DAILY 06/24/16 Aspirin [Aspirin EC] 81 mg PO DAILY 06/24/16 Finasteride [Proscar] 5 mg PO BEDTIME 06/24/16 Metoprolol Succinate [Metoprolol Succinate ER] 50 mg PO DAILY 06/24/16 Multiple Vitamins W/ Minerals [Multi For Him 50+] 1 tab PO DAILY 06/24/16 Potassium Chloride [K-Tab] 10 meq PO BID 06/24/16 Levothyroxine Sodium [Synthroid] 100 mcg PO DAILY@62906/29/16 Atorvastatin Calcium [Lipitor] 20 mg PO BEDTIME 02/08/18 Pantoprazole Tablet [Protonix] 40 mg PO DAILY@62902/08/18 Apixaban [Eliquis] 2.5 mg PO BID #30 tab 02/11/18 Acetaminophen [Tylenol] 650 mg PO Q4H PRN 03/29/19 Loratadine [Claritin] 10 mg PO DAILY 03/29/19 Senna/Docusate Tab [Senokot-S] 2 ea PO BID 03/29/19 Simethicone 80 mg PO Q6HR PRN 03/29/19 Tamsulosin [Flomax] 0.4 mg PO BID #0 03/29/19 Magnesium Hydroxide [Milk Of Magnesia] 30 ml PO Q24HR PRN 04/29/19 Nystatin-Triamcin Cream 10,000 unit TOP TID PRN 04/29/19 Ondansetron HCl [Zofran] 4 mg PO Q4H PRN 08/27/19 Sacubitril-Valsartan [Entresto 49-51 mg] 1 tab PO BID 08/27/19 Uti-Stat 30 ml PO DAILY 12/02/19 Furosemide Tab [Lasix Tab] 40 mg PO 0900,1700 tab 12/06/19 Potassium Chloride Tab [K-Dur] 20 meq PO BID #30 tab 02/05/20 Spironolactone 25 mg PO DAILY #10 tab 02/05/20 Review of Systems - Review of Systems Review of Systems: 02/05/20 22:07 Validity of review of systems is questionable due to dementia. He does seem to be able to answer most yes no questions fairly appropriately. Constitutional: States: no symptoms reported EENTM: States: no symptoms reported Respiratory: States: no symptoms reported Cardiology: States: no symptoms reported Gastrointestinal/Abdominal: States: no symptoms reported Genitourinary: States: no symptoms reported Musculoskeletal: States: no symptoms reported Skin: States: no symptoms reported Neurological: States: no symptoms reported - Chronic dementia issues Endocrine: States: no symptoms reported All other Systems: No Change from Baseline Past Medical History (General) - Patient Medical History Hx Seizures: No Hx Stroke: No Hx Dementia: Yes Hx Asthma: No Hx of COPD: Yes Hx Cardiac Disorders: Yes - ASHD, a fib Hx Congestive Heart Failure: Yes Hx Pacemaker: Yes Hx Hypertension: Yes Hx Thyroid Disease: Yes - Hypothyroidism Hx Diabetes: No Hx Gastroesophageal Reflux: - Hx diverticulitis Hx Renal Disease: - Urinary retention Hx Cancer: No Hx MRSA: No Surgical History: appendectomy, other - Vaccination History Hx Tetanus, Diphtheria Vaccination: Yes Hx Influenza Vaccination: Yes Hx Pneumococcal Vaccination: Yes - Social History Hx Tobacco Use: No Hx Alcohol Use: Yes Hx Substance Use: No Hx Substance Use Treatment: No Hx Depression: No Hx Physical Abuse: No Hx Emotional Abuse: No - Activities of Daily Living Penitentiary/Assisted Living (if applicable):: Fel[facility] - Female History Patient : No Family Medical History - Family History Father Family History: Unknown Living Status: Mother Family History: Unknown Living Status: Physical Exam - Physical Exam General Appearance: Alert, Anxious, No apparent distress Eye Exam: bilateral normal Ears, Nose, Throat: hearing grossly normal - Mild chronic bilateral hearing loss, normal pharynx Neck: non-tender, supple Respiratory: lungs clear, normal breath sounds, no respiratory distress, no accessory muscle use Cardiovascular/Chest: normal peripheral pulses, other - Regular rate but fairly regular rhythm Peripheral Pulses: radial,right: 2+, radial,left: 2+ Gastrointestinal/Abdominal: non tender, soft Rectal Exam: deferred Extremity: non-tender, no calf tenderness, normal capillary refill, pedal edema 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 He has been given 40 mEq of potassium chloride elixir. This should in general get his potassium up to around 3.3. The patient is going to be written to have his oral potassium increased to 20 mEq twice daily and I am also going to write him for 2 weeks of oral spironolactone to both help with the potassium and with the significant peripheral edema for which he is already taking Lasix. He does need to have a repeat potassium checked around Tuesday. He needs to follow-up with his primary care doctor around that time as well. ER warnings are given. giovani pride 747 - Results/Orders Results/Orders: Laboratory Results - last 24 hr 02/05/20 02/05/20 21:00 21:00 WBC 4.7 L RBC 3.90 L Hgb 11.2 L Hct 33.8 L MCV 86.8 MCH 28.7 MCHC 33.0 RDW 18.6 H Plt Count 182 MPV 7.2 L Absolute Neuts (auto) 2.90 Absolute Lymphs (auto) 1.00 Absolute Monos (auto) 0.60 Absolute Eos (auto) 0.20 Absolute Basos (auto) 0.00 Neutrophils % 62.1 Lymphocytes % 21.9 Monocytes % 11.8 H Eosinophils % 3.4 Basophils % 0.8 Sodium 139 Potassium 2.9 L Chloride 105 Carbon Dioxide 28 Anion Gap 8.9 L BUN 16 Creatinine 1.01 BUN/Creatinine Ratio 15.8 Random Glucose 105 Serum Osmolality 279.1 Calcium 8.7 Magnesium 1.8 TSH 1.74 EKG shows what appears to be essentially a paced rhythm with atrial fibrillation in the background. There is a longstanding left axis deviation with ventricular conduction delay of course. This is consistent with his previous EKGs. Departure - Departure Clinical Impression: Hypokalemia, Peripheral edema Disposition: Discharge to Home or Self Care Condition: Fair Departure Forms: ED Discharge - Pt. Copy, Patient Portal Self Enrollment Diet: low salt diet Activity: increase activity as tolerated Referrals: Jonathan Nichole MD [Primary Care Provider] - 1-2 Weeks Prescriptions: Potassium Chloride Tab [K-Dur] 20 meq PO BID #30 tab Spironolactone 25 mg PO DAILY #10 tab Home Medications: Ambulatory Orders Amiodarone HCl [Pacerone] 200 mg PO DAILY 06/24/16 Aspirin [Aspirin EC] 81 mg PO DAILY 06/24/16 Finasteride [Proscar] 5 mg PO BEDTIME 06/24/16 Metoprolol Succinate [Metoprolol Succinate ER] 50 mg PO DAILY 06/24/16 Multiple Vitamins W/ Minerals [Multi For Him 50+] 1 tab PO DAILY 06/24/16 Potassium Chloride [K-Tab] 10 meq PO BID 06/24/16 Levothyroxine Sodium [Synthroid] 100 mcg PO DAILY@62906/29/16 Atorvastatin Calcium [Lipitor] 20 mg PO BEDTIME 02/08/18 Pantoprazole Tablet [Protonix] 40 mg PO DAILY@62902/08/18 Apixaban [Eliquis] 2.5 mg PO BID #30 tab 02/11/18 Acetaminophen [Tylenol] 650 mg PO Q4H PRN 03/29/19 Loratadine [Claritin] 10 mg PO DAILY 03/29/19 Senna/Docusate Tab [Senokot-S] 2 ea PO BID 03/29/19 Simethicone 80 mg PO Q6HR PRN 03/29/19 Tamsulosin [Flomax] 0.4 mg PO BID #0 03/29/19 Magnesium Hydroxide [Milk Of Magnesia] 30 ml PO Q24HR PRN 04/29/19 Nystatin-Triamcin Cream 10,000 unit TOP TID PRN 04/29/19 Ondansetron HCl [Zofran] 4 mg PO Q4H PRN 08/27/19 Sacubitril-Valsartan [Entresto 49-51 mg] 1 tab PO BID 08/27/19 Uti-Stat 30 ml PO DAILY 12/02/19 Furosemide Tab [Lasix Tab] 40 mg PO 0900,1700 tab 12/06/19 Potassium Chloride Tab [K-Dur] 20 meq PO BID #30 tab 02/05/20 Spironolactone 25 mg PO DAILY #10 tab 02/05/20 Additional Instructions: The patient is an 89-year-old male presented emergency room secondary to hypokalemia found on a blood draw today at the custodial. He has been given 40 mEq of potassium chloride elixir. This should in general get his potassium up to around 3.3. The patient is going to be written to have his oral potassium increased to 20 mEq twice daily for 2 weeks and I am also going to write him for 10 days of oral spironolactone to both help with the potassium and with the significant peripheral edema for which he is already taking Lasix. He does need to have a repeat potassium checked around Tuesday. He needs to follow- up with his primary care doctor around that time as well. ER warnings are given.
[2020-02-05 22:19] VITALS: BP 150/84; TEMP 97.2
== END 2020-02-05 22:20 ==
LOC: ER 20:35
DX: E87.6 Hypokalemia (principal); R60.9 Edema, unspecified; I10 Essential (primary) hypertension; I48.91 Unspecified atrial fibrillation; I25.10 Atherosclerotic heart disease of native coronary artery without angina pectoris; I50.9 Heart failure, unspecified; Z95.0 Presence of cardiac pacemaker; Z79.899 Other long term (current) drug therapy; Z79.82 Long term (current) use of aspirin

== ENCOUNTER 2020-02-09 04:36 | Emergency (ER) | payer MEDICARE, OTHER ==
--- NOTE | 2020-02-09 05:36 | CT ---
CLINICAL HISTORY: fall with mild pain COMPARISON: None. TECHNIQUE: CT CERVICAL SPINE WITHOUT IV CONTRAST on 02/09/2020 4:44 AM CDT This exam was performed according to our departmental dose-optimization program, which includes automated exposure control, adjustment of the mA and/or kV according to patient size and/or use of iterative reconstruction technique. FINDINGS: There is no acute fracture. Alignment is anatomic. 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 There is severe narrowing of the C5-6 and C6-7 discs. Vertebral body heights are preserved. Soft tissues are unremarkable. IMPRESSION: No acute fracture or subluxation. Electronically signed by: Isidro Lam MD 02/09/2020 5:35 AM CDT
--- NOTE | 2020-02-09 05:43 | CT ---
EXAM: CT head without IV contrast CLINICAL DATA: 89-year-old male status post fall with mild head pain TECHNICAL DATA: Multiple axial CT images of the brain were performed followed by sagittal and coronal reconstructed images. The CT study is performed according to ALARA (as low as reasonably achievable) or ALARA/IMAGE GENTLY, with automatic adjustment of mA and/or kV according to patient size. Performed on: 02/09/2020 at 5:06 AM Comparisons: 03/09/2019 and 11/04/2016. FINDINGS: There is no evidence of mass, acute mass effect or midline shift. There are no acute extra-axial fluid collections. There is no evidence of acute intracranial hemorrhage. The cerebral sulci and ventricles are prominent consistent with moderate cerebral volume loss. There are scattered areas of decreased attenuation within the subcortical and periventricular white matter most likely due to mild chronic microangiopathy. There is a grossly stable left retrocerebellar arachnoid cyst. There is mild mucosal thickening of the paranasal sinuses. There is trace opacification of a few mastoid air cells. The orbital contents are grossly unremarkable. No acute osseous abnormalities are identified. There are degenerative changes along the visualized portions of the upper cervical spine. No focal soft tissue abnormalities are identified. IMPRESSION: 1. There is no evidence of acute intracranial pathology. 2. No significant interval change when compared to the prior studies. There is moderate cerebral atrophy with findings compatible with chronic microangiopathy and grossly stable left retrocerebellar arachnoid cyst. Electronically signed by: Hailey Gentile DO 02/09/2020 5:41 AM CDT
[2020-02-09 05:58] VITALS: O2SAT 95
--- NOTE | 2020-02-09 05:59 | ED.PDOC ---
History of Present Illness - General Chief Complaint: Trauma Stated Complaint: fall, neck pain Time Seen by Provider: 02/09/20 04:43 Source: EMS notes reviewed, [facility] records Exam Limitations: clinical condition - History of Present Illness Initial Comments: The patient is an 89-year-old male presents emergency room secondary to suspicion of the patient having some neck pain. He really does not communicate very well due to his dementia. I see no gross evidence of any head trauma. He is not reporting any significant neck pain when I palpate his neck. C-collar remains in place here. No evidence of any pain in his extremities with passive or active movement. He does still have chronic +3 edema. Timing/Duration: unsure Severity: mild Improving Factors: nothing Worsening Factors: nothing Allergies/Adverse Reactions: Allergies NO KNOWN ALLERGY Allergy (Verified 08/27/19 17:16) Home Medications: Ambulatory Orders Amiodarone HCl [Pacerone] 200 mg PO DAILY 06/24/16 Aspirin [Aspirin EC] 81 mg PO DAILY 06/24/16 Finasteride [Proscar] 5 mg PO BEDTIME 06/24/16 Metoprolol Succinate [Metoprolol Succinate ER] 50 mg PO DAILY 06/24/16 Multiple Vitamins W/ Minerals [Multi For Him 50+] 1 tab PO DAILY 06/24/16 Potassium Chloride [K-Tab] 10 meq PO BID 06/24/16 Levothyroxine Sodium [Synthroid] 100 mcg PO DAILY@62906/29/16 Atorvastatin Calcium [Lipitor] 20 mg PO BEDTIME 02/08/18 Pantoprazole Tablet [Protonix] 40 mg PO DAILY@62902/08/18 Apixaban [Eliquis] 2.5 mg PO BID #30 tab 02/11/18 Acetaminophen [Tylenol] 650 mg PO Q4H PRN 03/29/19 Loratadine [Claritin] 10 mg PO DAILY 03/29/19 Senna/Docusate Tab [Senokot-S] 2 ea PO BID 03/29/19 Simethicone 80 mg PO Q6HR PRN 03/29/19 Tamsulosin [Flomax] 0.4 mg PO BID #0 03/29/19 Magnesium Hydroxide [Milk Of Magnesia] 30 ml PO Q24HR PRN 04/29/19 Nystatin-Triamcin Cream 10,000 unit TOP TID PRN 04/29/19 Ondansetron HCl [Zofran] 4 mg PO Q4H PRN 08/27/19 Sacubitril-Valsartan [Entresto 49-51 mg] 1 tab PO BID 08/27/19 Uti-Stat 30 ml PO DAILY 12/02/19 Furosemide Tab [Lasix Tab] 40 mg PO 0900,1700 tab 12/06/19 Potassium Chloride Tab [K-Dur] 20 meq PO BID #30 tab 02/05/20 Spironolactone 25 mg PO DAILY #10 tab 02/05/20 Magnesium Hydroxide [Hunt Milk of Magnesia] 400 mg PO PRN PRN 02/09/20 Metolazone 2.5 mg PO DAILY 02/09/20 Multiple Vitamin [Multi Vitamin Daily] 1 tab PO DAILY 02/09/20 Nystatin-Triamcinolone [Nystatin/Triamcinolon... 753327-3.1 Unit/gm-%] 1 cre EX QSHIFT 02/09/20 Ondansetron HCl [Zofran] 4 mg PO PRN 02/09/20 Potassium Chloride [Potassium Chloride ER] 10 meq PO DAILY 02/09/20 Review of Systems - Review of Systems Review of Systems: 02/09/20 05:57 Despite patient who is of course a poor source of information Constitutional: States: no symptoms reported EENTM: States: no symptoms reported Respiratory: States: no symptoms reported Cardiology: States: no symptoms reported Gastrointestinal/Abdominal: States: no symptoms reported Genitourinary: States: no symptoms reported Musculoskeletal: States: no symptoms reported, see HPI Skin: States: no symptoms reported Neurological: States: no symptoms reported, see HPI Endocrine: States: no symptoms reported All other Systems: No Change from Baseline Past Medical History (General) - Patient Medical History Hx Seizures: No Hx Stroke: No Hx Dementia: Yes Hx Asthma: No Hx of COPD: Yes Hx Cardiac Disorders: Yes - ASHD, a fib Hx Congestive Heart Failure: Yes Hx Pacemaker: Yes Hx Hypertension: Yes Hx Thyroid Disease: Yes - Hypothyroidism Hx Diabetes: No Hx Gastroesophageal Reflux: - Hx diverticulitis Hx Renal Disease: - Urinary retention Hx Cancer: No Hx MRSA: No - Vaccination History Hx Tetanus, Diphtheria Vaccination: Yes Hx Influenza Vaccination: Yes Hx Pneumococcal Vaccination: Yes - Social History Hx Tobacco Use: No Hx Alcohol Use: Yes Hx Substance Use: No Hx Substance Use Treatment: No Hx Depression: No Hx Physical Abuse: No Hx Emotional Abuse: No - Activities of Daily Living Half-Way/Assisted Living (if applicable):: [facility] - Female History Patient : No Family Medical History - Family History Father Family History: Unknown Living Status: Mother Family History: Unknown Living Status: Physical Exam - Physical Exam General Appearance: Alert, Comfortable, No apparent distress Eye Exam: bilateral normal Ears, Nose, Throat: normal pharynx Neck: non-tender, supple Respiratory: lungs clear, normal breath sounds, no respiratory distress, no accessory muscle use Cardiovascular/Chest: normal peripheral pulses Peripheral Pulses: radial,right: 2+, radial,left: 2+ Gastrointestinal/Abdominal: non tender, soft Rectal Exam: deferred Extremity: normal range of motion, normal capillary refill, pedal edema 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 Skin Exam: normal color Comments: Vital Signs - 24 hr 02/09/20 02/09/20 02/09/20 04:54 05:24 05:29 Temperature 97.2 F L Pulse Rate [ 87 88 left] Respiratory 16 16 16 Rate Blood Pressure 106/61 114/73 [left] O2 Sat by Pulse 97 94 L Oximetry 02/09/20 05:57 Temperature Pulse Rate [ 89 left] Respiratory 16 Rate Blood Pressure 111/64 [left] O2 Sat by Pulse 95 Oximetry Progress - Progress Progress: 02/09/20 06:00 The patient is a 89-year-old male sent from a [facility] for suspicion of neck pain after having had a fall today at the [facility]. I cannot tell if the patient is hurting in his neck. CT scan of the head and neck show no acute pathology. He appears to be neurologically at his baseline. Blood pressures have been within normal limits here. The patient will be returned to his [facility]. Fall precautions need to be taken. giovani pride 747 - Results/Orders Results/Orders: CT scan of the cervical spine shows significant narrowing of the disc space from C5-C6 and C6-C7. No acute trauma. CT scan of the head showed no acute intracranial pathology. 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 - EKG/XRAY/CT CT Ordered: Yes Departure - Departure Clinical Impression: Fall at [facility] Qualifiers: Encounter type: initial encounter Qualified Code(s): W19.XXXA - Unspecified fall, initial encounter; Y92.129 - Unspecified place in [facility] as the place of occurrence of the external cause Disposition: Discharge to SNF Condition: Fair Departure Forms: ED Discharge - Pt. Copy, Patient Portal Self Enrollment Diet: regular diet Activity: other Referrals: Jonathan Nichole MD [Primary Care Provider] - 1-5 Days Home Medications: Ambulatory Orders Amiodarone HCl [Pacerone] 200 mg PO DAILY 06/24/16 Aspirin [Aspirin EC] 81 mg PO DAILY 06/24/16 Finasteride [Proscar] 5 mg PO BEDTIME 06/24/16 Metoprolol Succinate [Metoprolol Succinate ER] 50 mg PO DAILY 06/24/16 Multiple Vitamins W/ Minerals [Multi For Him 50+] 1 tab PO DAILY 06/24/16 Potassium Chloride [K-Tab] 10 meq PO BID 06/24/16 Levothyroxine Sodium [Synthroid] 100 mcg PO DAILY@62906/29/16 Atorvastatin Calcium [Lipitor] 20 mg PO BEDTIME 02/08/18 Pantoprazole Tablet [Protonix] 40 mg PO DAILY@30 02/08/18 Apixaban [Eliquis] 2.5 mg PO BID #30 tab 02/11/18 Acetaminophen [Tylenol] 650 mg PO Q4H PRN 03/29/19 Loratadine [Claritin] 10 mg PO DAILY 03/29/19 Senna/Docusate Tab [Senokot-S] 2 ea PO BID 03/29/19 Simethicone 80 mg PO Q6HR PRN 03/29/19 Tamsulosin [Flomax] 0.4 mg PO BID #0 03/29/19 Magnesium Hydroxide [Milk Of Magnesia] 30 ml PO Q24HR PRN 04/29/19 Nystatin-Triamcin Cream 10,000 unit TOP TID PRN 04/29/19 Ondansetron HCl [Zofran] 4 mg PO Q4H PRN 08/27/19 Sacubitril-Valsartan [Entresto 49-51 mg] 1 tab PO BID 08/27/19 Uti-Stat 30 ml PO DAILY 12/02/19 Furosemide Tab [Lasix Tab] 40 mg PO 0900,1700 tab 12/06/19 Potassium Chloride Tab [K-Dur] 20 meq PO BID #30 tab 02/05/20 Spironolactone 25 mg PO DAILY #10 tab 02/05/20 Magnesium Hydroxide [Hunt Milk of Magnesia] 400 mg PO PRN PRN 02/09/20 Metolazone 2.5 mg PO DAILY 02/09/20 Multiple Vitamin [Multi Vitamin Daily] 1 tab PO DAILY 02/09/20 Nystatin-Triamcinolone [Nystatin/Triamcinolon... 698632-1.1 Unit/gm-%] 1 cre EX QSHIFT 02/09/20 Ondansetron HCl [Zofran] 4 mg PO PRN 02/09/20 Potassium Chloride [Potassium Chloride ER] 10 meq PO DAILY 02/09/20 Additional Instructions: The patient is a 89-year-old male sent from a [facility] for suspicion of neck pain after having had a fall today at the [facility]. I cannot tell if the patient is hurting in his neck. CT scan of the head and neck show no acute pathology. He appears to be neurologically at his baseline. Blood pressures have been within normal limits here. The patient will be retu rned to his [facility]. Fall precautions need to be taken. EKG again shows atrial fibrillation with ventricularly paced beat. 87 bpm.
[2020-02-09 06:06] VITALS: BP 124/73
[2020-02-09 06:34] VITALS: TEMP 97.8
== END 2020-02-09 06:25 ==
LOC: ER 04:36
DX: M54.2 Cervicalgia (principal); F03.90 Unspecified dementia, unspecified severity, without behavioral disturbance, psychotic disturbance, mood disturbance, and anxiety; I25.10 Atherosclerotic heart disease of native coronary artery without angina pectoris; I10 Essential (primary) hypertension; I48.91 Unspecified atrial fibrillation; I50.9 Heart failure, unspecified; Z95.0 Presence of cardiac pacemaker; Z79.82 Long term (current) use of aspirin; Z79.899 Other long term (current) drug therapy; W19.XXXA Unspecified fall, initial encounter; Y92.129 Unspecified place in nursing home as the place of occurrence of the external cause

== ENCOUNTER 2020-04-28 13:59 | Emergency (ER) | payer MEDICARE, OTHER ==
--- NOTE | 2020-04-28 16:29 | RAD ---
EXAM DESCRIPTION: Chest,1 View CLINICAL HISTORY: 89 years Male, fever COMPARISON: Previous chest x-ray December 05, 2019 TECHNIQUE: AP portable chest. FINDINGS: Heart size is large with centrally increased pulmonary vascularity. Cardiac pacer is in place. Surgical clips in the left anterior mediastinum. Infiltrative changes are seen in the perihilar regions and right upper lobe consistent with pneumonia or pulmonary edema. Infiltrates or edema appear increased compared to the previous study. No pulmonary mass or worrisome nodule. No pneumothorax or pleural effusion. Bones are unremarkable. IMPRESSION: Large heart with increased vascularity. Bilateral infiltrates or pulmonary edema. Electronically signed by: Bhavesh Valentin MD 04/28/2020 4:27 PM CDT
[2020-04-28] MEDS ORDERED: DEXAMETHASONE 4 MG TAB PO ONE (16:31)
[2020-04-28] MEDS ORDERED: AZITHROMYCIN 250 MG TAB PO ONE (16:31)
--- NOTE | 2020-04-28 16:35 | ED.PDOC ---
History of Present Illness - General Chief Complaint: Fever Stated Complaint: fever, cough Time Seen by Provider: 04/28/20 14:03 Source: patient, EMS notes reviewed, long term records Exam Limitations: clinical condition - History of Present Illness Initial Comments: The patient is an 89-year-old male presented emergency room secondary to a fever up to 102 at the long term. He has not hypoxic. He has had a little bit of a cough. He does have dementia but no real altered mental status. No respiratory distress. There are numerous coronavirus patients at the long term. No syncope. No chest pain. No abdominal pain. No diarrhea. The patient is afebrile by time of arrival. Timing/Duration: 4-6 hours Severity: mild Improving Factors: nothing Worsening Factors: nothing Associated Symptoms: denies symptoms Allergies/Adverse Reactions: Allergies NO KNOWN ALLERGY Allergy (Verified 04/28/20 15:05) Home Medications: Ambulatory Orders Amiodarone HCl [Pacerone] 200 mg PO DAILY 06/24/16 Aspirin [Aspirin EC] 81 mg PO DAILY 06/24/16 Finasteride [Proscar] 5 mg PO BEDTIME 06/24/16 Metoprolol Succinate [Metoprolol Succinate ER] 50 mg PO DAILY 06/24/16 Multiple Vitamins W/ Minerals [Multi For Him 50+] 1 tab PO DAILY 06/24/16 Potassium Chloride [K-Tab] 10 meq PO BID 06/24/16 Levothyroxine Sodium [Synthroid] 100 mcg PO DAILY@62906/29/16 Atorvastatin Calcium [Lipitor] 20 mg PO BEDTIME 02/08/18 Pantoprazole Tablet [Protonix] 40 mg PO DAILY@62902/08/18 Apixaban [Eliquis] 2.5 mg PO BID #30 tab 02/11/18 Acetaminophen [Tylenol] 650 mg PO Q4H PRN 03/29/19 Loratadine [Claritin] 10 mg PO DAILY 03/29/19 Senna/Docusate Tab [Senokot-S] 2 ea PO BID 03/29/19 Simethicone 80 mg PO Q6HR PRN 03/29/19 Tamsulosin [Flomax] 0.4 mg PO BID #0 03/29/19 Magnesium Hydroxide [Milk Of Magnesia] 30 ml PO Q24HR PRN 04/29/19 Nystatin-Triamcin Cream 10,000 unit TOP TID PRN 04/29/19 Ondansetron HCl [Zofran] 4 mg PO Q4H PRN 08/27/19 Sacubitril-Valsartan [Entresto 49-51 mg] 1 tab PO BID 08/27/19 Uti-Stat 30 ml PO DAILY 12/02/19 Furosemide Tab [Lasix Tab] 40 mg PO 0900,1700 tab 12/06/19 Potassium Chloride Tab [K-Dur] 20 meq PO BID #30 tab 02/05/20 Spironolactone 25 mg PO DAILY #10 tab 02/05/20 Magnesium Hydroxide [Hunt Milk of Magnesia] 400 mg PO PRN PRN 02/09/20 Metolazone 2.5 mg PO DAILY 02/09/20 Multiple Vitamin [Multi Vitamin Daily] 1 tab PO DAILY 02/09/20 Nystatin-Triamcinolone [Nystatin/Triamcinolon... 771798-8.1 Unit/gm-%] 1 cre EX QSHIFT 02/09/20 Ondansetron HCl [Zofran] 4 mg PO PRN 02/09/20 Potassium Chloride [Potassium Chloride ER] 10 meq PO DAILY 02/09/20 Azithromycin 250 mg PO DAILY #4 tab 04/28/20 Dexamethasone 4 mg PO DAILY #6 tab 04/28/20 Review of Systems - Review of Systems Constitutional: States: malaise EENTM: States: no symptoms reported Respiratory: States: cough Cardiology: States: no symptoms reported Gastrointestinal/Abdominal: States: no symptoms reported Genitourinary: States: no symptoms reported Musculoskeletal: States: no symptoms reported Skin: States: no symptoms reported Neurological: States: no symptoms reported - Chronic changes only Endocrine: States: no symptoms reported All other Systems: No Change from Baseline Past Medical History (General) - Patient Medical History Hx Seizures: No Hx Stroke: No Hx Dementia: Yes Hx Asthma: No Hx of COPD: Yes Hx Cardiac Disorders: Yes - ASHD, a fib Hx Congestive Heart Failure: Yes Hx Pacemaker: Yes Hx Hypertension: Yes Hx Thyroid Disease: Yes - Hypothyroidism Hx Diabetes: No Hx Gastroesophageal Reflux: - Hx diverticulitis Hx Renal Disease: - Urinary retention Hx Cancer: No Hx MRSA: No - Vaccination History Hx Tetanus, Diphtheria Vaccination: Yes Hx Influenza Vaccination: Yes Hx Pneumococcal Vaccination: Yes - Social History Hx Tobacco Use: No Hx Alcohol Use: Yes Hx Substance Use: No Hx Substance Use Treatment: No Hx Depression: No Hx Physical Abuse: No Hx Emotional Abuse: No - Activities of Daily Living Correction/Assisted Living (if applicable):: [facility] (if applicable):: None - Female History Patient : No Family Medical History - Family History Father Family History: Unknown Living Status: Mother Family History: Unknown Living Status: Physical Exam - Physical Exam General Appearance: Alert, Comfortable, No apparent distress Eye Exam: bilateral normal Ears, Nose, Throat: hearing grossly normal, normal pharynx Neck: non-tender, supple Respiratory: no respiratory distress, no accessory muscle use, rales - Very mild and scattered Cardiovascular/Chest: normal peripheral pulses, other - Regular rate Peripheral Pulses: radial,right: 2+, radial,left: 2+ Gastrointestinal/Abdominal: non tender, soft Back Exam: no CVA tenderness Extremity: non-tender, normal capillary refill, pedal edema - Possibly mild trace edema 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 He recognizes several people. He is uncertain which hospital and he is uncertain of the date. Skin Exam: normal color Comments: Vital Signs - 24 hr 04/28/20 04/28/20 04/28/20 14:04 14:52 16:00 Temperature 98.3 F 97.7 F Pulse Rate [ 62 62 60 brachial] Respiratory 18 18 22 Rate Blood Pressure 146/79 138/68 [Left Arm] O2 Sat by Pulse 95 89 L Oximetry Progress - Progress Progress: Chest x-ray shows very mild scattered infiltrates. 04/28/20 16:38 Laboratory Tests 04/28/20 04/28/20 14:21 14:21 WBC 3.6 L RBC 4.15 L Hgb 12.4 L Hct 36.8 L MCV 88.6 MCH 29.8 MCHC 33.6 RDW 17.3 H Plt Count 171 MPV 7.4 Absolute Neuts (auto) 2.20 Absolute Lymphs (auto) 0.80 L Absolute Monos (auto) 0.60 Absolute Eos (auto) 0.00 Absolute Basos (auto) 0.00 Neutrophils % 61.1 Lymphocytes % 22.2 Monocytes % 15.9 H Eosinophils % 0.4 L Basophils % 0.4 Sodium 134 L Potassium 3.5 L Chloride 100 L Carbon Dioxide 24 Anion Gap 13.5 BUN 21 H Creatinine 1.00 BUN/Creatinine Ratio 21.0 H Random Glucose 96 Serum Osmolality 271.1 L Calcium 8.6 Total Bilirubin 1.5 H AST 37 ALT 19 Alkaline Phosphatase 72 Creatine Kinase 65 CK-MB (CK-2) 2.1 CK-MB (CK-2) % Not Reportable Troponin I 0.02 Serum Total Protein 7.0 Albumin 3.0 L Globulin 4.0 H Albumin/Globulin Ratio 0.8 L 04/28/20 16:38 Assessment and plan: The patient is a 89-year-old male sent up secondary to fever. The patient has tested positive for coronavirus here. He is not requiring supplemental oxygen at this point. After discussion with his primary care doctor, the patient will be sent back with low-dose azithromycin for 5 days along with dexamethasone for the next 7 days. He apparently is already on Eliquis as a blood thinner. Obviously the patient is of advanced age and if he is showing any significant evidence of deterioration then a repeat evaluation can be done. Otherwise his primary care doctor would like to see him back at the [facility] in the next day or 2. ER warnings are given. giovani shannen 747 - Results/Orders Results/Orders: Vital Signs - 24 hr 04/28/20 04/28/20 04/28/20 14:04 14:52 16:00 Temperature 98.3 F 97.7 F Pulse Rate [ 62 62 60 brachial] Respiratory 18 18 22 Rate Blood Pressure 146/79 138/68 [Left Arm] O2 Sat by Pulse 95 89 L Oximetry Repeat pulse ox check shows 96% while sleeping. Departure - Departure Clinical Impression: Pneumonia due to 2019 novel coronavirus Disposition: Discharge to SNF Condition: Fair Departure Forms: ED Discharge - Pt. Copy, Patient Portal Self Enrollment Diet: regular diet Activity: increase activity as tolerated Referrals: Jonathan Nichole MD [Physicians] - 1-2 Days Prescriptions: Azithromycin 250 mg PO DAILY #4 tab Dexamethasone 4 mg PO DAILY #6 tab Home Medications: Ambulatory Orders Amiodarone HCl [Pacerone] 200 mg PO DAILY 06/24/16 Aspirin [Aspirin EC] 81 mg PO DAILY 06/24/16 Finasteride [Proscar] 5 mg PO BEDTIME 06/24/16 Metoprolol Succinate [Metoprolol Succinate ER] 50 mg PO DAILY 06/24/16 Multiple Vitamins W/ Minerals [Multi For Him 50+] 1 tab PO DAILY 06/24/16 Potassium Chloride [K-Tab] 10 meq PO BID 06/24/16 Levothyroxine Sodium [Synthroid] 100 mcg PO DAILY@62906/29/16 Atorvastatin Calcium [Lipitor] 20 mg PO BEDTIME 02/08/18 Pantoprazole Tablet [Protonix] 40 mg PO DAILY@62902/08/18 Apixaban [Eliquis] 2.5 mg PO BID #30 tab 02/11/18 Acetaminophen [Tylenol] 650 mg PO Q4H PRN 03/29/19 Loratadine [Claritin] 10 mg PO DAILY 03/29/19 Senna/Docusate Tab [Senokot-S] 2 ea PO BID 03/29/19 Simethicone 80 mg PO Q6HR PRN 03/29/19 Tamsulosin [Flomax] 0.4 mg PO BID #0 03/29/19 Magnesium Hydroxide [Milk Of Magnesia] 30 ml PO Q24HR PRN 04/29/19 Nystatin-Triamcin Cream 10,000 unit TOP TID PRN 04/29/19 Ondansetron HCl [Zofran] 4 mg PO Q4H PRN 08/27/19 Sacubitril-Valsartan [Entresto 49-51 mg] 1 tab PO BID 08/27/19 Uti-Stat 30 ml PO DAILY 12/02/19 Furosemide Tab [Lasix Tab] 40 mg PO 0900,1700 tab 12/06/19 Potassium Chloride Tab [K-Dur] 20 meq PO BID #30 tab 02/05/20 Spironolactone 25 mg PO DAILY #10 tab 02/05/20 Magnesium Hydroxide [Hunt Milk of Magnesia] 400 mg PO PRN PRN 02/09/20 Metolazone 2.5 mg PO DAILY 02/09/20 Multiple Vitamin [Multi Vitamin Daily] 1 tab PO DAILY 02/09/20 Nystatin-Triamcinolone [Nystatin/Triamcinolon... 794469-0.1 Unit/gm-%] 1 cre EX QSHIFT 05/02/20 Ondansetron HCl [Zofran] 4 mg PO PRN 02/09/20 Potassium Chloride [Potassium Chloride ER] 10 meq PO DAILY 02/09/20 Azithromycin 250 mg PO DAILY #4 tab 04/28/20 Dexamethasone 4 mg PO DAILY #6 tab 04/28/20 Additional Instructions: The patient is a 89-year-old male sent up secondary to fever. The patient has tested positive for coronavirus here. He is not requiring supplemental oxygen at this point. After discussion with his primary care doctor, the patient will be sent back with low-dose azithromycin for 5 days along with dexamethasone for the next 7 days. He apparently is already on Eliquis as a blood thinner. Obviously the patient is of advanced age and if he is showing any significant evidence of deterioration then a repeat evaluation can be done. Otherwise his primary care doctor would like to see him back at the [facility] in the next day or 2. ER warnings are given.
[2020-04-28 17:44] VITALS: TEMP 97.4; O2SAT 95
[2020-04-28 17:47] VITALS: BP 118/76
== END 2020-04-28 17:35 ==
LOC: ER 13:59
DX: U07.1 COVID-19 (principal); J12.89 Other viral pneumonia; I11.0 Hypertensive heart disease with heart failure; I50.9 Heart failure, unspecified; I48.91 Unspecified atrial fibrillation; F03.90 Unspecified dementia, unspecified severity, without behavioral disturbance, psychotic disturbance, mood disturbance, and anxiety; Z79.899 Other long term (current) drug therapy; Z79.01 Long term (current) use of anticoagulants
CPT/HCPCS: 36415; 71045; 80053; 82550; 82553; 84484; 85025; 87040; 87635; J8540; Q0144

== ENCOUNTER → 2020-09-09 | Outpatient (CLI) | payer MEDICARE, OTHER | LOC: GOCC 18:24 | PROVIDERS: ATTEND Family Medicine | DX: N39.0 Urinary tract infection, site not specified (principal) ==

== ENCOUNTER → 2020-10-08 | Outpatient (CLI) | payer MEDICARE, OTHER | LOC: GOCC 16:46 | PROVIDERS: ATTEND Family Medicine | DX: R30.0 Dysuria (principal); R50.9 Fever, unspecified ==